=== PATIENT | male | born 1985 | race Caucasian/White ===

== ENCOUNTER 2020-04-12 15:01 | Inpatient (IN) ==
[2020-04-12] MEDS ORDERED: SODIUM CHLORIDE 0.9% 1000ML 2,000 ML IV SCH (15:30)
--- NOTE | 2020-04-12 15:49 | XRay Report ---
XR chest 1V portable HISTORY: 34 years-old Male seizure acute seizure like activity COMPARISON: None TECHNIQUE: Portable AP view of the chest FINDINGS: Cardiomediastinal and hilar silhouettes are within normal limits. No pneumothorax, pleural effusion, airspace consolidation or overt pulmonary edema. Bones of the chest appear grossly intact. IMPRESSION: No acute process. ACT 112: Negative or not required by law. The above report was generated using voice recognition software. It may contain grammatical, syntax o r spelling errors. Electronically signed by: Jorje Aguero M.D. 04/12/2020 3:47 PM
[2020-04-12 15:58] LABS: Basophils # (auto) 0.08 K/uL (0-0.2); Basophils % (auto) 1.1 %; Eosinophils # (auto) 0.01 K/uL (0-0.5); Eosinophils % (auto) 0.1 %; Hematocrit (blood only) 41.4 % (42-52); Hemoglobin 13.8 g/dL (14.0-18.0); Immature Granulocytes # (auto) 0.02 K/uL (0.00-0.02); Immature Granulocytes % (auto) 0.3 %; Lymphocytes # (auto) 0.59 K/uL (1.2-3.4); Lymphocytes % (auto) 8.3 %; Mean Corpuscular Hemoglobin 32.8 pg (25-34); Mean Corpuscular Hgb Conc 33.3 g/dL (32-36); Mean Corpuscular Volume 98.3 fL (80-100); Mean Platelet Volume 10.9 fL (7.4-10.4); Monocytes # (auto) 1.02 K/uL (0.11-0.59); Monocytes % (auto) 14.4 %; Neutrophils # (auto) 5.38 K/uL (1.4-6.5); Neutrophils % (auto) 75.8 %; Platelet Count 124 K/uL (130-400); RDW Coefficient of Variation 13.3 % (11.5-14.5); RDW Standard Deviation 47.8 fL (36.4-46.3); Red Blood Count 4.21 M/uL (4.7-6.1)
--- NOTE | 2020-04-12 16:14 | CT Scan Report ---
CT SCAN OF THE BRAIN WITHOUT IV CONTRAST CLINICAL HISTORY: Seizure. COMPARISON STUDY: No priors. TECHNIQUE: Unenhanced axial CT scan of the brain is performed from the vertex to the skull base. A d ose lowering technique was utilized adhering to the principles of ALARA. CT DOSE: 537.48 mGy.cm FINDINGS: Brain parenchyma: Mild involutional change is advanced for age. Changes in the anterior frontal white matter are likely related to a remote insult. There is no hemorrhage, mass effect, or evidence of ac [place] territorial ischemia by CT criteria. Brizuela-white matter differentiation is preserved. No extra-axi al fluid collection is seen. Ventricles, sulci, cisterns: Normal in configuration. Intracranial vasculature: The visualized intracranial vasculature at the skull base is normal in appe arance. Calvarium: Unremarkable. Sinuses and mastoids: The visualized paranasal sinuses are clear. The mastoid air cells are well pneu matized. Orbits: The bony orbits are grossly intact. IMPRESSION: 1. There is no hemorrhage, mass effect, or evidence of acute territorial ischemia by CT criteria. 2. Mild involutional change is advanced for age. ACT 112: Negative or not required by law. Electronically signed by: Nolan Tejeda M.D. 04/12/2020 4:12 PM
[2020-04-12 16:19] LABS: Alanine Aminotransferase 106 U/L (12-78); Albumin Level 4.6 gm/dl (3.4-5.0); Aspartate Aminotransferase 184 U/L (15-37); BUN Creatinine Ratio 3.7 (10-20); Blood Urea Nitrogen 4 mg/dl (7-18); Calcium 10.4 mg/dl (8.5-10.1); Carbon Dioxide 16 mmol/L (21-32); Chloride 99 mmol/L (98-107); Creatinine Clr Calc Pharmacy 96.8 ml/min; Est GFR (African American) 117.6; Est GFR (Non-African American) 101.4; Glucose 87 mg/dl (70-99); Magnesium 1.6 mg/dl (1.8-2.4); Potassium 3.8 mmol/L (3.5-5.1); Sodium 135 mmol/L (136-145)
[2020-04-12 16:22] LABS: Albumin Globulin Ratio 1.2 (0.9-2); Alkaline Phosphatase 74 U/L (45-117); Bilirubin,Total 1.4 mg/dl (0.2-1); Globulin 3.9 gm/dl (2.5-4.0); Total Protein 8.5 gm/dl (6.4-8.2)
[2020-04-12 16:48] LABS: Troponin I < 0.015 ng/ml (0-0.045)
[2020-04-12] MEDS ORDERED: THIAMINE HCL 100 MG in SYRINGE 9 ML IV STA (16:49)
[2020-04-12] MEDS ORDERED: LORazepam 2 MG/4 ML VIAL IV STA (16:49)
[2020-04-12] MEDS ORDERED: FOLIC ACID 1 MG in SYRINGE 9.8 ML IV STA (16:49)
--- NOTE | 2020-04-12 16:49 | Emergency Department Note ---
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 He sat down and then he woke up. Per report from EMS the gentleman that were working with him saw him shaking and having a seizure. EMS was called and he was brought in. He was slightly confused when he woke back up. Patient has no other complaints at this time. He denies any headache, change in vision, chest pain shortness of breath nausea vomiting or diarrhea. He notes this is never happened before. ROS: See above HPI for pertinent positives & negatives. A total of 10 systems reviewed and were otherwise negative. PAST MEDICAL HISTORY:None PAST SURGICAL HISTORY:None FAMILY HISTORY:See Below SOCIAL HISTORY:admits to alcohol abuse HOME MEDICATIONS:See Below ALLERGIES:See Below VITALS:See Below PHYSICAL EXAMINATION: GENERAL: Sitting up in bed, alert, disheveled, shaking in the upper extremities EYE EXAM: normal conjunctiva. PERRL and EOM's intact. OROPHARYNX: no exudate, no erythema, lips, buccal mucosa, and tongue normal and mucous membranes are moist NECK: supple, no nuchal rigidity, no adenopathy, non-tender LUNGS: Clear to auscultation. Normal chest wall mechanics HEART: Tachycardic S1 normal and S2 normal ABDOMEN: abdomen soft, non-tender, normo-active bowel sounds, no masses, no rebound or guarding. BACK: Back is symmetrical on inspection and there is no deformity, no midline tenderness, no CVA tenderness. SKIN: no rashes and no bruising UPPER EXTREMITIES: upper extremities are grossly normal. LOWER EXTREMITIES: No pitting edema. NEURO EXAM: Normal sensorium, cranial nerves II-XII intact, normal speech, no weakness of arms, no weakness of legs. No drift. Finger to nose intact. Gross sensation intact. Tremors in a upper extremities MEDICAL DECISION MAKING: Patient is a 34-year-old male who presents the ER for possible seizure. IV was established blood work was obtained. Patient was persistently tachycardic in the 140s to 150s. Labs showed no significant leukocytosis or anemia. BMP with a CO2 of 16 initially had a gap of 20. Creatinine was normal. Magnesium was low at 1.6. T bili was slightly up at 1.5. There is a transaminitis in the mid 100s. Troponin was negative. Glucose was low. I walked in and gave the gen [employer] sandwich and orange juice. After prolonged discussion he admits that he is an alcoholic and has been drinking constantly for the past 2 years. He drinks about 10-12 beers a day. He has been drinking less recently. After discussion with the she notes that this has happened once before in the past. She notes that he has significantly cut down on his drinking recently. UA was negative. Tox was negative. After prolonged discussion with the patient who wanted to leave and the at bedside he was eventually agreeable to staying. Patient was given IV thiamine, folic acid, 2 L of fluids, multivitamin and Ativan. Heart rate had trended down. CT head was negative. Chest x-ray was unremarkable. EKG shows sinus tachycardia. Patient was discussed with hospitalist for admission. Triage Nursing notes reviewed. Prior medical records reviewed Vital Signs: reviewed and remarkable for hypertensive and tachycardic Differential diagnosis: Differential diagnosis includes etiologies such as infection, hypoglycemia, electrolyte abnormalities, cardiac sources, intracerebral event, trauma, toxicologic, neurologic, as well as others were entertained. ER treatment provided: See below Diagnostics interpreted by me: ECG: Sinus tachycardia rate of 125 Normal axis No PVCs Normal QTC Cardiac Monitoring: An order was placed for continuous cardiac monitoring. The monitor shows a rate of 128 with sinus rhythm. Laboratory studies: As stated above and show below. Imaging studies: CT head shows no acute pathology Consultation(s): Discussed with [facility] hospitalist ED COURSE: Procedures: none Critical Care: None Past Med/Surg History Social History Feels Safe at Home: Yes Smoking Status: Never smoker Allergies Allergies Allergy/AdvReac Type Severity Reaction Status Date / Time No Known Allergies Allergy Verified 04/12/20 16:47 Home Meds Home Medications Medication Instructions Recorded Confirmed No Known Home Medications 04/12/20 04/12/20 Results & Data (ED) Vital Signs Vital Signs - 24 hr 04/12/20 15:23 04/12/20 15:29 Temperature 37.1 C Temperature Source Oral Pulse Rate 137 H Respiratory Rate 18 Respiratory Effort / Characteristics Non-Labored Spontaneous Respiratory Depth Normal Respiratory Pattern Regular Blood Pressure 149/97 H Blood Pressure Mean 114 Pulse Oximetry 97 97 Oxygen Delivery Method Room Air Room Air Sepsis Recent Fever Within 48 Hours No Sepsis New/Unexplained Change in Mental Status No Sepsis Action Taken by Nursing No Action Required Laboratory Data Result diagrams: 04/12/20 15:45 04/12/20 16:36 Lab Results 04/12/20 04/12/20 04/12/20 Range/Units 15:45 15:45 16:24 WBC 7.10 (4.8-10.8) K/uL RBC 4.21 L (4.7-6.1) M/uL Hgb 13.8 L (14.0-18.0) g/dL Hct 41.4 L (42-52) % MCV 98.3 (80-100) fL MCH 32.8 (25-34) pg MCHC 33.3 (32-36) g/dL RDW Std Deviation 47.8 H (36.4-46.3) fL RDW Coeff of Joan 13.3 (11.5-14.5) % Plt Count 124 L (130-400) K/uL MPV 10.9 H (7.4-10.4) fL Immature Gran % (Auto) 0.3 % Neut % (Auto) 75.8 % Lymph % (Auto) 8.3 % Ida % (Auto) 14.4 % Eos % (Auto) 0.1 % Baso % (Auto) 1.1 % Immature Gran # (Auto) 0.02 (0.00-0.02) K/uL Neut # (Auto) 5.38 (1.4-6.5) K/uL Lymph # (Auto) 0.59 L (1.2-3.4) K/uL Ida # (Auto) 1.02 H (0.11-0.59) K/uL Eos # (Auto) 0.01 (0-0.5) K/uL Baso # (Auto) 0.08 (0-0.2) K/uL VBG pH (7.36-7.41) VBG pCO2 (38-50) mmHg VBG pO2 mmHg VBG HCO3 mmol/L VBG O2 Saturation % VBG Base Excess mEq/L Barometric Pressure mm/Hg Sodium 135 L (136-145) mmol/L Potassium 3.8 (3.5-5.1) mmol/L Chloride 99 (98-107) mmol/L Carbon Dioxide 16 L (21-32) mmol/L Anion Gap 20.0 H (3-11) BUN 4 L (7-18) mg/dl Creatinine 0.97 (0.6-1.4) mg/dl Est Cr Clr Drug Dosing 96.8 ml/min Est GFR ( Amer) 117.6 Est GFR (Non-Af Amer) 101.4 BUN/Creatinine Ratio 3.7 L (10-20) Glucose 87 (70-99) mg/dl POC Glucose (70-99) mg/dl Calcium 10.4 H (8.5-10.1) mg/dl Phosphorus (2.5-4.9) mg/dl Magnesium 1.6 L (1.8-2.4) mg/dl Total Bilirubin 1.4 H (0.2-1) mg/dl AST 184 H (15-37) U/L ALT 106 H (12-78) U/L Alkaline Phosphatase 74 (45-117) U/L Troponin I < 0.015 (0-0.045) ng/ml Total Protein 8.5 H (6.4-8.2) gm/dl Albumin 4.6 (3.4-5.0) gm/dl Globulin 3.9 (2.5-4.0) gm/dl Albumin/Globulin Ratio 1.2 (0.9-2) Urine Color Urine Appearance (Clear) Urine pH (4.5-7.5) Ur Specific [place] (1.000-1.030) Urine Protein (Negative) Urine Glucose (UA) (Negative) Urine Ketones (Negative) Urine Blood (Negative) Urine Nitrite (Negative) Urine Bilirubin (Negative) Urine Urobilinogen (Negative) Ur Leukocyte Esterase (Negative) Urine WBC (Auto) (0-5) /hpf Urine RBC (Auto) (0-4) /hpf U Hyaline Cast (Auto) (0-5) /lpf U Epithel Cells (Auto) (0-5) /lpf Urine Bacteria (Auto) (Negative) Urine Opiates Screen Neg (Neg) Ur Methadone, Qual Neg (Neg) Urine Barbiturates Neg (Neg) Ur Phencyclidine (PCP) Neg (Neg) U Amphetamin/Meth Scrn Neg (Neg) MDMA (Ecstasy) Screen Neg (Neg) U Benzodiazepines Scrn Neg (Neg) Ur Cocaine Metabolite Neg (Neg) U Marijuana (THC) Screen Neg (Neg) 04/12/20 04/12/20 04/12/20 Range/Units 16:24 16:36 16:36 WBC (4.8-10.8) K/uL RBC (4.7-6.1) M/uL Hgb (14.0-18.0) g/dL Hct (42-52) % MCV (80-100) fL MCH (25-34) pg MCHC (32-36) g/dL RDW Std Deviation (36.4-46.3) fL RDW Coeff of Joan (11.5-14.5) % Plt Count (130-400) K/uL MPV (7.4-10.4) fL Immature Gran % (Auto) % Neut % (Auto) % Lymph % (Auto) % Ida % (Auto) % Eos % (Auto) % Baso % (Auto) % Immature Gran # (Auto) (0.00-0.02) K/uL Neut # (Auto) (1.4-6.5) K/uL Lymph # (Auto) (1.2-3.4) K/uL Ida # (Auto) (0.11-0.59) K/uL Eos # (Auto) (0-0.5) K/uL Baso # (Auto) (0-0.2) K/uL VBG pH 7.38 (7.36-7.41) VBG pCO2 35 L (38-50) mmHg VBG pO2 52 mmHg VBG HCO3 20 mmol/L VBG O2 Saturation < 60.0 % VBG Base Excess -4.3 mEq/L Barometric Pressure 738.9 mm/Hg Sodium 137 (136-145) mmol/L Potassium 3.5 (3.5-5.1) mmol/L Chloride 103 (98-107) mmol/L Carbon Dioxide 19 L (21-32) mmol/L Anion Gap 16.0 H (3-11) BUN 3 L (7-18) mg/dl Creatinine 0.78 (0.6-1.4) mg/dl Est Cr Clr Drug Dosing 120.4 ml/min Est GFR ( Amer) 136.5 Est GFR (Non-Af Amer) 117.8 BUN/Creatinine Ratio 3.4 L (10-20) Glucose 59 L (70-99) mg/dl POC Glucose (70-99) mg/dl Calcium 9.5 (8.5-10.1) mg/dl Phosphorus (2.5-4.9) mg/dl Magnesium (1.8-2.4) mg/dl Total Bilirubin 1.5 H (0.2-1) mg/dl AST 176 H (15-37) U/L ALT 104 H (12-78) U/L Alkaline Phosphatase 72 (45-117) U/L Troponin I (0-0.045) ng/ml Total Protein 7.8 (6.4-8.2) gm/dl Albumin 4.5 (3.4-5.0) gm/dl Globulin 3.3 (2.5-4.0) gm/dl Albumin/Globulin Ratio 1.4 (0.9-2) Urine Color Yellow Urine Appearance Clear (Clear) Urine pH 5.0 (4.5-7.5) Ur Specific [place] 1.014 (1.000-1.030) Urine Protein 2+ H (Negative) Urine Glucose (UA) Negative (Negative) Urine Ketones 1+ H (Negative) Urine Blood 2+ H (Negative) Urine Nitrite Negative (Negative) Urine Bilirubin Negative (Negative) Urine Urobilinogen Negative (Negative) Ur Leukocyte Esterase Negative (Negative) Urine WBC (Auto) 1-5 (0-5) /hpf Urine RBC (Auto) 0-4 (0-4) /hpf U Hyaline Cast (Auto) 5-10 H (0-5) /lpf U Epithel Cells (Auto) 5-10 H (0-5) /lpf Urine Bacteria (Auto) Negative (Negative) Urine Opiates Screen (Neg) Ur Methadone, Qual (Neg) Urine Barbiturates (Neg) Ur Phencyclidine (PCP) (Neg) U Amphetamin/Meth Scrn (Neg) MDMA (Ecstasy) Screen (Neg) U Benzodiazepines Scrn (Neg) Ur Cocaine Metabolite (Neg) U Marijuana (THC) Screen (Neg) 04/12/20 04/12/20 Range/Units 16:36 17:22 WBC (4.8-10.8) K/uL RBC (4.7-6.1) M/uL Hgb (14.0-18.0) g/dL Hct (42-52) % MCV (80-100) fL MCH (25-34) pg MCHC (32-36) g/dL RDW Std Deviation (36.4-46.3) fL RDW Coeff of Joan (11.5-14.5) % Plt Count (130-400) K/uL MPV (7.4-10.4) fL Immature Gran % (Auto) % Neut % (Auto) % Lymph % (Auto) % Ida % (Auto) % Eos % (Auto) % Baso % (Auto) % Immature Gran # (Auto) (0.00-0.02) K/uL Neut # (Auto) (1.4-6.5) K/uL Lymph # (Auto) (1.2-3.4) K/uL Ida # (Auto) (0.11-0.59) K/uL Eos # (Auto) (0-0.5) K/uL Baso # (Auto) (0-0.2) K/uL VBG pH (7.36-7.41) VBG pCO2 (38-50) mmHg VBG pO2 mmHg VBG HCO3 mmol/L VBG O2 Saturation % VBG Base Excess mEq/L Barometric Pressure mm/Hg Sodium (136-145) mmol/L Potassium (3.5-5.1) mmol/L Chloride (98-107) mmol/L Carbon Dioxide (21-32) mmol/L Anion Gap (3-11) BUN (7-18) mg/dl Creatinine (0.6-1.4) mg/dl Est Cr Clr Drug Dosing ml/min Est GFR ( Amer) Est GFR (Non-Af Amer) BUN/Creatinine Ratio (10-20) Glucose (70-99) mg/dl POC Glucose 66 L* (70-99) mg/dl Calcium (8.5-10.1) mg/dl Phosphorus 2.4 L (2.5-4.9) mg/dl Magnesium (1.8-2.4) mg/dl Total Bilirubin (0.2-1) mg/dl AST (15-37) U/L ALT (12-78) U/L Alkaline Phosphatase (45-117) U/L Troponin I (0-0.045) ng/ml Total Protein (6.4-8.2) gm/dl Albumin (3.4-5.0) gm/dl Globulin (2.5-4.0) gm/dl Albumin/Globulin Ratio (0.9-2) Urine Color Urine Appearance (Clear) Urine pH (4.5-7.5) Ur Specific [place] (1.000-1.030) Urine Protein (Negative) Urine Glucose (UA) (Negative) Urine Ketones (Negative) Urine Blood (Negative) Urine Nitrite (Negative) Urine Bilirubin (Negative) Urine Urobilinogen (Negative) Ur Leukocyte Esterase (Negative) Urine WBC (Auto) (0-5) /hpf Urine RBC (Auto) (0-4) /hpf U Hyaline Cast (Auto) (0-5) /lpf U Epithel Cells (Auto) (0-5) /lpf Urine Bacteria (Auto) (Negative) Urine Opiates Screen (Neg) Ur Methadone, Qual (Neg) Urine Barbiturates (Neg) Ur Phencyclidine (PCP) (Neg) U Amphetamin/Meth Scrn (Neg) MDMA (Ecstasy) Screen (Neg) U Benzodiazepines Scrn (Neg) Ur Cocaine Metabolite (Neg) U Marijuana (THC) Screen (Neg) Administered Medications Discontinued Medications Sodium Chloride (Nss 1000ml) 2,000 mls @ 999 mls/hr IV .Q2H1M DEON Stop: 04/12/20 17:30 Last Admin: 04/12/20 16:08 Dose: 999 mls/hr Documented by: [id number] Discharge Plan Visit Data Chief Complaint: Seizure ED Provider: Ayo Kruger Discharge Problem: Alcohol withdrawal, Seizure, Tachycardia, Transaminitis, Hypoglycemia Forms Stand Alone Forms: [facility] [place] Prescriptions Prescriptions: No Action No Known Home Medications RF: 0 Discharge Problem: Alcohol withdrawal Qualifiers: Complication of substance-induced condition: with unspecified complication Qualified Code(s): F10.239 - Alcohol dependence with withdrawal, unspecified
[2020-04-12 16:57] LABS: Base Excess VBG -4.3 mEq/L; HCO3 VBG 20 mmol/L; PCO2 VBG 35 mmHg (38-50); PO2 VBG 52 mmHg; pH VBG 7.38 (7.36-7.41)
[2020-04-12] MEDS ORDERED: MULTIVITAMIN TAB PO SCH (17:00)
[2020-04-12 17:01] LABS: Oxygen Saturation VBG < 60.0 %
[2020-04-12 17:08] LABS: Appearance Urine Clear (Clear); Bacteria Urine Automated Negative (Negative); Bilirubin Urine Negative (Negative); Blood Urine 2+ (Negative); Color Urine Yellow; Glucose Urine UA Negative (Negative); Ketones Urine 1+ (Negative); Leukocyte Esterase Urine Negative (Negative); Nitrite Urine Negative (Negative); Protein Urine 2+ (Negative); RBC Urine Automated 0-4 /hpf (0-4); Specific Gravity Urine 1.014 (1.000-1.030); Urobilinogen Urine Negative (Negative)
[2020-04-12 17:11] LABS: Albumin Level 4.5 gm/dl (3.4-5.0); BUN Creatinine Ratio 3.4 (10-20); Calcium 9.5 mg/dl (8.5-10.1); Creatinine Clr Calc Pharmacy 120.4 ml/min; Est GFR (African American) 136.5; Est GFR (Non-African American) 117.8; Potassium 3.5 mmol/L (3.5-5.1)
[2020-04-12 17:14] LABS: Albumin Globulin Ratio 1.4 (0.9-2); Bilirubin,Total 1.5 mg/dl (0.2-1); Globulin 3.3 gm/dl (2.5-4.0); Total Protein 7.8 gm/dl (6.4-8.2)
[2020-04-12 17:27] LABS: Amphetamines+Metham, Urine Neg (Neg); Barbiturates, Urine Neg (Neg); Benzodiazepine, Urine Neg (Neg); Cocaine, Urine Neg (Neg); MDMA (Ecstacy), Urine Neg (Neg); Methadone, Urine Neg (Neg); Opiate, Urine Neg (Neg); Phencyclidine, Urine Neg (Neg)
[2020-04-12] MEDS ORDERED: LORazepam 1.5 MG/3 ML VIAL IV STA (17:54)
--- NOTE | 2020-04-12 18:00 | Communication Note ---
Date of Service: April 12, 2020 History and physical exam performed by me. History significant for 35-year-old man with history of alcohol abuse, alcohol withdrawal seizure 2 years ago who presented following a seizure episode at work. Patient reported some dizziness just prior to seizures. Could not provide any more history regarding seizures due to loss of consciousness. Last drink was yesterday at 7pm. Drinks 6-8 beers per day. Currently reports some anxiety. Denied any hallucinations (visual, tactile, auditory) Physical exam General: No acute distress, mild tremors of outstretched arms Eyes: PERRL, conjunctivae normal, not pale, anicteric sclerae, EOM intact bilaterally ENMT: External ear and nose normal, oropharynx normal Neck: Normal visual inspection Respiratory: Normal respiratory effort, no respiratory distress, lungs clear to auscultation, no crackles and no wheezes Cardiovascular: Tachycardic. Pulse is regular. S1-2, no pedal edema Gastrointestinal (Abdomen): Abdomen is not distended, soft, non-tender to palpation, no guarding, no palpable hepatosplenomegaly, normal bowel sounds Musculoskeletal: No cyanosis or clubbing, all extremities motor strength 5/5, no pedal edema Neurologic: Alert and oriented x 3, No focal weakness, sensation grossly intact Psychiatric: Euthymic effect Labs significant for platelet count of 124, bicarb of 16, anion gap of 20, magnesium of 1.6, total bilirubin of 1.4, AST of 184, ALT of 106 CT head did not show any acute abnormalities -Seizures, likely alcohol withdrawal -Alcohol abuse -High anion gap Metabolic acidosis -Tr IV ativan CIWA protocol with ativan and gabapentin Discussed alcohol rehab with patient. He is interested in rehab. Get dietary services manager consult IV thiamine stat and continue po daily Folic acid Continue IVF Get alcohol level, lactate Replete electrolyte Monitor LFTs Other plans as detailed in Johanna Cope PA-C's note
--- NOTE | 2020-04-12 18:08 | History & Physical Report ---
Date of Service April 12, 2020 Assessment & Plan (1) Seizure: (2) Alcohol withdrawal: Pt is 34 y/o M with PMH ETOH abuse, seizure in 2018 presented to ER with C/O seizure. 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 Co-workers were able to make sure pt did not fall and lower him to the ground. Pt does not remember incident. It is reported pt was post-ictal after event. Upon ER arrival pt is awake, alert, shaky and anxious. Pt reports drinks 8-12 beers daily. Last drink 7pm on 04/11/2020 Reported h/o seizure in 2018 that pt reports was ETOH withdrawal seizure. Probable alcohol withdrawal seizure vs seizure other etiology In ER pt afebrile, P: 137, R: 18, BP: 149/97, 97% on RA. No leukocytosis, CO2: 19, A, gluc: 59, magnesium: 1.6, phosphorus: 2.4, T Bili: 1.5, AST: 176, ALT: 104, Alk Phos: 72. Urine tox screen negative -In ER given Ativan 2mg IV, Thiamine 100mg IV, Folic acid 1mg IV, multivitamin. Pt given orange juice, peanut butter crackers and sandwich -ETOH level and lactic acid level pending -PCU admit -Seizure precautions -Alcohol withdrawal protocol with IV Ativan, Gabapentin -IVF -Replace electrolytes as below -Folic acid, thiamine and multivitamin daily -EEG -Neurology consult CBC, CMP, magnesium and phosphorus labs in am (3) Alcohol abuse: -ETOH cessation recommended -ETOH withdrawal treatment as above -Pt voices interest in alcohol rehab (4) Hypomagnesemia: Magnesium: 1.6 -Replace and monitor (5) Hypophosphatemia: Phosphorus: 2.4 -Replace and monitor (6) Transaminitis: T Bili: 1.5, AST: 176, ALT: 104, Alk Phos: 72 -Monitor LFTs DVT Prophylaxis -SCDs Full Code Pt previously followed with Dr Kaur, however has not seen 10/2018 Pt was seen and care coordinated with Dr Wu. See addendum History of Present Illness Chief Complaint: Seizure like activity Primary Care Provider: NO PCP Pt is 34 y/o M with PMH ETOH abuse, seizure in 2018 presented to ER with C/O seizure. 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 Co-workers were able to make sure pt did not fall and lower him to the ground. Pt does not remember incident. It is reported pt was post-ictal after event. Upon ER arrival pt is awake, alert, shaky and anxious. Pt reports drinks 8-12 beers daily. Last drink 7pm last night. Reports h/o seizure in 2018 that pt reports was ETOH withdrawal seizure. He denies any recurrent seizure like activity until today. Denies fever/chills, diaphoresis, N/V/D/C, DOTY, dizziness, syncope, vision changes, neck pain, CP, SOB, orthopnea, palpitations, cough, sore throat, choking, otalgia, rhinorrhea, abdominal pain, paresthesias, weakness, extremity weakness, extremity edema, rashes, hallucinations, urinary symptoms. Denies recreational drug use. Allergies Allergy/AdvReac Type Severity Reaction Status Date / Time No Known Allergies Allergy Verified 04/12/20 16:47 Home Medications Home Medications Medication Instructions Recorded Confirmed Type No Known Home Medications 04/12/20 04/12/20 History Past Med/Surg History Medical History Alcohol abuse Surgical History (Updated 04/12/20 @ 18:06 by Johanna Cope PA-C) No significant past surgical history Family History (Updated 04/12/20 @ 18:06 by Johanna Cope PA-C) Grandfather (Paternal) Coronary heart disease Stroke Social History (Updated 04/12/20 @ 18:06 by Johanna Cope PA-C) Feels Safe at Home: Yes Smoking Status: Never smoker Tobacco Type: smokeless tobacco ; Do You Dip or Chew Tobacco: Yes ; Hx Alcohol Use: Yes (8-12 beers daily) Hx Substance Use: No Review of Systems Review of Systems: All systems reviewed & are unremarkable except as noted in HPI & below Physical Exam Physical Exam: General: +anxious appearing, +shaky, WDWN Head: normocephalic, atraumatic Eyes: PERRL, EOM's intact, conjunctiva non-injected, anicteric ENT: normal inspection external ears, nose, mucous membranes moist Neck: supple, trachea midline Lungs: clear, no respiratory distress, no wheezing/rhonchi/rales CV: RRR, no murmur, no pretibial edema Abd: normal BS, soft, non-tender Ext: no cyanosis, no calf tenderness Neuro: Alert, oriented to person, place, month and year, +shaking, no other focal deficits noted, normal affect Skin: warm, dry Results & Data Results & Data ([facility]) Vital Signs (Past 12 Hours) Vital Signs Temp Pulse Pulse Resp BP BP Pulse Ox 04/12/20 17:00 133 H 24 152/115 H 97 04/12/20 15:29 97 04/12/20 15:23 37.1 C 137 H 18 149/97 H 97 Laboratory Results Short CBC 04/12/20 Range/Units 15:45 WBC 7.10 (4.8-10.8) K/uL Hgb 13.8 L (14.0-18.0) g/dL Hct 41.4 L (42-52) % Plt Count 124 L (130-400) K/uL BMP 04/12/20 04/12/20 15:45 16:36 Sodium 135 L 137 Potassium 3.8 3.5 Chloride 99 103 Carbon Dioxide 16 L 19 L BUN 4 L 3 L Creatinine 0.97 0.78 Glucose 87 59 L Calcium 10.4 H 9.5 Cardiac Enzymes 04/12/20 Range/Units 15:45 Troponin I < 0.015 (0-0.045) ng/ml Liver Function 04/12/20 04/12/20 Range/Units 15:45 16:36 Total Bilirubin 1.4 H 1.5 H (0.2-1) mg/dl AST 184 H 176 H (15-37) U/L ALT 106 H 104 H (12-78) U/L Alkaline Phosphatase 74 72 (45-117) U/L Albumin 4.6 4.5 (3.4-5.0) gm/dl Urine 04/12/20 Range/Units 16:24 Urine Color Yellow Urine Appearance Clear (Clear) Urine pH 5.0 (4.5-7.5) Ur Specific [place] 1.014 (1.000-1.030) Urine Protein 2+ H (Negative) Urine Glucose (UA) Negative (Negative) Diagnostic Findings CT HEAD: IMPRESSION: 1. There is no hemorrhage, mass effect, or evidence of acute territorial ischemia by CT criteria. 2. Mild involutional change is advanced for age. CXR: IMPRESSION: No acute process. ECG Rhythm: sinus tachycardia Code Status & VTE Plan VTE Prophylaxis Plan VTE Prophylaxis will be ordered: Yes Supervising Physician Co-Signing Physician Notes History and physical exam performed by me. History significant for 35-year-old man with history of alcohol abuse, alcohol withdrawal seizure 2 years ago who presented following a seizure episode at work. Patient reported some dizziness just prior to seizures. Could not provide any more history regarding seizures due to loss of consciousness. Last drink was yesterday at 7pm. Drinks 6-8 beers per day. Currently reports some anxiety. Denied any hallucinations (visual, tactile, auditory) Physical exam General: No acute distress, mild tremors of outstretched arms Eyes: PERRL, conjunctivae normal, not pale, anicteric sclerae, EOM intact bilaterally ENMT: External ear and nose normal, oropharynx normal Neck: Normal visual inspection Respiratory: Normal respiratory effort, no respiratory distress, lungs clear to auscultation, no crackles and no wheezes Cardiovascular: Tachycardic. Pulse is regular. S1-2, no pedal edema Gastrointestinal (Abdomen): Abdomen is not distended, soft, non-tender to palpation, no guarding, no palpable hepatosplenomegaly, normal bowel sounds Musculoskeletal: No cyanosis or clubbing, all extremities motor strength 5/5, no pedal edema Neurologic: Alert and oriented x 3, No focal weakness, sensation grossly intact Psychiatric: Euthymic effect Labs significant for platelet count of 124, bicarb of 16, anion gap of 20, magnesium of 1.6, total bilirubin of 1.4, AST of 184, ALT of 106 CT head did not show any acute abnormalities -Seizures, likely alcohol withdrawal -Alcohol abuse -High anion gap Metabolic acidosis -Elevated liver enzymes IV ativan CIWA protocol with ativan and gabapentin Discussed alcohol rehab with patient. He is interested in rehab. Get Case manage r consult IV thiamine stat and continue po daily Folic acid Continue IVF Get alcohol level, lactate Replete electrolyte Monitor LFTs Other plans as detailed in Johanna Cope PA-C's note (1) Alcohol withdrawal Complication of substance-induced condition: with unspecified complication Qualified Code(s): F10.239 - Alcohol dependence with withdrawal, unspecified
[2020-04-12] MEDS ORDERED: ONDANSETRON INJ 2 MG/ML 2 ML VIAL IV PRN (19:27)
[2020-04-12] MEDS ORDERED: GABAPENTIN 1200MG ALCOHOL WITHDRAWAL LOAD PO STA (19:27)
[2020-04-12] MEDS ORDERED: ACETAMINOPHEN 325 MG TAB PO PRN (19:27)
[2020-04-12] MEDS ORDERED: POTASSIUM PHOS 3 MMOL/1 ML INFUSION IV STA (19:27)
[2020-04-12] MEDS ORDERED: LORazepam 2 MG/4 ML VIAL IV PRN (19:27)
[2020-04-12] MEDS ORDERED: ATIVAN IV ALCOHOL WITHDRAWL IV PRN (19:27)
[2020-04-12] MEDS ORDERED: GABAPENTIN 600 MG TAB PO SCH (20:00)
[2020-04-12] MEDS ORDERED: POTASSIUM PHOSPHATE 15 MMOL in SODIUM CHLORIDE 0.9% 250 ML IV ONE (20:00)
[2020-04-12] MEDS: MAGNESIUM SULFATE / D5W 1 GM/100 ML BAG IV SCH ×2 (20:40→22:08)
[2020-04-12] MEDS: SODIUM CHLORIDE 0.9% 1000ML 1,000 ML IV SCH (20:40)
[2020-04-12] MEDS: LORazepam 1 MG/2 ML VIAL IV PRN (20:40)
[2020-04-13] MEDS: SODIUM CHLORIDE 0.9% 1000ML 1,000 ML IV SCH ×3 (04:30→21:26)
[2020-04-13] MEDS: GABAPENTIN 600 MG TAB PO SCH ×2 (06:34→11:11)
[2020-04-13 06:58] LABS: Hematocrit (blood only) 37.6 % (42-52); Hemoglobin 12.5 g/dL (14.0-18.0); Mean Corpuscular Hemoglobin 32.6 pg (25-34); Mean Corpuscular Hgb Conc 33.2 g/dL (32-36); Mean Corpuscular Volume 97.9 fL (80-100); Mean Platelet Volume 10.7 fL (7.4-10.4); Platelet Count 115 K/uL (130-400); RDW Coefficient of Variation 13.5 % (11.5-14.5); RDW Standard Deviation 48.4 fL (36.4-46.3); Red Blood Count 3.84 M/uL (4.7-6.1); White Blood Count 4.78 K/uL (4.8-10.8)
[2020-04-13 07:07] LABS: Alanine Aminotransferase 81 U/L (12-78); Albumin Level 3.7 gm/dl (3.4-5.0); Aspartate Aminotransferase 117 U/L (15-37); BUN Creatinine Ratio 6.5 (10-20); Blood Urea Nitrogen 4 mg/dl (7-18); Calcium 8.9 mg/dl (8.5-10.1); Carbon Dioxide 22 mmol/L (21-32); Chloride 107 mmol/L (98-107); Creatinine Clr Calc Pharmacy 159.2 ml/min; Est GFR (African American) > 150.0; Est GFR (Non-African American) 132.1; Glucose 71 mg/dl (70-99); Magnesium 2.2 mg/dl (1.8-2.4); Potassium 3.9 mmol/L (3.5-5.1); Sodium 139 mmol/L (136-145)
[2020-04-13 07:11] LABS: Albumin Globulin Ratio 1.1 (0.9-2); Alkaline Phosphatase 58 U/L (45-117); Bilirubin,Total 1.6 mg/dl (0.2-1); Globulin 3.5 gm/dl (2.5-4.0); Phosphorus 3.2 mg/dl (2.5-4.9); Total Protein 7.2 gm/dl (6.4-8.2)
[2020-04-13] MEDS: MULTIVITAMIN TAB PO SCH (07:57)
[2020-04-13] MEDS: THIAMINE HCL 100 MG TAB PO SCH (07:57)
[2020-04-13] MEDS: FOLIC ACID 1 MG TAB PO SCH (07:57)
[2020-04-13] MEDS ORDERED: LORazepam 0.5 MG/1 ML VIAL IV PRN (08:10)
[2020-04-13] MEDS ORDERED: chlordiazePOXIDE ALCOHOL WITHDRAWL 50MG PO STA (11:47)
--- NOTE | 2020-04-13 11:50 | Hospitalist Progress Note ---
Date of Service April 13, 2020 Assessment & Plan (1) Seizure: (2) Alcohol withdrawal: Seizure episode, possible alcohol withdrawal related versus underlying primary seizure disorder Per admitting service notes Pt is 34 y/o M with PMH ETOH abuse, seizure in 2018 presented to ER with C/O seizure. 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 Co-workers were able to make sure pt did not fall and lower him to the ground. Pt does not remember incident. It is reported pt was post-ictal after event. Upon ER arrival pt is awake, alert, shaky and anxious. Pt reports drinks 8-12 beers daily. Last drink 7pm on 04/11/2020 Reported h/o seizure in 2018 that pt reports was ETOH withdrawal seizure. CT head: No acute process Change gabapentin to Librium protocol Continue alcohol withdrawal protocol IV NSS Seizure precautions EEG pending Neurologist consulted (3) Alcohol abuse: Patient reiterates interest in joining alcohol rehab program Case management over (4) Hypomagnesemia: -Replace and monitor (5) Hypophosphatemia: -Replace and monitor (6) Transaminitis: T Bili: 1.5, AST: 176, ALT: 104, Alk Phos: 72 -Likely secondary to alcoholism -Monitor LFTs DVT Prophylaxis -SCDs Full Code Pt previously followed with Dr Kaur, however has not seen 10/2018 Plan of care discussed in detail and at length with patient Offered to call his family for update, patient declined at this time Questions were answered He is understanding, stable, comfortable with the plan of care Admission and Anticipated Discharge Date Admission Date: April 12, 2020 Subjective Follow-up for seizure, possible alcohol withdrawal related No acute issues overnight as per RN Seen resting in bed, comfortable, not in distress Oriented 3, pleasant, cooperative States he feels a little bit more anxious, shaky this morning Denies confusion, hallucinations No headache, dizziness, chest pain, shortness of breath, abdominal pain No other symptoms Denies depression Review of Systems Review of Systems: All systems reviewed & are unremarkable except as noted in HPI & below Physical Exam Physical Exam: General- oriented x 3, not in distress, speaks in sentences with no effort or accessory muscle use Head- atraumatic Eyes- PERRL, EOMI, anicteric ENT- oropharynx clear Neck- supple, no JVD, no adenopathy, no thyromegaly; carotids +2/2, no bruits appreciated Lungs- clear to auscultation bilaterally, no rales/wheezes Heart- normal rate, regular rhythm; no murmur, no gallop, no rub appreciated Abdomen- normal bowel sounds, nondistended, soft, nontender, no masses or hepatosplenomegaly Extremities- no pretibial edema, no calf tenderness; peripheral pulses intact Positive mild hand tremors Neuro- alert, oriented x 3; CN 2-12 grossly intact; motor 5/5 bilaterally;sensation 100% on all extremities; no other gross focal neurologic deficits Skin- warm & dry Results & Data Results & Data ([facility]) Vital Signs (Past 12 Hours) Vital Signs Temp Pulse Pulse Resp BP Pulse Ox 04/13/20 11:22 36.9 C 99 H 18 137/81 99 04/13/20 10:35 99 H 04/13/20 08:01 37 C 115 H 19 138/87 97 04/13/20 03:49 36.6 C 99 H 17 125/83 97 04/12/20 23:52 36.8 C 113 H 17 124/76 97 Laboratory Results Laboratory Results - last 24 hr 04/12/20 04/12/20 04/12/20 15:45 15:45 16:24 WBC 7.10 RBC 4.21 L Hgb 13.8 L Hct 41.4 L MCV 98.3 MCH 32.8 MCHC 33.3 RDW Std Deviation 47.8 H RDW Coeff of Joan 13.3 Plt Count 124 L MPV 10.9 H Immature Gran % (Auto) 0.3 Neut % (Auto) 75.8 Lymph % (Auto) 8.3 [place] % (Auto) 14.4 Eos % (Auto) 0.1 Baso % (Auto) 1.1 Immature Gran # (Auto) 0.02 Neut # (Auto) 5.38 Lymph # (Auto) 0.59 L [place] # (Auto) 1.02 H Eos # (Auto) 0.01 Baso # (Auto) 0.08 VBG pH VBG pCO2 VBG pO2 VBG HCO3 VBG O2 Saturation VBG Base Excess Barometric Pressure Sodium 135 L Potassium 3.8 Chloride 99 Carbon Dioxide 16 L Anion Gap 20.0 H BUN 4 L Creatinine 0.97 Est Cr Clr Drug Dosing 96.8 Est GFR ( Amer) 117.6 Est GFR (Non-Af Amer) 101.4 BUN/Creatinine Ratio 3.7 L Glucose 87 POC Glucose Lactate Calcium 10.4 H Phosphorus Magnesium 1.6 L Total Bilirubin 1.4 H AST 184 H ALT 106 H Alkaline Phosphatase 74 Troponin I < 0.015 Total Protein 8.5 H Albumin 4.6 Globulin 3.9 Albumin/Globulin Ratio 1.2 Folate Urine Color Urine Appearance Urine pH Ur Specific [place] Urine Protein Urine Glucose (UA) Urine Ketones Urine Blood Urine Nitrite Urine Bilirubin Urine Urobilinogen Ur Leukocyte Esterase Urine WBC (Auto) Urine RBC (Auto) U Hyaline Cast (Auto) U Epithel Cells (Auto) Urine Bacteria (Auto) Urine Opiates Screen Neg Ur Methadone, Qual Neg Urine Barbiturates Neg Ur Phencyclidine (PCP) Neg U Amphetamin/Meth Scrn Neg MDMA (Ecstasy) Screen Neg U Benzodiazepines Scrn Neg Ur Cocaine Metabolite Neg U Marijuana (THC) Screen Neg Ethyl Alcohol mg/dL 04/12/20 04/12/20 04/12/20 16:24 16:36 16:36 WBC RBC Hgb Hct MCV MCH MCHC RDW Std Deviation RDW Coeff of Joan Plt Count MPV Immature Gran % (Auto) Neut % (Auto) Lymph % (Auto) [place] % (Auto) Eos % (Auto) Baso % (Auto) Immature Gran # (Auto) Neut # (Auto) Lymph # (Auto) [place] # (Auto) Eos # (Auto) Baso # (Auto) VBG pH 7.38 VBG pCO2 35 L VBG pO2 52 VBG HCO3 20 VBG O2 Saturation < 60.0 VBG Base Excess -4.3 Barometric Pressure 738.9 Sodium 137 Potassium 3.5 Chloride 103 Carbon Dioxide 19 L Anion Gap 16.0 H BUN 3 L Creatinine 0.78 Est Cr Clr Drug Dosing 120.4 Est GFR ( Amer) 136.5 Est GFR (Non-Af Amer) 117.8 BUN/Creatinine Ratio 3.4 L Glucose 59 L POC Glucose Lactate Calcium 9.5 Phosphorus Magnesium Total Bilirubin 1.5 H AST 176 H ALT 104 H Alkaline Phosphatase 72 Troponin I Total Protein 7.8 Albumin 4.5 Globulin 3.3 Albumin/Globulin Ratio 1.4 Folate Urine Color Yellow Urine Appearance Clear Urine pH 5.0 Ur Specific [place] 1.014 Urine Protein 2+ H Urine Glucose (UA) Negative Urine Ketones 1+ H Urine Blood 2+ H Urine Nitrite Negative Urine Bilirubin Negative Urine Urobilinogen Negative Ur Leukocyte Esterase Negative Urine WBC (Auto) 1-5 Urine RBC (Auto) 0-4 U Hyaline Cast (Auto) 5-10 H U Epithel Cells (Auto) 5-10 H Urine Bacteria (Auto) Negative Urine Opiates Screen Ur Methadone, Qual Urine Barbiturates Ur Phencyclidine (PCP) U Amphetamin/Meth Scrn MDMA (Ecstasy) Screen U Benzodiazepines Scrn Ur Cocaine Metabolite U Marijuana (THC) Screen Ethyl Alcohol mg/dL 04/12/20 04/12/20 04/12/20 16:36 17:22 17:54 WBC RBC Hgb Hct MCV MCH MCHC RDW Std Deviation RDW Coeff of Joan Plt Count MPV Immature Gran % (Auto) Neut % (Auto) Lymph % (Auto) [place] % (Auto) Eos % (Auto) Baso % (Auto) Immature Gran # (Auto) Neut # (Auto) Lymph # (Auto) [place] # (Auto) Eos # (Auto) Baso # (Auto) VBG pH VBG pCO2 VBG pO2 VBG HCO3 VBG O2 Saturation VBG Base Excess Barometric Pressure Sodium Potassium Chloride Carbon Dioxide Anion Gap BUN Creatinine Est Cr Clr Drug Dosing Est GFR ( Amer) Est GFR (Non-Af Amer) BUN/Creatinine Ratio Glucose POC Glucose 66 L* Lactate 1.4 Calcium Phosphorus 2.4 L Magnesium Total Bilirubin AST ALT Alkaline Phosphatase Troponin I Total Protein Albumin Globulin Albumin/Globulin Ratio Folate Urine Color Urine Appearance Urine pH Ur Specific [place] Urine Protein Urine Glucose (UA) Urine Ketones Urine Blood Urine Nitrite Urine Bilirubin Urine Urobilinogen Ur Leukocyte Esterase Urine WBC (Auto) Urine RBC (Auto) U Hyaline Cast (Auto) U Epithel Cells (Auto) Urine Bacteria (Auto) Urine Opiates Screen Ur Methadone, Qual Urine Barbiturates Ur Phencyclidine (PCP) U Amphetamin/Meth Scrn MDMA (Ecstasy) Screen U Benzodiazepines Scrn Ur Cocaine Metabolite U Marijuana (THC) Screen Ethyl Alcohol mg/dL 04/12/20 04/12/20 04/13/20 17:54 18:57 06:27 WBC 4.78 L RBC 3.84 L Hgb 12.5 L Hct 37.6 L MCV 97.9 MCH 32.6 MCHC 33.2 RDW Std Deviation 48.4 H RDW Coeff of Joan 13.5 Plt Count 115 L MPV 10.7 H Immature Gran % (Auto) Neut % (Auto) Lymph % (Auto) [place] % (Auto) Eos % (Auto) Baso % (Auto) Immature Gran # (Auto) Neut # (Auto) Lymph # (Auto) [place] # (Auto) Eos # (Auto) Baso # (Auto) VBG pH VBG pCO2 VBG pO2 VBG HCO3 VBG O2 Saturation VBG Base Excess Barometric Pressure Sodium Potassium Chloride Carbon Dioxide Anion Gap BUN Creatinine Est Cr Clr Drug Dosing Est GFR ( Amer) Est GFR (Non-Af Amer) BUN/Creatinine Ratio Glucose POC Glucose 115 H Lactate Calcium Phosphorus Magnesium Total Bilirubin AST ALT Alkaline Phosphatase Troponin I Total Protein Albumin Globulin Albumin/Globulin Ratio Folate Urine Color Urine Appearance Urine pH Ur Specific [place] Urine Protein Urine Glucose (UA) Urine Ketones Urine Blood Urine Nitrite Urine Bilirubin Urine Urobilinogen Ur Leukocyte Esterase Urine WBC (Auto) Urine RBC (Auto) U Hyaline Cast (Auto) U Epithel Cells (Auto) Urine Bacteria (Auto) Urine Opiates Screen Ur Methadone, Qual Urine Barbiturates Ur Phencyclidine (PCP) U Amphetamin/Meth Scrn MDMA (Ecstasy) Screen U Benzodiazepines Scrn Ur Cocaine Metabolite U Marijuana (THC) Screen Ethyl Alcohol mg/dL < 3.0 04/13/20 04/13/20 06:27 12:04 WBC RBC Hgb Hct MCV MCH MCHC RDW Std Deviation RDW Coeff of Joan Plt Count MPV Immature Gran % (Auto) Neut % (Auto) Lymph % (Auto) [place] % (Auto) Eos % (Auto) Baso % (Auto) Immature Gran # (Auto) Neut # (Auto) Lymph # (Auto) [place] # (Auto) Eos # (Auto) Baso # (Auto) VBG pH VBG pCO2 VBG pO2 VBG HCO3 VBG O2 Saturation VBG Base Excess Barometric Pressure Sodium 139 Potassium 3.9 Chloride 107 Carbon Dioxide 22 Anion Gap 10.0 BUN 4 L Creatinine 0.59 L Est Cr Clr Drug Dosing 159.2 Est GFR ( Amer) > 150.0 Est GFR (Non-Af Amer) 132.1 BUN/Creatinine Ratio 6.5 L Glucose 71 POC Glucose Lactate Calcium 8.9 Phosphorus 3.2 Magnesium 2.2 Total Bilirubin 1.6 H AST 117 H ALT 81 H Alkaline Phosphatase 58 Troponin I Total Protein 7.2 Albumin 3.7 Globulin 3.5 Albumin/Globulin Ratio 1.1 Folate > 24.00 Urine Color Urine Appearance Urine pH Ur Specific [place] Urine Protein Urine Glucose (UA) Urine Ketones Urine Blood Urine Nitrite Urine Bilirubin Urine Urobilinogen Ur Leukocyte Esterase Urine WBC (Auto) Urine RBC (Auto) U Hyaline Cast (Auto) U Epithel Cells (Auto) Urine Bacteria (Auto) Urine Opiates Screen Ur Methadone, Qual Urine Barbiturates Ur Phencyclidine (PCP) U Amphetamin/Meth Scrn MDMA (Ecstasy) Screen U Benzodiazepines Scrn Ur Cocaine Metabolite U Marijuana (THC) Screen Ethyl Alcohol mg/dL (1) Alcohol withdrawal Complication of substance-induced condition: with unspecified complication Qualified Code(s): F10.239 - Alcohol dependence with withdrawal, unspecified
[2020-04-13] MEDS: chlordiazePOXIDE HCl 25 MG CAP PO SCH ×2 (12:11→17:07)
[2020-04-13] MEDS: LORazepam 1 MG/2 ML VIAL IV PRN ×2 (12:22→15:27)
--- NOTE | 2020-04-13 15:18 | Electrocardiogram Report ---
Test Reason : Blood Pressure : / mmHG Vent. Rate : 125 BPM Atrial Rate : 125 BPM P-R Int : 142 ms QRS Dur : 082 ms QT Int : 316 ms P-R-T Axes : 054 045 035 degrees QTc Int : 456 ms Sinus tachycardia Possible Left atrial enlargement Borderline ECG No previous ECGs available Confirmed by Frank Rodriguez ([id number]) on 04/13/2020 3:17:52 PM Referred By: Confirmed By:Gino Rodriguez
[2020-04-13 16:13] LABS: Albumin Level 3.9 gm/dl (3.4-5.0); Bilirubin Direct 0.4 mg/dl (0-0.2); Bilirubin,Total 1.3 mg/dl (0.2-1); Total Protein 7.4 gm/dl (6.4-8.2)
--- NOTE | 2020-04-13 16:24 | Electroencephalogram ---
EEG Procedure Note Date of Service April 13, 2020 Start / End Times Start Time: 0600 End Time: 0620 Referring Physician Belgica Trammell MD History Single witnessed seizure with prior ethanol withdrawal seizure approximately a year ago occurring in setting of only brief abstinence from alcohol question underlying potentially epileptogenic EEG activity Home Medication List Home Medications Medication Instructions Recorded Confirmed Type No Known Home Medications 04/12/20 04/12/20 History Inpatient Medication List Chlordiazepoxide HCl (Librium) 50 mg PO Q6H DEON; Taper Stop: 04/16/20 11:59 Last Admin: 04/13/20 12:11 Dose: 50 mg Documented by: [id number] Folic Acid (Folvite) 1 mg PO QA DEON Stop: 05/13/20 08:59 Last Admin: 04/13/20 07:57 Dose: 1 mg Documented by: [id number] Lorazepam (Ativan) 1 mg in 2 mls @ 2 mls/min IV UD PRN; Protocol PRN Reason: EtOH Withdrawl AWSS Score 6,7 Stop: 05/12/20 19:26 Last Admin: 04/13/20 15:27 Dose: 2 mls/min Documented by: [id number] Admin: 04/13/20 12:22 Dose: 2 mls/min Documented by: [id number] Admin: 04/12/20 20:40 Dose: 2 mls/min Documented by: [id number] Lorazepam (Ativan) 0.5 mg in 1 mls @ 1 mls/min IV Q4H PRN PRN Reason: Anxiety Stop: 05/13/20 08:09 Last Admin: 04/13/20 11:35 Dose: 1 mls/min Documented by: [id number] Sodium Chloride (Nss 1000ml) 1,000 mls @ 125 mls/hr IV .Q8H DEON Stop: 05/13/20 15:29 Last Admin: 04/13/20 15:28 Dose: 125 mls/hr Documented by: [id number] Multivitamins (Multivitamin Tab) [facility] [place]: 05/13/20 08:59 Last Admin: 04/13/20 07:57 Dose: 1 tab Documented by: [id number] Thiamine HCl (Vitamin B-1) 100 mg PO QAM [facility] Stop: 05/13/20 08:59 Last Admin: 04/13/20 07:57 Dose: 100 mg Documented by: [id number] Discontinued Medications Gabapentin (Neurontin) 1,200 mg PO TODAY@2000 DEON Stop: 04/12/20 20:01 Last Admin: 04/12/20 20:41 Dose: 1,200 mg Documented by: [id number] Gabapentin (Neurontin) 600 mg PO Q6H DEON Stop: 04/13/20 12:01 Last Admin: 04/13/20 11:11 Dose: 600 mg Documented by: [id number] Admin: 04/13/20 06:34 Dose: 600 mg Documented by: [id number] Sodium Chloride (Nss 1000ml) 2,000 mls @ 999 mls/hr IV .Q2H1M DEON Stop: 04/12/20 17:30 Last Infusion: 04/12/20 18:31 Dose: 0 mls/hr Documented by: [id number] Admin: 04/12/20 16:08 Dose: 999 mls/hr Documented by: [id number] Thiamine HCl 100 mg/ Syringe 10 mls @ 2 mls/min IV NOW STA Stop: 04/12/20 16:53 Last Admin: 04/12/20 18:04 Dose: 2 mls/min Documented by: [id number] Folic Acid 1 mg/ Syringe 10 mls @ 5 mls/min IV NOW STA Stop: 04/12/20 16:50 Last Admin: 04/12/20 18:03 Dose: 5 mls/min Documented by: [id number] Lorazepam (Ativan) 1.5 mg in 3 mls @ 3 mls/min IV NOW STA Stop: 04/12/20 17:55 Last Admin: 04/12/20 18:59 Dose: Not Given Documented by: [id number] Magnesium Sulfate/Dextrose (Magnesium Sulfate / D5w) 1 gm in 100 mls @ 50 mls/hr IV Q2H DEON Stop: 04/12/20 23:44 Last Infusion: 04/13/20 00:08 Dose: 0 mls/hr Documented by: [id number] Admin: 04/12/20 22:08 Dose: 50 mls/hr Documented by: [id number] Infusion: 04/12/20 22:08 Dose: 50 mls/hr Documented by: [id number] Admin: 04/12/20 20:40 Dose: 50 mls/hr Documented by: [id number] Sodium Chloride (Nss 1000ml) 1,000 mls @ 125 mls/hr IV .Q8H DEON Stop: 04/13/20 11:26 Last Infusion: 04/13/20 12:24 Dose: 0 mls/hr Documented by: [id number] Admin: 04/13/20 04:30 Dose: 125 mls/hr Documented by: [id number] Infusion: 04/13/20 04:30 Dose: 125 mls/hr Documented by: [id number] Admin: 04/12/20 20:40 Dose: 125 mls/hr Documented by: [id number] Potassium Phosphate 15 mmol/ (Sodium Chloride) 255 mls @ 88 mls/hr IV ONE ONE Stop: 04/12/20 22:53 Last Infusion: 04/12/20 23:13 Dose: 0 mls/hr Documented by: [id number] Admin: 04/12/20 20:40 Dose: 88 mls/hr Documented by: [id number] Multivitamins (Multivitamin Tab) 1 tab PO QAM DEON Stop: 05/12/20 16:59 Last Admin: 04/12/20 18:03 Dose: 1 tab Documented by: [id number] Description This is a 21 electrode EEG with a single channel dedicated to limited EKG. The electrodes were placed in accordance with the International 10-20 system. This EEG was done as a bedside recording is of excellent technical quality with fewer no muscle movement artifacts. Video analysis of patient movement behavior was obtained and revealed no abnormal activity. Photic stimulation was performed. Please during wakefulness there is evidence for normal-appearing background rhythm in the alpha range of up to 10 Hz and maximum frequency and 30 V microvolts a maximum amplitude. This is maximum posterior head regions and bilaterally symmetrical. Polymorphic mid frequency theta activity is seen symmetrically over the central regions and beta activity seen bifrontally At no time is or evidence for potentially epileptogenic discharges Photic stimulation provokes a modest driving response without a photo myogenic a photoparoxysmal component Interpretation This is a normal EEG during wakefulness without evidence for focal or generalized encephalopathy and without evidence for potentially epileptogenic activity Clinical Correlation This EEG reveals no evidence for potentially epileptogenic activity but.does not exclude the diagnosis of a seizure disorder Ruddy Bethea MD
--- NOTE | 2020-04-13 16:33 | Communication Note ---
Date of Service: April 13, 2020 I have interviewed briefly examined this young man reviewed his history, reviewed the laboratory studies and imaging studies that have been done and agree that the diagnosis is probably that of an alcohol-related seizure although not clearly a typical withdrawal seizure although he did manifest symptoms of alcohol withdrawal tremulousness that has responded now to the DT protocol He had a similar seizure about a year ago clearly in the setting of alcohol withdrawal of about 48 hours and was not treated Current event was witnessed occurred on a roof and fortunately did not result in any harm as individuals with him were able to prevent him from falling He admits that he had somewhat less beer than he generally drank (8 cans versus a maximum of 15) and is possible that this represented a significant withdrawal He had mild hypomagnesemia and hypophosphatemia no other laboratory abnormalities EEG is absolutely normal but does not of course exclude an underlying seizure disorder CT scan shows some advanced involutional changes that was done without contrast On exam he is still a little tremulous alert oriented has no focal neurologic d eficits including a lack of cranial nerve deficits normal strength sensation etc. and professes a desire to try to cut down his ethanol consumption I remain very reluctant to treat this man with anticonvulsants as I consider this an alcohol-related seizure possibly due to relative reduction in his chronic daily level of alcohol consumption or to toxic effects of alcohol itself is either will be sufficient to produce a single seizure I would suggest that if he is going to be held overnight I suspect he will that we do an MRI scan just to be certain as we can that there is no underlying significant structural disorder that could produce seizures unrelated to alcohol and certainly if after discharge he has more events in the setting of sustained abstinence from alcohol and he will need a work-up for a primary seizure disorder and will likely need an ambulatory EEG etc. I have taken liberty of ordering the MRI scan and if he is in the hospital again tomorrow I will drop by his room for now think he probably could be discharged if he is gone without seizures and the MRI remains unremarkable and can be seen by neurology on an as-needed basis Ruddy Bethea MD
[2020-04-13] MEDS: LORazepam 3 MG/6 ML VIAL IV PRN ×2 (17:22→17:42)
[2020-04-13] MEDS ORDERED: GLUCAGON FOR INJ 1 MG VIAL SQ PRN (18:24)
[2020-04-13] MEDS ORDERED: DEXTROSE 50% 50 ML SYRINGE IV PRN (18:24)
[2020-04-13] MEDS ORDERED: GLUCOSE 10 TABS/TUBE PO PRN (18:24)
[2020-04-13] MEDS ORDERED: GLUCOSE 40% GEL 15 GM TUBE PO PRN (18:24)
[2020-04-13] MEDS ORDERED: CARBOHYDRATES FOR HYPOGLYCEMIA PO PRN (18:24)
[2020-04-13] MEDS ORDERED: STAT IV Infusion **Titration per Protocol STA ×2 (18:25→19:37)
[2020-04-13] MEDS ORDERED: LORazepam 5 MG/10 ML VIAL IV STA (18:48)
--- NOTE | 2020-04-13 18:55 | Critical Care Consultation ---
Date of Consultation April 13, 2020 Assessment & Plan (1) DTs (delirium tremens): EKG 616 12/17/2019: Sinus tachycardia, normal axis, no ST-T wave changes appreciated. Chest x-ray 04/12/2020:Portable film, good inspiratory effort, bilateral costophrenic and cardiophrenic angles are clean. No clear infiltrate appreciated. --Metabolic encephalopathy Likely secondary to DTs UDS was negative on 04/12/2020, alcohol level less than 3 Patient usually drinks 20 cans of beer on a daily basis. Last drink was greater than 48 hours ago Patient had one episode of seizure as well at work. On the floor patient was on alcohol withdrawal protocol but he was getting more restless and agitated We will start the patient on Precedex drip. Keep the patient RASS -1. If there is any compromise of maintaining upper airway will intubate the patient start the patient on IV midazolam drip. --Seizure CT head negative Neurology on board Currently thinking that this is most likely from alcohol withdrawal. They do recommend an MRI of the brain. I will order it once the patient is more stable. Patient has similar episode in the past couple of years ago. He has not been on any antiseizure medications Magnesium greater than 2. Replace electrolytes as needed. --Transaminitis Likely secondary to history of alcohol abuse AST, ALT trending down T bili 1.6 with direct bili 0.4, there is a component of indirect bili as well Monitor --Thrombocytopenia Likely secondary to the toxicity of alcohol Monitor --Prophylaxis DVT: IPC's, patient is thrombocytopenic would avoid chemical prophylaxis I have personally spent 63 minutes of critical care time in the direct management of this patient. This is a life/limb threatening event. This includes time spent evaluating patient, direct bedside care, chart review, placing orders, interpretation of diagnostic studies, discussion with consultants, patient, and family members, as well as other required patient management activities. This time is exclusive of all separately billable procedures, and teaching time and separate from and in addition to any other critical care service time. Please note the above document was generated using voice recognition software. It may contain grammatical, syntax or spelling errors. (2) Seizure: History of Present Illness Attending Physician: Harvinder Bhat MD History of Present Illness 34-year-old male with past medical history of alcohol abuse was admitted to the hospital because of one episode of seizure which occurred while he was working with generalized shaking. He had some postictal status after the event. Patient usually drinks 15 to 20 cans of beer on a daily basis. He has started to cut down since last 2 days to significantly lower level than he is usually. ICU evaluation was called as he was still very tremulous and getting more delirious tachycardic and hypertensive even while getting chlordiazepoxide and Ativan. At the time of examination patient was restless. He was awake alert oriented to only self. He did not know where he was. His blood pressure was 155/105 with heart rate of 115 saturating 98% on room air. He was continuously trying to get of the bed. Patient denies any visual hallucinations. No tactile hallucinations. He denies any auditory hallucinations. Patient had gotten 3 mg of Ativan 10 minutes before I saw the patient. 5 mg of Ativan stat was ordered and to be repeated again in 5 minutes if the patient is not calm. Patient is confused and not a good historian. History was obtained from previ ous notes and ER documentation. Allergies Allergy/AdvReac Type Severity Reaction Status Date / Time No Known Allergies Allergy Verified 04/12/20 16:47 Home Medications Home Medications Medication Instructions Recorded Confirmed Type No Known Home Medications 04/12/20 04/12/20 History Patient History Medical History Alcohol abuse Surgical History (Updated 04/12/20 @ 18:06 by Johanna Cope PA-C) No significant past surgical history Family History (Updated 04/12/20 @ 18:06 by Johanna Cope PA-C) Grandfather (Paternal) Coronary heart disease Stroke Social History (Updated 04/12/20 @ 18:06 by Johanna Cope PA-C) Preferred Language: Belgian Communication Ability: Effective Resident Care Associate Required: No Beliefs That Will Affect Care: None Current Living Situation: Spouse Other Information That Helps Us Care for You: No Feels Safe at Home: Yes Safety Concerns: Feels Safe At This Time Smoking Status: Never smoker Tobacco Type: smokeless tobacco ; Do You Dip or Chew Tobacco: Yes ; Tobacco Cessation Education Requested by Patient: Yes Hx Alcohol Use: Yes Alcohol type: beer Hx Substance Use: No Review of Systems Review of Systems: Unobtainable due to cognitive status Physical Exam Physical Exam: Constitutional: Restless HEENT: EOMI, PERRLA Respiratory system: Good air entry bilaterally, no wheeze, no rhonchi, no crackles CVS: S1-S2 positive, no murmurs or gallops, tachycardia Abdomen: Soft, nontender, nondistended, positive bowel sounds x4 Extremities: +2 pulses bilaterally radialis/ dorsalis pedis, no cyanosis, no edema Neuro: Awake and oriented to self Psych: Restless G/U: No Hubbard Skin: no rashes, warm and dry Lymphatic: no cervical or axillary lymphadenopathy Results & Data Results & Data ([facility]) Vital Signs (Past 12 Hours) Vital Signs Temp Pulse Pulse Resp BP Pulse Ox 04/13/20 15:59 93 H 04/13/20 15:40 36.9 C 87 20 136/91 98 04/13/20 11:22 36.9 C 99 H 18 137/81 99 04/13/20 10:35 99 H 04/13/20 08:01 37 C 115 H 19 138/87 97 04/13/20 06:27 04/13/20 06:27 Coding Level of Care Code Critical Care 1st 30-74 mins Diagnoses DTs (delirium tremens) F10.231 Seizure R56.9 Time Spent (min) 63
[2020-04-13] MEDS: DEXMEDETOMIDINE HCL 200 MCG in SODIUM CHLORIDE 0.9% 48 ML IV SCH ×2 (19:00→21:27)
[2020-04-13] MEDS: NICOTINE 21 MG/24 HR TDSY TD SCH (19:02)
[2020-04-13] MEDS ORDERED: MIDAZOLAM HCL 5 MG/ML 1 ML VIAL ONE (19:19)
[2020-04-13] MEDS ORDERED: ETOMIDATE 2 MG/ML 20 ML VIAL IV ONE (19:20)
[2020-04-13] MEDS ORDERED: ROCURONIUM BROMIDE 10 MG/ML 5 ML VIAL IV ONE (19:20)
[2020-04-13] MEDS ORDERED: LIDOCAINE 2% 20 MG/ML 5 ML SYR IV ONE (19:21)
[2020-04-13] MEDS ORDERED: PROPOFOL IV EMULSION 10 MG/ML 100 ML VIAL IV ONE (19:23)
--- NOTE | 2020-04-13 19:50 | Procedure Note ---
Procedure Note Date of Service April 13, 2020 INTUBATION PROCEDURE NOTE: Attending: Dr Hadley Corado MD Patient was evaluated and plan to intubate was made for metabolic encephalopathy/DTs. Sedative agent used: Etomidate 20 mg, lidocaine 100 mg Paralysis agent used: Rocuronium 40 mg Emergent consent was implied given patients rapidly declining clinical status and need for airway protection. The patient was prepared in the appropriate fashion. The patient was easily pre-oxygenated by using gup-yxyxo-upix ventilation. With help of glide scope grade 1 vocal cords were visualized and 7.5 Tajik ETT was introduced on first attempt to 23 cm at the lip. The stylette was removed and balloon was inflated with 10mL of air. Appropriate Colorimetric change was appreciated for at least 10 breaths. Bilateral chest rise and breath sounds were appreciated without air sounds in the epigastrium. Patient tolerated the procedure well and there were no immediate complications. Chest Xray to follow for confirming placement. Coding CPT Codes Resuscitation - Resuscitation: 41268 Endotracheal Intubation, emergency ([id number]) [facility] Procedure Codes (Charges) Resuscitation Resuscitation: 48056 Endotracheal Intubation, emergency
--- NOTE | 2020-04-13 19:58 | XRay Report ---
XR chest 1V portable HISTORY: 34 years-old Male intubation acute respiratory failure COMPARISON: Chest radiograph 04/12/2020 TECHNIQUE: Portable AP view of the chest FINDINGS: Cardiac mediastinal and hilar silhouettes are within normal limits. Endotracheal tube overlies the mi dline, 2.1 cm superior to the ruby. No pneumothorax, pleural effusion, airspace consolidation or ov ert pulmonary edema. Bones of the chest appear grossly intact. Mild convex right curvature of the mid to lower thoracic spine. IMPRESSION: 1. Endotracheal tube terminates 2.1 cm superior to the ruby. 2. The lungs appear clear. ACT 112: Negative or not required by law. The above report was generated using voice recognition software. It may contain grammatical, syntax o r spelling errors. Electronically signed by: Jorje Aguero M.D. 04/13/2020 7:57 PM
[2020-04-13] MEDS: MIDAZOLAM HCL 125 MG/250 ML BAG IV SCH (20:00)
[2020-04-13 20:15] LABS: iSTAT Allen Test Pass; iSTAT Arterial Blood Gas HCO3 27 meg/L (19-24); iSTAT Arterial Blood Gas pCO2 39 mmHg (35-46); iSTAT Arterial Blood Gas pH 7.44 (7.35-7.45); iSTAT Arterial Blood Gas pO2 > 420 mmHg (80-95); iSTAT Carbon Dioxide 28 mmol/L (24-31); iSTAT FiO2 100 %; iSTAT Site R Radial
[2020-04-13 20:37] LABS: BUN Creatinine Ratio 4.9 (10-20); Blood Urea Nitrogen 3 mg/dl (7-18); Calcium 9.1 mg/dl (8.5-10.1); Carbon Dioxide 24 mmol/L (21-32); Chloride 104 mmol/L (98-107); Creatinine Clr Calc Pharmacy 159.2 ml/min; Est GFR (African American) > 150.0; Est GFR (Non-African American) 132.1; Glucose 98 mg/dl (70-99); Magnesium 1.7 mg/dl (1.8-2.4); Phosphorus 2.6 mg/dl (2.5-4.9); Sodium 139 mmol/L (136-145)
[2020-04-13 21:24] LABS: Potassium 3.2 mmol/L (3.5-5.1)
[2020-04-13] MEDS: MAGNESIUM SULFATE / D5W 1 GM/100 ML BAG IV SCH ×2 (21:26→22:45)
[2020-04-13] MEDS: POTASSIUM CHLORIDE / WTR 10 MEQ/100 ML PLCT IV SCH ×3 (21:49→23:46)
[2020-04-13] MEDS ORDERED: GABAPENTIN 600 MG TAB PO SCH (22:00)
[2020-04-14] MEDS: DEXMEDETOMIDINE HCL 200 MCG in SODIUM CHLORIDE 0.9% 48 ML IV SCH ×4 (00:21→07:57)
[2020-04-14] MEDS: chlordiazePOXIDE HCl 25 MG CAP PO SCH ×2 (00:22→05:38)
[2020-04-14] MEDS ORDERED: ICU ELECTROLYTE REPLACEMENT PROTOCOL PRN (00:26)
[2020-04-14] MEDS: MAGNESIUM SULFATE / D5W 1 GM/100 ML BAG IV SCH (01:11)
[2020-04-14] MEDS: POTASSIUM CHLORIDE / WTR 10 MEQ/100 ML PLCT IV SCH ×5 (01:17→10:10)
[2020-04-14 04:47] LABS: Hematocrit (blood only) 38.9 % (42-52); Hemoglobin 12.7 g/dL (14.0-18.0); Mean Corpuscular Hemoglobin 32.2 pg (25-34); Mean Corpuscular Hgb Conc 32.6 g/dL (32-36); Mean Corpuscular Volume 98.5 fL (80-100); RDW Coefficient of Variation 13.3 % (11.5-14.5); RDW Standard Deviation 48.1 fL (36.4-46.3); Red Blood Count 3.95 M/uL (4.7-6.1); White Blood Count 4.84 K/uL (4.8-10.8)
[2020-04-14 04:59] LABS: INR 1.3 (0.9-1.1); Partial Thromboplastin Ratio 0.9; Prothrombin Time 13.3 Seconds (9.0-12.0)
[2020-04-14 05:08] LABS: Alanine Aminotransferase 70 U/L (12-78); Albumin Level 3.5 gm/dl (3.4-5.0); Aspartate Aminotransferase 84 U/L (15-37); BUN Creatinine Ratio 5.2 (10-20); Blood Urea Nitrogen 3 mg/dl (7-18); Calcium 8.9 mg/dl (8.5-10.1); Carbon Dioxide 25 mmol/L (21-32); Chloride 110 mmol/L (98-107); Creatinine Clr Calc Pharmacy 180.6 ml/min; Est GFR (African American) > 150.0; Est GFR (Non-African American) 139.1; Glucose 112 mg/dl (70-99); Magnesium 2.2 mg/dl (1.8-2.4); Potassium 3.6 mmol/L (3.5-5.1); Sodium 142 mmol/L (136-145)
[2020-04-14 05:10] LABS: Alkaline Phosphatase 53 U/L (45-117); Bilirubin,Total 1.2 mg/dl (0.2-1); Globulin 3.5 gm/dl (2.5-4.0)
[2020-04-14] MEDS ORDERED: POTASSIUM CHLORIDE / WTR 10 MEQ/100 ML PLCT IV SCH (05:24)
[2020-04-14 05:25] LABS: Mean Platelet Volume 10.5 fL (7.4-10.4); Platelet Count 99 K/uL (130-400)
[2020-04-14 05:26] LABS: Basophils # (auto) 0.05 K/uL (0-0.2); Eosinophils % (auto) 8.3 %; Giant Platelets 1+; Immature Granulocytes # (auto) 0.01 K/uL (0.00-0.02); Immature Granulocytes % (auto) 0.2 %; Lymphocytes # (auto) 1.27 K/uL (1.2-3.4); Lymphocytes % (auto) 26.2 %; Monocytes # (auto) 0.62 K/uL (0.11-0.59); Monocytes % (auto) 12.8 %; Neutrophils # (auto) 2.49 K/uL (1.4-6.5); Neutrophils % (auto) 51.5 %; Platelet Estimate Decreased (Normal)
[2020-04-14] MEDS: SODIUM CHLORIDE 0.9% 1000ML 1,000 ML IV SCH (05:37)
[2020-04-14 05:50] LABS: iSTAT Allen Test Pass; iSTAT Arterial Blood Gas HCO3 25 meg/L (19-24); iSTAT Arterial Blood Gas pCO2 44 mmHg (35-46); iSTAT Arterial Blood Gas pH 7.37 (7.35-7.45); iSTAT Arterial Blood Gas pO2 156 mmHg (80-95); iSTAT Carbon Dioxide 27 mmol/L (24-31); iSTAT FiO2 40 %; iSTAT Site R Radial
[2020-04-14] MEDS ORDERED: LIDOCAINE 2% 20 MG/ML 5 ML SYR IV STA (07:24)
[2020-04-14] MEDS ORDERED: ROCURONIUM BROMIDE 10 MG/ML 5 ML VIAL IV STA (07:26)
[2020-04-14] MEDS ORDERED: MIDAZOLAM HCL 5 MG/ML VIAL IV STA (07:29)
[2020-04-14] MEDS ORDERED: ETOMIDATE 2 MG/ML 20 ML VIAL IV ONE (07:30)
[2020-04-14] MEDS: MIDAZOLAM BOLUS FROM BAG IV PRN ×3 (07:58→19:10)
[2020-04-14] MEDS ORDERED: MIDAZOLAM BOLUS FROM BAG IV ONE (08:09)
--- NOTE | 2020-04-14 09:01 | Critical Care Progress Note ---
Date of Service April 14, 2020 Assessment & Plan (1) DTs (delirium tremens): EKG 04/12/2020: Sinus tachycardia, normal axis, no ST-T wave changes appreciated. -- VDRF secondary to metabolic encephalopathy Secondary to DTs Continue with ventilatory support Keep RASS -1: -2 Chlorhexidine mouthwash UDS was negative on 04/12/2020, alcohol level less than 3 Patient had one episode of seizure as well at work. --Seizure CT head negative Neurology on board Currently thinking that this is most likely from alcohol withdrawal. They do recommend an MRI of the brain. Patient has similar episode in the past couple of years ago. He has not been on any antiseizure medications Magnesium greater than 2. Replace electrolytes as needed. 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 Monitor --Prophylaxis VTE: IPC's, patient is thrombocytopenic would avoid chemical prophylaxis GI: Protonix Diet: N.p.o. Plan: In/out: +1348, Urine output 3151 Change p.o. multivitamins to IV banana bag. We will not like to put an OGT as the plan is to extubate him tomorrow preferably. Keep the patient RASS -1. Patient is very restless whenever he is moved even on high dose of Precedex and midazolam. Will defer MRI to later when the patient is more calm or preferably extubated. I have personally spent 36 minutes of critical care time in the direct management of this patient. This is a life/limb threatening event. This includes time spent evaluating patient, direct bedside care, chart review, placing orders, interpretation of diagnostic studies, discussion with consultants, patient, and family members, as well as other required patient management activities. This time is exclusive of all separately billable procedures, and teaching time and separate from and in addition to any other critical care service time. Please note the above document was generated using voice recognition software. It may contain grammatical, syntax or spelling errors. (2) Seizure: Admission and Anticipated Discharge Date Admission Date: April 12, 2020 Subjective Patient seen and examined at bedside. No acute distress. Later last evening patient was agitated even after getting 18 mg of lorazepam and being on Precedex 1.0. Plan to intubate the patient was made for the safety of the patient as well as the medical staff taking care of him. At the time of examination patient was on 1.3 of Precedex and 9 of midazolam On awakening patient follows simple commands. He does get restless on it when he wakes up. Afebrile. No seizure-like activity. Review of Systems Review of Systems: Unobtainable due to endotracheal tube Physical Exam Physical Exam: Constitutional: Intubated HEENT: PERRLA Respiratory system: Good air entry bilaterally, no wheeze, no rhonchi, no crackles CVS: S1-S2 positive, no murmurs or gallops Abdomen: Soft, nontender, nondistended, positive bowel sounds x4 Extremities: +2 pulses bilaterally radialis/ dorsalis pedis, no cyanosis, no edema Neuro: RASS -1, positive pupil, positive gag, positive corneal, moving all extremities on waking up Psych: Unable to assess G/U: No Hubbard Skin: no rashes, warm and dry Lymphatic: no cervical or axillary lymphadenopathy Results & Data Results & Data ([facility]) Vital Signs (Past 12 Hours) Vital Signs Temp Pulse Pulse Resp BP BP Pulse Ox 04/14/20 07:25 62 12 99 04/14/20 06:00 70 12 137/103 H 98 04/14/20 05:50 60 12 99 04/14/20 04:13 62 138/103 H 99 04/14/20 04:00 36.2 C L 60 138/103 H 99 04/14/20 03:13 64 131/104 H 99 04/14/20 02:05 70 12 98 04/14/20 02:00 69 124/97 98 04/14/20 01:13 69 129/101 H 96 04/14/20 01:00 71 129/101 H 94 04/14/20 00:00 73 120/81 99 04/13/20 23:28 74 12 100 04/13/20 23:13 75 125/84 100 04/13/20 23:00 75 100 04/13/20 22:40 36.7 C 75 12 124/82 100 04/13/20 22:00 79 100 04/13/20 21:43 81 118/81 100 04/13/20 21:30 83 100 04/13/20 21:13 85 115/82 100 04/14/20 04:26 04/14/20 04:26 Coding Level of Care Code Critical Care 1st 30-74 mins Diagnoses DTs (delirium tremens) F10.231 Seizure R56.9 Time Spent (min) 36
--- NOTE | 2020-04-14 09:58 | Hospitalist Progress Note ---
Date of Service April 14, 2020 Assessment & Plan (1) DTs (delirium tremens): (2) Seizure: (3) Alcohol withdrawal: Seizure episode, delirium tremens Per admitting service notes Pt is 34 y/o M with PMH ETOH abuse, seizure in 2018 presented to ER with C/O seizure. 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 Co-workers were able to make sure pt did not fall and lower him to the ground. Pt does not remember incident. It is reported pt was post-ictal after event. Upon ER arrival pt is awake, alert, shaky and anxious. Pt reports drinks 8-12 beers daily. Last drink 7pm on 04/11/2020 Reported h/o seizure in 2018 that pt reports was ETOH withdrawal seizure. CT head: No acute process Transferred to ICU, presently intubated, on Precedex and Versed drip Comfortable, no recurrence of seizures Plan to continue mechanical ventilation today, continue Precedex and Versed drip Monitor electrolytes EEG: No evidence for focal or generalized encephalopathy and without evidence for potentially epileptogenic activity Neurologist consulted-appreciate the recommendations Brain MRI pending (4) Alcohol abuse: Patient reiterates interest in joining alcohol rehab program Case management consulted (5) Hypomagnesemia: -Replace and monitor (6) Hypophosphatemia: -Replace and monitor (7) Transaminitis: T Bili: 1.5, AST: 176, ALT: 104, Alk Phos: 72 -Likely secondary to alcoholism -LFTs improving DVT Prophylaxis -SCDs Full Code Pt previously followed with Dr Kaur, however has not seen 10/2018 Plan of care discussed in detail and at length with patient's yesterday All questions were answered she is understanding, stable, comfortable with the plan of care Tried to call patient's again today for update, no answer, voicemail message left to request callback Admission and Anticipated Discharge Date Admission Date: April 12, 2020 Subjective Follow-up for delirium tremens, seizure episode Transferred to ICU for escalating alcohol withdrawal symptoms, mentally intubated, placed on Precedex drips and Versed No acute events overnight, no recurrence of seizures Discussed with RN, no acute issues noted so far Seen and examined at the bedside Patient is intubated, sedated Not in distress, comfortable, breathing with no accessory muscle use or effort No bleeding noted No other symptoms Review of Systems Review of Systems: All systems reviewed & are unremarkable except as noted in HPI & below Physical Exam 2 Physical Exam: General-sedated, intubated, not in distress, accessory muscle use, no effort with breathing Eyes- anicteric Neck- no JVD Lungs- clear breath sounds anteriorly bilaterally Heart- normal rate, regular rhythm; no murmurs Abdomen- normal bowel sounds, nondistended, soft, nontender Extremities- no pretibial edema, no calf tenderness Neuro- sedated Skin- warm & dry Results & Data Results & Data ([facility]) Vital Signs (Past 12 Hours) Vital Signs Temp Pulse Pulse Resp BP BP Pulse Ox 04/14/20 08:55 52 L 145/102 H 99 04/14/20 07:43 62 125/107 H 99 04/14/20 07:25 62 12 99 04/14/20 07:13 62 126/105 H 99 04/14/20 06:00 70 12 137/103 H 98 04/14/20 05:50 60 12 99 04/14/20 04:13 62 138/103 H 99 04/14/20 04:00 36.2 C L 60 138/103 H 99 04/14/20 03:13 64 131/104 H 99 04/14/20 02:05 70 12 98 04/14/20 02:00 69 124/97 98 04/14/20 01:13 69 129/101 H 96 04/14/20 01:00 71 129/101 H 94 04/14/20 00:00 73 120/81 99 04/13/20 23:28 74 12 100 04/13/20 23:13 75 125/84 100 04/13/20 23:00 75 100 04/13/20 22:40 36.7 C 75 12 124/82 100 04/13/20 22:00 79 100 Laboratory Results Laboratory Results - last 24 hr 04/13/20 04/13/20 04/13/20 19:49 19:53 20:01 WBC RBC Hgb Hct MCV MCH MCHC RDW Std Deviation RDW Coeff of Joan Plt Count MPV Immature Gran % (Auto) Neut % (Auto) Lymph % (Auto) [place] % (Auto) Eos % (Auto) Baso % (Auto) Immature Gran # (Auto) Neut # (Auto) Lymph # (Auto) [place] # (Auto) Eos # (Auto) Baso # (Auto) Platelet Estimate Giant Platelets PT INR APTT PTT Ratio Sample Site R Radial POC pH 7.44 POC pCO2 39 POC pO2 > 420 H POC HCO3 27 H POC Total CO2 28 POC Base Excess 2.0 H POC ABG O2 Sat 100.0 H Aj Test Pass O2 Delivery Device Ventilator POC O2 Rate 16 Minute Ventilation 9.1 POC FiO2 100 Tidal Volume 450 PEEP 5 Sodium 139 Potassium 3.2 L D Chloride 104 Carbon Dioxide 24 Anion Gap 11.0 BUN 3 L Creatinine 0.59 L Est Cr Clr Drug Dosing 159.2 Est GFR ( Amer) > 150.0 Est GFR (Non-Af Amer) 132.1 BUN/Creatinine Ratio 4.9 L Glucose 98 POC Glucose Calcium 9.1 Phosphorus 2.6 Magnesium 1.7 L Total Bilirubin AST ALT Alkaline Phosphatase Total Protein Albumin Globulin Albumin/Globulin Ratio Nasal Screen MRSA (PCR) Negative 04/14/20 04/14/20 04/14/20 04:26 04:26 04:26 WBC 4.84 RBC 3.95 L Hgb 12.7 L Hct 38.9 L MCV 98.5 MCH 32.2 MCHC 32.6 RDW Std Deviation 48.1 H RDW Coeff of Joan 13.3 Plt Count 99 L MPV 10.5 H Immature Gran % (Auto) 0.2 Neut % (Auto) 51.5 Lymph % (Auto) 26.2 [place] % (Auto) 12.8 Eos % (Auto) 8.3 Baso % (Auto) 1.0 Immature Gran # (Auto) 0.01 Neut # (Auto) 2.49 Lymph # (Auto) 1.27 [place] # (Auto) 0.62 H Eos # (Auto) 0.40 Baso # (Auto) 0.05 Platelet Estimate Decreased L Giant Platelets 1+ PT 13.3 H INR 1.3 H APTT 26.0 PTT Ratio 0.9 Sample Site POC pH POC pCO2 POC pO2 POC HCO3 POC Total CO2 POC Base Excess POC ABG O2 Sat Aj Test O2 Delivery Device POC O2 Rate Minute Ventilation POC FiO2 Tidal Volume PEEP Sodium 142 Potassium 3.6 Chloride 110 H Carbon Dioxide 25 Anion Gap 7.0 BUN 3 L Creatinine 0.52 L Est Cr Clr Drug Dosing 180.6 Est GFR ( Amer) > 150.0 Est GFR (Non-Af Amer) 139.1 BUN/Creatinine Ratio 5.2 L Glucose 112 H POC Glucose Calcium 8.9 Phosphorus 3.0 Magnesium 2.2 Total Bilirubin 1.2 H AST 84 H ALT 70 Alkaline Phosphatase 53 Total Protein 7.0 Albumin 3.5 Globulin 3.5 Albumin/Globulin Ratio 1.0 Nasal Screen MRSA (PCR) 04/14/20 04/14/20 05:36 12:05 WBC RBC Hgb Hct MCV MCH MCHC RDW Std Deviation RDW Coeff of Joan Plt Count MPV Immature Gran % (Auto) Neut % (Auto) Lymph % (Auto) [place] % (Auto) Eos % (Auto) Baso % (Auto) Immature Gran # (Auto) Neut # (Auto) Lymph # (Auto) [place] # (Auto) Eos # (Auto) Baso # (Auto) Platelet Estimate Giant Platelets PT INR APTT PTT Ratio Sample Site R Radial POC pH 7.37 POC pCO2 44 POC pO2 156 H POC HCO3 25 H POC Total CO2 27 POC Base Excess 0.0 POC ABG O2 Sat 99.0 H Aj Test Pass O2 Delivery Device Ventilator POC O2 Rate 12 Minute Ventilation 5.4 POC FiO2 40 Tidal Volume 450 PEEP 5 Sodium Potassium Chloride Carbon Dioxide Anion Gap BUN Creatinine Est Cr Clr Drug Dosing Est GFR ( Amer) Est GFR (Non-Af Amer) BUN/Creatinine Ratio Glucose POC Glucose 96 Calcium Phosphorus Magnesium Total Bilirubin AST ALT Alkaline Phosphatase Total Protein Albumin Globulin Albumin/Globulin Ratio Nasal Screen MRSA (PCR) (1) Alcohol withdrawal Complication of substance-induced condition: with unspecified complication Qualified Code(s): F10.239 - Alcohol dependence with withdrawal, unspecified
[2020-04-14] MEDS: PANTOprazole 40 MG in SYRINGE 0 ML IV SCH (10:08)
[2020-04-14] MEDS: NICOTINE 21 MG/24 HR TDSY TD SCH (10:11)
[2020-04-14] MEDS: D5W AND 1/2NSS 1,000 ML IV SCH ×2 (10:11→21:06)
[2020-04-14] MEDS ORDERED: GLYCOPYRROLATE 0.2 MG/ML VIAL IV PRN (10:12)
[2020-04-14] MEDS ORDERED: MULTI-VITAMIN INFUSION 10 ML, THIAMINE HCL 100 MG, FOLIC ACID 1 MG in SODIUM CHLORIDE 0... IV SCH (10:30)
[2020-04-14] MEDS: FOLIC ACID 1 MG TAB PO SCH (10:44)
[2020-04-14] MEDS: THIAMINE HCL 100 MG TAB PO SCH (10:45)
[2020-04-14] MEDS: MULTIVITAMIN TAB PO SCH (10:45)
[2020-04-14] MEDS: DEXMEDETOMIDINE HCL 400 MCG in 0.9 % SODIUM CHLORIDE 96 ML IV SCH ×3 (10:52→21:04)
[2020-04-14] MEDS: MIDAZOLAM HCL 125 MG/250 ML BAG IV SCH ×2 (11:01→23:36)
--- NOTE | 2020-04-14 16:17 | Communication Note ---
Date of Service: April 14, 2020 Shortly after I saw Grover last night he developed acute agitation and went into full-blown alcohol withdrawal behavior required high doses of IV Ativan and finally intubation and is now in the unit with expectations that he will soon be extubated and then hopefully awaken to a more normal oriented state. He is interested in alcohol rehab or professed to be before this all went down and hopefully he will maintain this attitude tomorrow if he awakens and gets back to baseline. The MRI has not been done but certainly is not urgent in the setting and no seizure activity has been witnessed so at this point I would simply maintain his current management. Dr. Mena is on our service for the next week. I will make him aware of the case but at this time unless there is a breakthrough seizure or something unexpected on MRI I do not think neurology needs to get involved as this is now becoming clearly a state of alcohol withdrawal and seizures are often a one-time event and do not require ongoing antiepileptic therapy unless they recur and so far with a normal EEG and no recurrence and no think we need to be concerned Obviously if he has more seizure activity then Dr. Mena will need to get involved and he will probably start him on some Shara Bethea MD
[2020-04-14] MEDS: MIDAZOLAM HCL 1 MG/ML 2ML VIAL IV PRN ×5 (19:36→22:47)
[2020-04-14] MEDS ORDERED: MIDAZOLAM HCL 5 MG/ML 1 ML VIAL IV STA (22:38)
[2020-04-15] MEDS ORDERED: GABAPENTIN 600 MG TAB PO SCH
[2020-04-15] MEDS: MIDAZOLAM HCL 1 MG/ML 2ML VIAL IV PRN ×9 (00:34→18:23)
[2020-04-15] MEDS: DEXMEDETOMIDINE HCL 400 MCG in 0.9 % SODIUM CHLORIDE 96 ML IV SCH ×7 (01:41→23:08)
[2020-04-15 04:43] LABS: Basophils # (auto) 0.04 K/uL (0-0.2); Basophils % (auto) 0.7 %; Eosinophils # (auto) 0.58 K/uL (0-0.5); Eosinophils % (auto) 10.6 %; Hematocrit (blood only) 40.9 % (42-52); Hemoglobin 13.4 g/dL (14.0-18.0); Immature Granulocytes # (auto) 0.01 K/uL (0.00-0.02); Immature Granulocytes % (auto) 0.2 %; Lymphocytes # (auto) 0.95 K/uL (1.2-3.4); Lymphocytes % (auto) 17.3 %; Mean Corpuscular Hemoglobin 32.1 pg (25-34); Mean Corpuscular Hgb Conc 32.8 g/dL (32-36); Mean Corpuscular Volume 98.1 fL (80-100); Mean Platelet Volume 11.4 fL (7.4-10.4); Monocytes # (auto) 0.84 K/uL (0.11-0.59); Monocytes % (auto) 15.3 %; Neutrophils # (auto) 3.06 K/uL (1.4-6.5); Neutrophils % (auto) 55.9 %; Platelet Count 115 K/uL (130-400); RDW Standard Deviation 46.4 fL (36.4-46.3); Red Blood Count 4.17 M/uL (4.7-6.1); White Blood Count 5.48 K/uL (4.8-10.8)
[2020-04-15 05:02] LABS: Alanine Aminotransferase 73 U/L (12-78); Albumin Level 3.5 gm/dl (3.4-5.0); Aspartate Aminotransferase 98 U/L (15-37); BUN Creatinine Ratio 4.5 (10-20); Blood Urea Nitrogen 2 mg/dl (7-18); Calcium 9.1 mg/dl (8.5-10.1); Carbon Dioxide 27 mmol/L (21-32); Chloride 110 mmol/L (98-107); Creatinine Clr Calc Pharmacy 177.2 ml/min; Est GFR (African American) > 150.0; Glucose 100 mg/dl (70-99); Magnesium 1.7 mg/dl (1.8-2.4); Potassium 3.4 mmol/L (3.5-5.1); Sodium 143 mmol/L (136-145)
[2020-04-15 05:04] LABS: Alkaline Phosphatase 56 U/L (45-117); Bilirubin,Total 1.1 mg/dl (0.2-1); Globulin 3.5 gm/dl (2.5-4.0); Phosphorus 3.3 mg/dl (2.5-4.9)
[2020-04-15] MEDS ORDERED: MIDAZOLAM HCL 5 MG/ML 1 ML VIAL IV STA ×2 (05:16→05:30)
[2020-04-15] MEDS ORDERED: MIDAZOLAM HCL 5 MG/ML 1 ML VIAL ONE (05:17)
[2020-04-15] MEDS ORDERED: MIDAZOLAM HCL 5 MG/ML VIAL IV STA (05:46)
[2020-04-15] MEDS: MAGNESIUM SULFATE / D5W 1 GM/100 ML BAG IV SCH ×2 (06:30→07:52)
[2020-04-15] MEDS: POTASSIUM CHLORIDE / WTR 10 MEQ/100 ML PLCT IV SCH ×8 (06:30→18:11)
[2020-04-15] MEDS: NICOTINE 21 MG/24 HR TDSY TD SCH (07:48)
--- NOTE | 2020-04-15 08:51 | Critical Care Progress Note ---
Date of Service April 15, 2020 Assessment & Plan (1) DTs (delirium tremens): EKG 04/12/2020: Sinus tachycardia, normal axis, no ST-T wave changes appreciated. --Delirium tremens Status post VDRF secondary to metabolic encephalopathy Self extubated 04/14/2020 Continue with Precedex and benzodiazepine pushes to keep RASS -1 UDS was negative on 04/12/2020, alcohol level less than 3 Patient had one episode of seizure as well at work. --Seizure CT head negative Neurology on board Currently thinking that this is most likely from alcohol withdrawal. They do recommend an MRI of the brain. Patient has similar episode in the past couple of years ago. He has not been on any antiseizure medications Magnesium greater than 2. Replace electrolytes as needed. 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 Monitor --Prophylaxis VTE: IPC's, patient is thrombocytopenic would avoid chemical prophylaxis GI: Protonix Diet: N.p.o. Plan: In/out: -2181, Urine output 5825 Continue with Precedex to keep RASS -1: -2, will give lorazepam [id number] and titrated down gradually as the patient is less delirious. Continue with 1 is to 1 precautions and restraints for the time being. DC banana bag and give patient p.o. medications. I have personally spent 35 minutes of critical care time in the direct m anagement of this patient. This is a life/limb threatening event. This includes time spent evaluating patient, direct bedside care, chart review, placing orders, interpretation of diagnostic studies, discussion with consultants, patient, and family members, as well as other required patient management activities. This time is exclusive of all separately billable procedures, and teaching time and separate from and in addition to any other critical care service time. Please note the above document was generated using voice recognition software. It may contain grammatical, syntax or spelling errors. (2) Seizure: Admission and Anticipated Discharge Date Admission Date: April 12, 2020 Subjective Patient seen and examined at bedside. No acute distress, no adverse events overnight. Later last evening patient self extubated while being on Precedex 1.2 and midazolam 9.5. Patient was saturating well and following commands at that time. I continue with Precedex with midazolam to be given to keep him RASS -1 Patient is answering simple questions. Review of Systems Review of Systems: All systems reviewed & are unremarkable except as noted in HPI & below and Unobtainable due to cognitive status Physical Exam Physical Exam: Constitutional: No acute distress HEENT: PERRLA, EOMI Respiratory system: Good air entry bilaterally, no wheeze, no rhonchi, no crackles CVS: S1-S2 positive, no murmurs or gallops Abdomen: Soft, nontender, nondistended, positive bowel sounds x4 Extremities: +2 pulses bilaterally radialis/ dorsalis pedis, no cyanosis, no edema Neuro: RASS -1, following simple commands on awakening Psych: Sedated G/U: No Hubbard Skin: no rashes, warm and dry Lymphatic: no cervical or axillary lymphadenopathy Results & Data Results & Data ([facility]) Vital Signs (Past 12 Hours) Vital Signs Temp Pulse Resp BP Pulse Ox 04/15/20 08:31 36.4 C L 04/15/20 07:56 80 19 135/95 97 04/15/20 06:56 75 22 140/102 H 98 04/15/20 06:00 72 13 97 04/15/20 05:55 74 18 136/82 97 04/15/20 05:06 79 18 96 04/15/20 04:56 78 14 115/86 98 04/15/20 04:44 78 16 121/80 97 04/15/20 04:00 76 15 97 04/15/20 03:56 36.8 C 76 15 128/90 97 04/15/20 03:00 74 17 96 04/15/20 02:56 73 17 125/88 96 04/15/20 02:45 87 24 120/83 96 04/15/20 02:00 80 18 96 04/15/20 01:55 79 18 120/83 97 04/15/20 01:00 80 16 97 04/15/20 00:56 80 17 111/86 97 04/15/20 00:00 78 16 97 04/14/20 23:56 81 18 119/79 96 04/14/20 23:00 36.7 C 84 23 96 04/14/20 21:56 80 23 132/76 98 04/14/20 20:56 81 21 166/109 H 04/15/20 04:16 04/15/20 04:16 Coding Level of Care Code Critical Care 1st 30-74 mins Diagnoses DTs (delirium tremens) F10.231 Seizure R56.9 Time Spent (min) 35
[2020-04-15] MEDS: D5W AND 1/2NSS 1,000 ML IV SCH ×2 (10:04→20:13)
[2020-04-15 12:35] LABS: BUN Creatinine Ratio 2.3 (10-20); Blood Urea Nitrogen 1 mg/dl (7-18); Calcium 9.5 mg/dl (8.5-10.1); Carbon Dioxide 25 mmol/L (21-32); Chloride 109 mmol/L (98-107); Creatinine Clr Calc Pharmacy 166.9 ml/min; Est GFR (African American) > 150.0; Glucose 106 mg/dl (70-99); Magnesium 2.1 mg/dl (1.8-2.4); Potassium 3.6 mmol/L (3.5-5.1); Sodium 140 mmol/L (136-145)
[2020-04-15] MEDS: LORazepam 2 MG/4 ML VIAL IV SCH ×2 (13:07→16:29)
[2020-04-15] MEDS ORDERED: SODIUM CHLORIDE 0.9% IV STA (13:47)
[2020-04-15] MEDS ORDERED: POTASSIUM ACETATE IV STA (13:47)
[2020-04-15] MEDS: PANTOprazole 40 MG in SYRINGE 0 ML IV SCH (14:30)
[2020-04-15] MEDS ORDERED: RAPID SEQUENCE INDUCTION BAG ONE (18:33)
--- NOTE | 2020-04-15 18:58 | Hospitalist Progress Note ---
Date of Service April 15, 2020 Assessment & Plan (1) DTs (delirium tremens): (2) Seizure: (3) Alcohol withdrawal: Seizure episode, delirium tremens Per admitting service notes Pt is 34 y/o M with PMH ETOH abuse, seizure in 2018 presented to ER with C/O seizure. 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 Co-workers were able to make sure pt did not fall and lower him to the ground. Pt does not remember incident. It is reported pt was post-ictal after event. Upon ER arrival pt is awake, alert, shaky and anxious. Pt reports drinks 8-12 beers daily. Last drink 7pm on 04/11/2020 Reported h/o seizure in 2018 that pt reports was ETOH withdrawal seizure. CT head: No acute process Transferred to ICU, intubated, Self extubated 04/14/2020 Continue with Precedex drip, wean off accordingly No recurrence of seizures EEG: No evidence for focal or generalized encephalopathy and without evidence for potentially epileptogenic activity Neurologist consulted-appreciate the recommendations Brain MRI pending (4) Alcohol abuse: Patient reiterates interest in joining alcohol rehab program Case management consulted (5) Hypomagnesemia: -Replace and monitor (6) Hypophosphatemia: -Replace and monitor (7) Transaminitis: T Bili: 1.5, AST: 176, ALT: 104, Alk Phos: 72 -Likely secondary to alcoholism -LFTs improving DVT Prophylaxis -SCDs Full Code Pt previously followed with Dr Kaur, however has not seen 10/2018 Admission and Anticipated Discharge Date Admission Date: April 12, 2020 Subjective Follow-up for delirium tremens Patient self extubated last night Remains on Precedex drip Patient is awake, drowsy, oriented x2, answers most questions appropriately States he feels fine overall just tired Denies headache, dizziness, chest pain, shortness of breath, abdominal pain, nausea No other symptoms Review of Systems Review of Systems: All systems reviewed & are unremarkable except as noted in HPI & below Physical Exam Physical Exam: General- oriented x 1-2, not in distress, speaks in sentences with no effort or accessory muscle use Drowsy, weak Eyes- anicteric Neck- no JVD Lungs- clear breath sounds bilaterally No wheezing or crackles Heart- normal rate, regular rhythm; no murmurs Abdomen- normal bowel sounds, nondistended, soft, nontender Extremities- no pretibial edema, no calf tenderness Neuro-drowsy, oriented x 1-2, no gross focal neurologic deficits Skin- warm & dry Results & Data Results & Data ([facility]) Vital Signs (Past 12 Hours) Vital Signs Temp Pulse Resp BP Pulse Ox 04/15/20 17:56 80 21 125/89 99 04/15/20 16:56 83 18 128/90 99 04/15/20 15:56 73 18 123/97 04/15/20 14:56 82 18 114/82 98 04/15/20 13:56 71 17 136/98 98 04/15/20 12:56 81 16 130/91 98 04/15/20 11:56 73 20 123/95 99 04/15/20 10:56 71 15 118/94 99 04/15/20 09:56 73 16 118/95 98 04/15/20 08:56 71 15 116/89 97 04/15/20 08:31 36.4 C L 04/15/20 07:56 80 19 135/95 97 04/15/20 06:56 75 22 140/102 H 98 Laboratory Results Laboratory Results - last 24 hr 04/15/20 04/15/20 04/15/20 04:16 04:16 11:32 WBC 5.48 RBC 4.17 L Hgb 13.4 L Hct 40.9 L MCV 98.1 MCH 32.1 MCHC 32.8 RDW Std Deviation 46.4 H RDW Coeff of Joan 13.0 Plt Count 115 L MPV 11.4 H Immature Gran % (Auto) 0.2 Neut % (Auto) 55.9 Lymph % (Auto) 17.3 [place] % (Auto) 15.3 Eos % (Auto) 10.6 Baso % (Auto) 0.7 Immature Gran # (Auto) 0.01 Neut # (Auto) 3.06 Lymph # (Auto) 0.95 L [place] # (Auto) 0.84 H Eos # (Auto) 0.58 H Baso # (Auto) 0.04 Sodium 143 Potassium 3.4 L Chloride 110 H Carbon Dioxide 27 Anion Gap 6.0 BUN 2 L Creatinine 0.53 L Est Cr Clr Drug Dosing 177.2 Est GFR ( Amer) > 150.0 Est GFR (Non-Af Amer) 138.0 BUN/Creatinine Ratio 4.5 L Glucose 100 H POC Glucose 101 H Calcium 9.1 Phosphorus 3.3 Magnesium 1.7 L Total Bilirubin 1.1 H AST 98 H ALT 73 Alkaline Phosphatase 56 Total Protein 7.0 Albumin 3.5 Globulin 3.5 Albumin/Globulin Ratio 1.0 04/15/20 04/15/20 11:47 18:12 WBC RBC Hgb Hct MCV MCH MCHC RDW Std Deviation RDW Coeff of Joan Plt Count MPV Immature Gran % (Auto) Neut % (Auto) Lymph % (Auto) [place] % (Auto) Eos % (Auto) Baso % (Auto) Immature Gran # (Auto) Neut # (Auto) Lymph # (Auto) [place] # (Auto) Eos # (Auto) Baso # (Auto) Sodium 140 Potassium 3.6 Chloride 109 H Carbon Dioxide 25 Anion Gap 7.0 BUN 1 L Creatinine 0.56 L Est Cr Clr Drug Dosing 166.9 Est GFR ( Amer) > 150.0 Est GFR (Non-Af Amer) 135.0 BUN/Creatinine Ratio 2.3 L Glucose 106 H POC Glucose 107 H Calcium 9.5 Phosphorus Magnesium 2.1 Total Bilirubin AST ALT Alkaline Phosphatase Total Protein Albumin Globulin Albumin/Globulin Ratio (1) Alcohol withdrawal Complication of substance-induced condition: with unspecified complication Qualified Code(s): F10.239 - Alcohol dependence with withdrawal, unspecified
[2020-04-15] MEDS ORDERED: STAT IV Infusion **Titration per Protocol STA (19:04)
[2020-04-15] MEDS ORDERED: MIDAZOLAM BOLUS FROM BAG IV PRN (19:04)
[2020-04-15] MEDS ORDERED: PROPOFOL BOLUS FROM BAG IV PRN (19:04)
--- NOTE | 2020-04-15 19:08 | Procedure Note ---
Procedure Note Date of Service April 15, 2020 INTUBATION PROCEDURE NOTE: Attending: Dr Hadley Corado MD Patient was evaluated and plan to intubate was made for delirium and agitation. Sedative agent used: Etomidate 20 mg, lidocaine 100 mg Paralysis agent used: Rocuronium 40 mg Emergent consent was implied given patients rapidly declining clinical status and need for airway protection. The patient was prepared in the appropriate fashion. The patient was easily pre-oxygenated by using [id number] ventilation. With help of CMAC grade 1 vocal cords were visualized and 7.5 [place] ETT was introduced on first attempt to 24 cm at the lip. The stylette was removed and balloon was inflated with 10mL of air. Appropriate Colorimetric change was appreciated for at least 10 breaths. Bilateral chest rise and breath sounds were appreciated without air sounds in the epigastrium. Patient tolerated the procedure well and there were no immediate complications. Chest Xray to follow for confirming placement. Coding CPT Codes Resuscitation - Resuscitation: 80433 Endotracheal Intubation, emergency ([id number]) [facility] [place] Procedure Codes (Charges) Resuscitation Resuscitation: 45028 Endotracheal Intubation, emergency
--- NOTE | 2020-04-15 19:34 | XRay Report ---
SINGLE VIEW CHEST CLINICAL HISTORY: Respiratory failure. Intubation. FINDINGS: An AP, portable, supine chest radiograph is compared to study dated 04/13/2020. The examinat ion is degraded by portable technique and patient rotation. The tip of the endotracheal tube projects 4.5 cm above the ruby The cardiomediastinal silhouette is unremarkable. The lungs and pleural spac es are clear. No pneumothorax is seen. The bony thorax is grossly intact. IMPRESSION: 1. The tip of the endotracheal tube projects 4.5 cm above the ruby. 2. There is no airspace consolidation or pleural effusion. ACT 112: Negative or not required by law. Electronically signed by: Nolan Tejeda M.D. 04/15/2020 7:33 PM
[2020-04-15] MEDS ORDERED: ETOMIDATE 2 MG/ML 20 ML VIAL IV ONE (19:39)
[2020-04-15] MEDS ORDERED: ROCURONIUM BROMIDE 10 MG/ML 5 ML VIAL IV ONE (19:39)
[2020-04-15] MEDS ORDERED: LIDOCAINE 2% 20 MG/ML 5 ML SYR IV ONE (19:39)
[2020-04-15] MEDS: MIDAZOLAM HCL 125 MG/250 ML BAG IV SCH (19:41)
[2020-04-15] MEDS: propofoL 1,000 MG/100 ML VIAL IV SCH (19:42)
[2020-04-16] MEDS: DEXMEDETOMIDINE HCL 400 MCG in 0.9 % SODIUM CHLORIDE 96 ML IV SCH ×4 (03:14→21:09)
[2020-04-16 04:43] LABS: Basophils # (auto) 0.04 K/uL (0-0.2); Basophils % (auto) 0.8 %; Eosinophils # (auto) 0.45 K/uL (0-0.5); Hematocrit (blood only) 39.1 % (42-52); Hemoglobin 12.8 g/dL (14.0-18.0); Immature Granulocytes # (auto) 0.02 K/uL (0.00-0.02); Immature Granulocytes % (auto) 0.4 %; Lymphocytes # (auto) 1.43 K/uL (1.2-3.4); Lymphocytes % (auto) 28.5 %; Mean Corpuscular Hemoglobin 32.2 pg (25-34); Mean Corpuscular Hgb Conc 32.7 g/dL (32-36); Mean Corpuscular Volume 98.2 fL (80-100); Mean Platelet Volume 11.1 fL (7.4-10.4); Monocytes # (auto) 1.01 K/uL (0.11-0.59); Monocytes % (auto) 20.2 %; Neutrophils # (auto) 2.06 K/uL (1.4-6.5); Neutrophils % (auto) 41.1 %; Platelet Count 124 K/uL (130-400); RDW Coefficient of Variation 12.9 % (11.5-14.5); RDW Standard Deviation 46.4 fL (36.4-46.3); Red Blood Count 3.98 M/uL (4.7-6.1); White Blood Count 5.01 K/uL (4.8-10.8)
[2020-04-16 05:08] LABS: Albumin Level 3.3 gm/dl (3.4-5.0); BUN Creatinine Ratio 2.3 (10-20); Calcium 8.9 mg/dl (8.5-10.1); Creatinine Clr Calc Pharmacy 138.1 ml/min; Est GFR (African American) 144.4; Est GFR (Non-African American) 124.6; Magnesium 1.8 mg/dl (1.8-2.4); Potassium 3.1 mmol/L (3.5-5.1)
[2020-04-16] MEDS: propofoL 1,000 MG/100 ML VIAL IV SCH ×2 (05:11→23:00)
[2020-04-16 05:13] LABS: Bilirubin,Total 0.8 mg/dl (0.2-1); Globulin 3.3 gm/dl (2.5-4.0); Phosphorus 3.5 mg/dl (2.5-4.9); Total Protein 6.6 gm/dl (6.4-8.2)
[2020-04-16] MEDS: D5W AND 1/2NSS 1,000 ML IV SCH ×2 (05:13→14:28)
[2020-04-16 05:23] LABS: iSTAT Allen Test Pass; iSTAT Arterial Blood Gas HCO3 20 meg/L (19-24); iSTAT Arterial Blood Gas pCO2 27 mmHg (35-46); iSTAT Arterial Blood Gas pH 7.48 (7.35-7.45); iSTAT Arterial Blood Gas pO2 84 mmHg (80-95); iSTAT Carbon Dioxide 21 mmol/L (24-31); iSTAT FiO2 30 %; iSTAT Site R Radial
[2020-04-16] MEDS: POTASSIUM CHLORIDE / WTR 10 MEQ/100 ML PLCT IV SCH ×4 (05:47→08:57)
[2020-04-16] MEDS: MULTIVITAMIN TAB PO SCH (07:56)
[2020-04-16] MEDS: FOLIC ACID 1 MG TAB PO SCH (07:56)
[2020-04-16] MEDS: THIAMINE HCL 100 MG TAB PO SCH (07:56)
[2020-04-16] MEDS: NICOTINE 21 MG/24 HR TDSY TD SCH (07:56)
--- NOTE | 2020-04-16 09:07 | Critical Care Progress Note ---
Date of Service April 16, 2020 Assessment & Plan (1) DTs (delirium tremens): EKG 04/12/2020: Sinus tachycardia, normal axis, no ST-T wave changes appreciated. -- VDRF secondary to metabolic encephalopathy Secondary to DTs Self extubated 04/14/2020, reintubated 04/15/2020 Continue with propofol, Precedex and benzodiazepine pushes to keep RASS -1 Continue with ventilatory support Keep RASS -1 Chlorhexidine mouthwash UDS was negative on 04/12/2020, alcohol level less than 3 Patient had one episode of seizure as well at work. --Seizure CT head negative Neurology on board Currently thinking that this is most likely from alcohol withdrawal. They do recommend an MRI of the brain. Patient has similar episode in the past couple of years ago. He has not been on any antiseizure medications Magnesium greater than 2. Replace electrolytes as needed. 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 Improving, Monitor --Prophylaxis VTE: IPC's, patient is thrombocytopenic would avoid chemical prophylaxis GI: Protonix Diet: N.p.o. Lines: Peripheral, self extubated 04/14/2020, reintubated 04/15/2020 --Hypokalemia Being replaced Plan: In/out: +818, Urine output 3775 mL Continue with sedatives. Try to titrate down Precedex as much as possible any when turning off. Continue with propofol and midazolam. Continue keeping patient RASS -1: -2. Start NGT feedings. Replace potassium and magnesium. I have personally spent 36 minutes of critical care time in the direct management of this patient. This is a life/limb threatening event. This includes time spent evaluating patient, direct bedside care, chart review, placing orders, interpretation of diagnostic studies, discussion with consultants, patient, and family members, as well as other required patient management activities. This time is exclusive of all separately billable procedures, and teaching time and separate from and in addition to any other critical care service time. Please note the above document was generated using voice recognition software. It may contain grammatical, syntax or spelling errors. (2) Seizure: Admission and Anticipated Discharge Date Admission Date: April 12, 2020 Subjective Patient seen and examined at bedside. No acute distress. Later late last evening patient got really agitated and was at risk to harm himself as well as the caretakers around him. Patient was reintubated. Patient has been afebrile. On Precedex 1.5, propofol 20, midazolam 6 at the time of examination. Review of Systems Review of Systems: Unobtainable due to cognitive status and Unobtainable due to endotracheal tube Physical Exam Physical Exam: Constitutional: Intubated HEENT: PERRLA, EOMI Respiratory system: Good air entry bilaterally, no wheeze, no rhonchi, no crackles CVS: S1-S2 positive, no murmurs or gallops Abdomen: Soft, nontender, nondistended, positive bowel sounds x4 Extremities: +2 pulses bilaterally radialis/ dorsalis pedis, no cyanosis, no e radha Neuro: RASS -2, positive gag, positive pupillary, positive corneal Psych: Sedated G/U: + Hubbard (patient had Hubbard even on 04/15/2020, this is a correction from my note on 04/15/2020) Skin: no rashes, warm and dry Lymphatic: no cervical or axillary lymphadenopathy Results & Data Results & Data ([facility]) Vital Signs (Past 12 Hours) Vital Signs Temp Pulse Resp BP Pulse Ox 04/16/20 08:15 76 79/50 L 100 04/16/20 08:00 79 99 04/16/20 07:39 80 16 99 04/16/20 07:14 79 116/72 99 04/16/20 07:00 80 99 04/16/20 05:08 16 04/16/20 04:58 80 20 99 04/16/20 04:07 37.0 C 04/16/20 04:00 82 99 04/16/20 03:50 82 99 04/16/20 03:44 82 122/76 99 04/16/20 03:40 82 99 04/16/20 03:30 82 99 04/16/20 03:20 83 99 04/16/20 03:14 82 121/79 99 04/16/20 03:10 81 99 04/16/20 03:00 83 99 04/16/20 02:50 83 99 04/16/20 02:44 83 123/77 99 06/20/20 02:40 83 99 06/20/20 02:30 83 99 06/20/20 02:20 84 99 06/20/20 02:14 85 122/73 98 06/20/20 02:10 84 98 06/20/20 02:00 83 98 06/20/20 01:50 83 98 06/20/20 01:44 84 116/76 98 06/20/20 01:40 83 98 06/20/20 01:30 84 20 98 06/20/20 01:20 84 98 06/20/20 01:14 84 124/74 98 06/20/20 01:10 84 98 06/20/20 01:00 84 97 06/20/20 00:50 84 97 06/20/20 00:44 83 122/78 97 06/20/20 00:40 82 99 06/20/20 00:30 82 100 06/20/20 00:20 83 100 06/20/20 00:14 83 125/79 100 06/20/20 00:10 83 100 06/20/20 00:00 37.4 C 83 100 06/19/20 23:50 84 100 06/19/20 23:44 84 120/74 100 06/19/20 23:40 84 100 06/19/20 23:30 83 100 06/19/20 23:20 82 100 06/19/20 23:14 82 129/81 100 06/19/20 23:10 82 100 06/19/20 23:00 83 100 06/19/20 22:50 82 100 06/19/20 22:44 82 130/82 100 06/19/20 22:40 81 100 06/19/20 22:34 81 20 100 06/19/20 22:30 82 100 06/19/20 22:20 81 100 06/19/20 22:14 81 131/83 100 06/19/20 22:10 81 100 06/19/20 22:00 80 100 06/19/20 21:50 80 100 06/19/20 21:44 80 133/85 100 06/19/20 21:40 79 100 06/19/20 21:30 80 100 06/19/20 21:20 79 100 06/19/20 21:14 79 126/92 100 06/19/20 21:10 79 100 06/20/20 04:28 06/20/20 04:28 Coding Level of Care Code Critical Care 1st 30-74 mins Diagnoses DTs (delirium tremens) F10.231 Seizure R56.9 Time Spent (min) 36
[2020-04-16] MEDS ORDERED: Nursing to Pharmacy Communication STA (09:11)
[2020-04-16] MEDS: MAGNESIUM SULFATE / D5W 1 GM/100 ML BAG IV SCH ×2 (09:36→10:40)
--- NOTE | 2020-04-16 10:49 | Hospitalist Progress Note ---
Date of Service April 16, 2020 Assessment & Plan (1) DTs (delirium tremens): (2) Seizure: (3) Alcohol withdrawal: Seizure episode, delirium tremens Per admitting service notes Pt is 34 y/o M with PMH ETOH abuse, seizure in 2018 presented to ER with C/O seizure. 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 Co-workers were able to make sure pt did not fall and lower him to the ground. Pt does not remember incident. It is reported pt was post-ictal after event. Upon ER arrival pt is awake, alert, shaky and anxious. Pt reports drinks 8-12 beers daily. Last drink 7pm on 04/11/2020 Reported h/o seizure in 2018 that pt reports was ETOH withdrawal seizure. CT head: No acute process Transferred to ICU, intubated, Self extubated 04/14/2020 Reintubated 12/16/2019 Continue with Precedex drip,, Versed and propofol, wean off accordingly No recurrence of seizures EEG: No evidence for focal or generalized encephalopathy and without evidence for potentially epileptogenic activity Neurologist consulted-appreciate the recommendations Brain MRI pending (4) Alcohol abuse: Patient reiterates interest in joining alcohol rehab program Case management consulted (5) Hypomagnesemia: -Replace and monitor (6) Hypophosphatemia: -Replace and monitor (7) Transaminitis: T Bili: 1.5, AST: 176, ALT: 104, Alk Phos: 72 -Likely secondary to alcoholism -LFTs improving DVT Prophylaxis -SCDs Full Code Pt previously followed with Dr Kaur, however has not seen 10/2018 Admission and Anticipated Discharge Date Admission Date: April 12, 2020 Subjective Follow-up for delirium tremens Status post reintubation overnight Seen resting in bed, sedated with Precedex, Versed, propofol Comfortable, not in respiratory distress, no signs of pain No other issues noted Review of Systems Review of Systems: All systems reviewed & are unremarkable except as noted in HPI & below Physical Exam Physical Exam: General-sedated, breathing with no effort or accessory muscle use Intubated Eyes- anicteric Neck- no JVD Lungs- clear breath sounds, no rales or wheezing bilaterally Heart- normal rate, regular rhythm; no murmurs Abdomen- normal bowel sounds, nondistended, soft, nontender Extremities- no pretibial edema, no calf tenderness Neuro-sedated Skin- warm & dry Results & Data Results & Data ([facility]) Vital Signs (Past 12 Hours) Vital Signs Temp Pulse Resp BP Pulse Ox 04/16/20 08:15 76 79/50 L 100 20 08:00 79 99 20 07:39 80 16 99 2020 07:14 79 116/72 99 20 07:00 80 99 20 05:08 16 04/16/20 04:58 80 20 99 20 04:07 37.0 C 04/16/20 04:00 82 99 2020 03:50 82 99 20 03:44 82 122/76 99 20 03:40 82 99 20 03:30 82 99 20 03:20 83 99 20 03:14 82 121/79 99 20 03:10 81 99 20 03:00 83 99 20 02:50 83 99 2020 02:44 83 123/77 99 20/20 02:40 83 99 20/20 02:30 83 99 20/20 02:20 84 99 2020 02:14 85 122/73 98 20/20 02:10 84 98 20/20 02:00 83 98 2020 01:50 83 98 20/20 01:44 84 116/76 98 20/20 01:40 83 98 20/20 01:30 84 20 98 06/20/20 01:20 84 98 06/20/20 01:14 84 124/74 98 06/20/20 01:10 84 98 06/20/20 01:00 84 97 20/20 00:50 84 97 0620/20 00:44 83 122/78 97 20/20 00:40 82 99 0620/20 00:30 82 100 20/20 00:20 83 100 0620/20 00:14 83 125/79 100 0620/20 00:10 83 100 062020 00:00 37.4 C 83 100 20 23:50 84 100 06/20 23:44 84 120/74 100 04/15/20 23:40 84 100 04/15/20 23:30 83 100 04/15/20 23:20 82 100 04/15/20 23:14 82 129/81 100 04/15/20 23:10 82 100 04/15/20 23:00 83 100 04/15/20 22:50 82 100 Laboratory Results Laboratory Results - last 24 hr 04/16/20 04/16/20 04/16/20 00:19 04:28 04:28 WBC 5.01 RBC 3.98 L Hgb 12.8 L Hct 39.1 L MCV 98.2 MCH 32.2 MCHC 32.7 RDW Std Deviation 46.4 H RDW Coeff of Joan 12.9 Plt Count 124 L MPV 11.1 H Immature Gran % (Auto) 0.4 Neut % (Auto) 41.1 Lymph % (Auto) 28.5 [place] % (Auto) 20.2 Eos % (Auto) 9.0 Baso % (Auto) 0.8 Immature Gran # (Auto) 0.02 Neut # (Auto) 2.06 Lymph # (Auto) 1.43 Jack # (Auto) 1.01 H Eos # (Auto) 0.45 Baso # (Auto) 0.04 Sample Site POC pH POC pCO2 POC pO2 POC HCO3 POC Total CO2 POC Base Excess POC ABG O2 Sat Aj Test O2 Delivery Device POC O2 Rate Minute Ventilation POC FiO2 Tidal Volume PEEP Sodium 142 Potassium 3.1 L Chloride 111 H Carbon Dioxide 23 Anion Gap 8.0 BUN 2 L Creatinine 0.68 Est Cr Clr Drug Dosing 138.1 Est GFR ( Amer) 144.4 Est GFR (Non-Af Amer) 124.6 BUN/Creatinine Ratio 2.3 L Glucose 127 H POC Glucose 122 H Calcium 8.9 Phosphorus 3.5 Magnesium 1.8 Total Bilirubin 0.8 AST 101 H ALT 74 Alkaline Phosphatase 50 Total Protein 6.6 Albumin 3.3 L Globulin 3.3 Albumin/Globulin Ratio 1.0 04/16/20 04/16/20 04/16/20 05:08 06:03 11:34 WBC RBC Hgb Hct MCV MCH MCHC RDW Std Deviation RDW Coeff of Joan Plt Count MPV Immature Gran % (Auto) Neut % (Auto) Lymph % (Auto) [place] % (Auto) Eos % (Auto) Baso % (Auto) Immature Gran # (Auto) Neut # (Auto) Lymph # (Auto) [place] # (Auto) Eos # (Auto) Baso # (Auto) Sample Site R Radial POC pH 7.48 H POC pCO2 27 L POC pO2 84 POC HCO3 20 POC Total CO2 21 L POC Base Excess -3.0 POC ABG O2 Sat 97.0 H Aj Test Pass O2 Delivery Device Ventilator POC O2 Rate 20 Minute Ventilation 9.0 POC FiO2 30 Tidal Volume 450 PEEP 5 Sodium 139 Potassium 4.1 D Chloride 112 H Carbon Dioxide 21 Anion Gap 6.0 BUN 2 L Creatinine 0.96 Est Cr Clr Drug Dosing 97.8 Est GFR ( Amer) 119.0 Est GFR (Non-Af Amer) 102.7 BUN/Creatinine Ratio 2.4 L Glucose 114 H POC Glucose 119 H Calcium 9.1 Phosphorus Magnesium 2.6 H Total Bilirubin AST ALT Alkaline Phosphatase Total Protein Albumin Globulin Albumin/Globulin Ratio 04/16/20 18:21 WBC RBC Hgb Hct MCV MCH MCHC RDW Std Deviation RDW Coeff of Joan Plt Count MPV Immature Gran % (Auto) Neut % (Auto) Lymph % (Auto) [place] % (Auto) Eos % (Auto) Baso % (Auto) Immature Gran # (Auto) Neut # (Auto) Lymph # (Auto) Jack # (Auto) Eos # (Auto) Baso # (Auto) Sample Site POC pH POC pCO2 POC pO2 POC HCO3 POC Total CO2 POC Base Excess POC ABG O2 Sat Aj Test O2 Delivery Device POC O2 Rate Minute Ventilation POC FiO2 Tidal Volume PEEP Sodium Potassium Chloride Carbon Dioxide Anion Gap BUN Creatinine Est Cr Clr Drug Dosing Est GFR ( Amer) Est GFR (Non-Af Amer) BUN/Creatinine Ratio Glucose POC Glucose 101 H Calcium Phosphorus Magnesium Total Bilirubin AST ALT Alkaline Phosphatase Total Protein Albumin Globulin Albumin/Globulin Ratio (1) Alcohol withdrawal Complication of substance-induced condition: with unspecified complication Qualified Code(s): F10.239 - Alcohol dependence with withdrawal, unspecified
[2020-04-16] MEDS: PANTOprazole 40 MG in SYRINGE 0 ML IV SCH (10:55)
[2020-04-16] MEDS ORDERED: fentaNYL citrate 100 MCG/2 ML VIAL ONE (11:18)
[2020-04-16] MEDS ORDERED: Nursing to Pharmacy Communication SCH ×2 (11:30→17:45)
[2020-04-16] MEDS ORDERED: GABAPENTIN 600 MG TAB PO SCH (12:00)
[2020-04-16 12:07] LABS: BUN Creatinine Ratio 2.4 (10-20); Calcium 9.1 mg/dl (8.5-10.1); Creatinine Clr Calc Pharmacy 97.8 ml/min; Est GFR (Non-African American) 102.7; Magnesium 2.6 mg/dl (1.8-2.4); Potassium 4.1 mmol/L (3.5-5.1)
[2020-04-16] MEDS: MIDAZOLAM HCL 125 MG/250 ML BAG IV SCH (12:50)
[2020-04-17] MEDS: D5W AND 1/2NSS 1,000 ML IV SCH ×3 (00:48→20:32)
[2020-04-17] MEDS: MIDAZOLAM HCL 125 MG/250 ML BAG IV SCH ×3 (03:33→23:40)
[2020-04-17] MEDS: propofoL 1,000 MG/100 ML VIAL IV SCH ×5 (04:51→23:40)
[2020-04-17 04:58] LABS: Basophils # (auto) 0.05 K/uL (0-0.2); Basophils % (auto) 0.6 %; Eosinophils # (auto) 0.31 K/uL (0-0.5); Eosinophils % (auto) 3.6 %; Hematocrit (blood only) 40.5 % (42-52); Hemoglobin 13.2 g/dL (14.0-18.0); Immature Granulocytes # (auto) 0.02 K/uL (0.00-0.02); Immature Granulocytes % (auto) 0.2 %; Lymphocytes # (auto) 0.72 K/uL (1.2-3.4); Lymphocytes % (auto) 8.4 %; Mean Corpuscular Hemoglobin 32.3 pg (25-34); Mean Corpuscular Hgb Conc 32.6 g/dL (32-36); Mean Platelet Volume 10.9 fL (7.4-10.4); Monocytes # (auto) 1.93 K/uL (0.11-0.59); Monocytes % (auto) 22.6 %; Neutrophils % (auto) 64.6 %; Platelet Count 139 K/uL (130-400); RDW Coefficient of Variation 13.1 % (11.5-14.5); RDW Standard Deviation 47.2 fL (36.4-46.3); Red Blood Count 4.09 M/uL (4.7-6.1); White Blood Count 8.53 K/uL (4.8-10.8)
[2020-04-17] MEDS: fentaNYL citrate 100 MCG/2 ML VIAL IV PRN (05:11)
[2020-04-17 05:21] LABS: Alanine Aminotransferase 68 U/L (12-78); Albumin Globulin Ratio 0.9 (0.9-2); Albumin Level 3.3 gm/dl (3.4-5.0); Alkaline Phosphatase 54 U/L (45-117); Aspartate Aminotransferase 69 U/L (15-37); BUN Creatinine Ratio 3.8 (10-20); Bilirubin,Total 0.8 mg/dl (0.2-1); Blood Urea Nitrogen 2 mg/dl (7-18); Carbon Dioxide 22 mmol/L (21-32); Chloride 114 mmol/L (98-107); Creatinine Clr Calc Pharmacy 163.8 ml/min; Est GFR (African American) > 150.0; Globulin 3.6 gm/dl (2.5-4.0); Glucose 110 mg/dl (70-99); Phosphorus 4.2 mg/dl (2.5-4.9); Potassium 3.6 mmol/L (3.5-5.1); Sodium 144 mmol/L (136-145); Total Protein 6.9 gm/dl (6.4-8.2)
[2020-04-17 05:51] LABS: iSTAT Arterial Blood Gas HCO3 20 meg/L (19-24); iSTAT Arterial Blood Gas pCO2 34 mmHg (35-46); iSTAT Arterial Blood Gas pH 7.37 (7.35-7.45); iSTAT Arterial Blood Gas pO2 54 mmHg (80-95); iSTAT Carbon Dioxide 21 mmol/L (24-31); iSTAT FiO2 30 %; iSTAT Site R Brachial
[2020-04-17] MEDS: POTASSIUM CHLORIDE / WTR 10 MEQ/100 ML PLCT IV SCH ×3 (08:09→10:09)
[2020-04-17] MEDS: NICOTINE 21 MG/24 HR TDSY TD SCH (08:10)
[2020-04-17] MEDS: THIAMINE HCL 100 MG TAB PO SCH (08:10)
[2020-04-17] MEDS: MULTIVITAMIN TAB PO SCH (08:10)
[2020-04-17] MEDS: FOLIC ACID 1 MG TAB PO SCH (08:10)
[2020-04-17] MEDS ORDERED: Nursing to Pharmacy Communication SCH (09:30)
[2020-04-17] MEDS ORDERED: ACETAMINOPHEN SOLN 650 MG/20.3 ML UDC ONE (09:50)
[2020-04-17] MEDS ORDERED: MAGNESIUM SULFATE / D5W 1 GM/100 ML BAG IV ONE (09:58)
--- NOTE | 2020-04-17 10:21 | Critical Care Progress Note ---
Date of Service April 17, 2020 Assessment & Plan (1) DTs (delirium tremens): 34-year-old male with past medical history of alcohol abuse were admitted because of alcohol withdrawal, patient went into DTs and was upgraded to the ICU. -- VDRF secondary to metabolic encephalopathy Secondary to DTs Self extubated 04/14/2020, reintubated 04/15/2020 Continue with propofol, Precedex and benzodiazepine pushes to keep RASS -1 Continue with ventilatory support Keep RASS -1 Chlorhexidine mouthwash UDS was negative on 04/12/2020, alcohol level less than 3 Patient had one episode of seizure as well at work. -- New onset fever Septic work-up ordered We will give a dose of antibiotic and follow-up septic work-up Chest x-ray does not show any infiltrate as of 04/17/2020 ESR: 8, CRP 1.67, procalcitonin 0.12, UA is negative for bacteria and nitrates. --Seizure CT head negative Neurology on board Currently thinking that this is most likely from alcohol withdrawal. They do recommend an MRI of the brain. Patient has similar episode in the past couple of years ago. He has not been on any antiseizure medications Magnesium greater than 2. Replace electrolytes as needed. --Transaminitis Likely secondary to history of alcohol abuse AST, ALT trending down T bili 1.2, there is a component of indirect bili as well Monitor --Status post thrombocytopenia Likely secondary to Bone marrow toxicity of alcohol Monitor for any signs of bleeding. Improving, Monitor --Prophylaxis VTE: Heparin given the patient is no more thrombocytopenic GI: Protonix Diet: We will start the patient on tube feeds Lines: Peripheral, right arm picc, self extubated 04/14/2020, reintubated 04/15/2020 Plan: In/out: -539 urine output 3600 mL Patient is spiking fever. ESR, CRP, procalcitonin not elevated. Chest x-ray looks clean. Will give antibiotics for the time until we have more septic work- up back. Patient had poor peripheral access right arm PICC line has been placed. Patient still needs a lot of sedation. We will continue with midazolam and propofol to keep RASS -1: -2 I have personally spent 35 minutes of critical care time in the direct management of this patient. This is a life/limb threatening event. This includes time spent evaluating patient, direct bedside care, chart review, placing orders, interpretation of diagnostic studies, discussion with consultants, patient, and family members, as well as other required patient management activities. This time is exclusive of all separately billable procedures, and teaching time and separate from and in addition to any other critical care service time. Please note the above document was generated using voice recognition software. It may contain grammatical, syntax or spelling errors. (2) Seizure: Admission and Anticipated Discharge Date Admission Date: April 12, 2020 Subjective Patient seen and examined at bedside. No acute distress, no adverse events overnight. Patient was on Precedex 0.3, propofol 50, midazolam 12 at the time of examination. There has been issues with his IV access. Plan is to get ultrasound-guided line placed. Patient spiked a fever of 39.4. Physical Exam Physical Exam: Constitutional: Intubated HEENT: PERRLA, EOMI Respiratory system: Good air entry bilaterally, no wheeze, no rhonchi, no crackles CVS: S1-S2 positive, no murmurs or gallops Abdomen: Soft, nontender, nondistended, positive bowel sounds x4 Extremities: +2 pulses bilaterally radialis/ dorsalis pedis, no cyanosis, no edema Neuro: RASS -2, positive gag, positive pupillary, positive corneal Psych: Sedated G/U: + Hubbard (patient had Hubbard even on 04/15/2020, this is a correction from my note on 04/15/2020) Skin: no rashes, warm and dry Lymphatic: no cervical or axillary lymphadenopathy Results & Data Results & Data ([facility]) Vital Signs (Past 12 Hours) Vital Signs Temp Pulse Resp BP Pulse Ox 04/17/20 07:30 100 H 23 99 04/17/20 05:37 85 18 99 04/17/20 05:10 37.9 C H 103 H 92 04/17/20 05:00 105 H 91 04/17/20 04:50 106 H 91 04/17/20 04:45 106 H 114/79 93 04/17/20 04:40 107 H 90 04/17/20 04:30 108 H 91 04/17/20 04:29 108 H 115/72 87 L 04/17/20 04:20 118 H 92 04/17/20 04:15 104 H 151/79 H 99 06/21/20 04:10 94 H 99 0620 04:00 92 H 99 0620 03:50 91 H 99 0620 03:45 90 129/81 99 0620 03:40 88 99 0620 03:30 88 98 0620 03:20 86 99 0620 03:15 86 128/88 98 0620 03:10 86 99 06 03:00 85 98 04/17/20 02:50 87 98 0620 02:45 85 102/61 99 20 02:40 85 99 20 02:30 86 98 04/17/20 02:20 85 98 04/17/20 02:15 85 108/71 99 04/17/20 02:10 86 99 04/17/20 02:01 86 98 04/17/20 02:00 85 128/85 99 04/17/20 01:41 95 H 18 99 04/17/20 01:30 89 98 04/17/20 01:20 82 97 0620 01:15 87 124/86 97 20 01:10 83 96 20 01:00 83 100 20 00:50 88 100 20 00:45 93 H 130/93 98 20 00:40 85 100 0620 00:30 81 100 0620 00:20 80 100 0620 00:15 82 122/88 100 20 00:10 86 99 20 00:00 36.6 C 80 100 062020 23:50 84 34 H 100 0620/20 23:45 87 115/86 98 0620/20 23:40 92 H 99 0620/20 23:30 84 99 0620/20 23:20 80 99 0620/20 23:15 80 123/95 99 0620/20 23:10 80 99 0620/20 23:00 81 98 062020 22:50 82 100 0620/20 22:45 84 117/93 100 062020 22:40 78 100 062020 22:30 73 100 06/21/20 04:36 06/20 04:36 Coding Level of Care Code Critical Care 1st 30-74 mins Diagnoses DTs (delirium tremens) F10.231 Seizure R56.9 Time Spent (min) 35
[2020-04-17 10:32] LABS: Appearance Urine Cloudy (Clear); Bacteria Urine Automated Negative (Negative); Blood Urine 3+ (Negative); Color Urine Dark Yellow; Glucose Urine UA Negative (Negative); Ketones Urine Negative (Negative); Leukocyte Esterase Urine 2+ (Negative); Nitrite Urine Negative (Negative); Protein Urine Trace (Negative); RBC Urine Automated >30 /hpf (0-4); Urobilinogen Urine Negative (Negative)
[2020-04-17 10:42] LABS: Bilirubin Urine 1+ (Negative)
[2020-04-17 10:44] LABS: Ictotest Urine Positive (Negative)
--- NOTE | 2020-04-17 11:42 | XRay Report ---
SINGLE VIEW CHEST CLINICAL HISTORY: Respiratory failure. FINDINGS: An AP, portable, supine chest radiograph is compared to study dated 04/15/2020. The examinat ion is degraded by portable technique and patient rotation. An endotracheal tube is unchanged in posi tion. An enteric tube has been placed. This projects below the diaphragm. A right PICC line has been placed. The tip projects over the cavoatrial junction. The cardiomediastinal silhouette is unremarkab le. The lungs and pleural spaces are clear. No pneumothorax is seen. The bony thorax is grossly intac t. IMPRESSION: 1. Lines and tubes as above. 2. There is no airspace consolidation or pleural effusion. ACT 112: Negative or not required by law. Electronically signed by: Nolan Tejeda M.D. 04/17/2020 11:41 AM
[2020-04-17] MEDS: PANTOprazole 40 MG in SYRINGE 0 ML IV SCH (12:25)
--- NOTE | 2020-04-17 13:51 | Hospitalist Progress Note ---
Date of Service April 17, 2020 Assessment & Plan (1) DTs (delirium tremens): (2) Seizure: (3) Alcohol withdrawal: Seizure episode, delirium tremens Per admitting service notes Pt is 34 y/o M with PMH ETOH abuse, seizure in 2018 presented to ER with C/O seizure. 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 Co-workers were able to make sure pt did not fall and lower him to the ground. Pt does not remember incident. It is reported pt was post-ictal after event. Upon ER arrival pt is awake, alert, shaky and anxious. Pt reports drinks 8-12 beers daily. Last drink 7pm on 04/11/2020 Reported h/o seizure in 2018 that pt reports was ETOH withdrawal seizure. CT head: No acute process Transferred to ICU, intubated Self extubated 04/14/2020 Reintubated 12/16/2019 off Precedex drip, continued on Versed and Propofol, wean off accordingly No recurrence of seizures EEG: No evidence for focal or generalized encephalopathy and without evidence for potentially epileptogenic activity Neurologist consulted-appreciate the recommendations Brain MRI pending (4) Fever: tmax 39.4 greenish secretions per ET CXR no infiltrates, effusion urine culture pending sputum culture pending blood cultures pending possible HCAP? UTI? -- will need empiric IV antibiotics, will discuss with Dr. Corado (5) Alcohol abuse: Patient reiterates interest in joining alcohol rehab program Case management consulted (6) Hypomagnesemia: -Replace and monitor (7) Hypophosphatemia: -Replace and monitor (8) Transaminitis: T Bili: 1.5, AST: 176, ALT: 104, Alk Phos: 72 -Likely secondary to alcoholism -LFTs improving DVT Prophylaxis -SCDs Full Code Pt previously followed with Dr Kaur, however has not seen 10/2018 tried to call Patient's [employer]rel[employer] for update twice yesterday- no answer will try again today Admission and Anticipated Discharge Date Admission Date: April 12, 2020 Subjective ff up for delirium tremens remains intubated, remains on precedex and versed (+) fever - tmax 39.4 (+) green mucus per ET not in distress, sedated no other acute issues discussed with MORELIA Miramontes Review of Systems Review of Systems: All systems reviewed & are unremarkable except as noted in HPI & below Physical Exam Physical Exam: General-sedated, breathing with no effort or accessory muscle use Eyes- anicteric Neck- no JVD ET tube in place with green mucus Lungs- clear BS BL no rales/wheezing Heart- normal rate, regular rhythm; no murmurs Abdomen- normal bowel sounds, nondistended, soft, nontender Extremities- no pretibial edema, no calf tenderness (+) abrasions on BL knees, present on admission, minimal redness/erythema on the left knee, inferior aspect but no edema Neuro- sedated Skin- warm & dry Results & Data Results & Data ([facility]) Vital Signs (Past 12 Hours) Vital Signs Temp Pulse Resp BP Pulse Ox 04/17/20 11:18 102 H 98 04/17/20 11:00 112 H 98 04/17/20 10:30 109 H 98 04/17/20 10:15 93 H 115/70 98 04/17/20 10:00 39.4 C H 114 H 99 04/17/20 09:45 116 H 115/74 99 04/17/20 09:30 114 H 97 04/17/20 09:15 115 H 136/86 97 04/17/20 09:00 115 H 96 04/17/20 08:45 109 H 134/87 97 04/17/20 08:30 106 H 98 04/17/20 08:15 105 H 135/82 97 04/17/20 08:00 39.4 C H 105 H 99 04/17/20 07:45 103 H 127/80 98 04/17/20 07:30 100 H 23 99 04/17/20 07:15 105 H 129/81 99 04/17/20 07:00 98 H 99 04/17/20 05:37 85 18 99 04/17/20 05:10 37.9 C H 103 H 92 04/17/20 05:00 105 H 91 04/17/20 04:50 106 H 91 04/17/20 04:45 106 H 114/79 93 04/17/20 04:40 107 H 90 04/17/20 04:30 108 H 91 04/17/20 04:29 108 H 115/72 87 L 04/17/20 04:20 118 H 92 04/17/20 04:15 104 H 151/79 H 99 04/17/20 04:10 94 H 99 04/17/20 04:00 92 H 99 04/17/20 03:50 91 H 99 04/17/20 03:45 90 129/81 99 04/17/20 03:40 88 99 04/17/20 03:30 88 98 04/17/20 03:20 86 99 04/17/20 03:15 86 128/88 98 04/17/20 03:10 86 99 04/17/20 03:00 85 98 04/17/20 02:50 87 98 04/17/20 02:45 85 102/61 99 04/17/20 02:40 85 99 04/17/20 02:30 86 98 04/17/20 02:20 85 98 04/17/20 02:15 85 108/71 99 04/17/20 02:10 86 99 04/17/20 02:01 86 98 04/17/20 02:00 85 128/85 99 Laboratory Results Laboratory Results - last 24 hr 04/16/20 04/17/20 04/17/20 18:21 04:36 04:36 WBC 8.53 RBC 4.09 L Hgb 13.2 L Hct 40.5 L MCV 99.0 MCH 32.3 MCHC 32.6 RDW Std Deviation 47.2 H RDW Coeff of Joan 13.1 Plt Count 139 MPV 10.9 H Immature Gran % (Auto) 0.2 Neut % (Auto) 64.6 Lymph % (Auto) 8.4 [place] % (Auto) 22.6 Eos % (Auto) 3.6 Baso % (Auto) 0.6 Immature Gran # (Auto) 0.02 Neut # (Auto) 5.50 Lymph # (Auto) 0.72 L [place] # (Auto) 1.93 H Eos # (Auto) 0.31 Baso # (Auto) 0.05 ESR Sample Site POC pH POC pCO2 POC pO2 POC HCO3 POC Total CO2 POC Base Excess POC ABG O2 Sat Aj Test O2 Delivery Device POC O2 Rate Minute Ventilation POC FiO2 Tidal Volume PEEP Sodium 144 Potassium 3.6 Chloride 114 H Carbon Dioxide 22 Anion Gap 8.0 BUN 2 L Creatinine 0.57 L D Est Cr Clr Drug Dosing 163.8 Est GFR ( Amer) > 150.0 Est GFR (Non-Af Amer) 134.0 BUN/Creatinine Ratio 3.8 L Glucose 110 H POC Glucose 101 H Calcium 9.0 Phosphorus 4.2 Magnesium 2.0 Total Bilirubin 0.8 AST 69 H ALT 68 Alkaline Phosphatase 54 C-Reactive Protein Total Protein 6.9 Albumin 3.3 L Globulin 3.6 Albumin/Globulin Ratio 0.9 Procalcitonin Urine Color Urine Appearance Urine pH Ur Specific [place] Urine Protein Urine Glucose (UA) Urine Ketones Urine Blood Urine Nitrite Urine Bilirubin Urine Urobilinogen Ur Leukocyte Esterase Urine WBC (Auto) Urine RBC (Auto) U Hyaline Cast (Auto) U Epithel Cells (Auto) Urine Bacteria (Auto) 04/17/20 04/17/20 04/17/20 05:38 05:59 09:40 WBC RBC Hgb Hct MCV MCH MCHC RDW Std Deviation RDW Coeff of Joan Plt Count MPV Immature Gran % (Auto) Neut % (Auto) Lymph % (Auto) [place] % (Auto) Eos % (Auto) Baso % (Auto) Immature Gran # (Auto) Neut # (Auto) Lymph # (Auto) [place] # (Auto) Eos # (Auto) Baso # (Auto) ESR Sample Site R Brachial POC pH 7.37 POC pCO2 34 L POC pO2 54 L POC HCO3 20 POC Total CO2 21 L POC Base Excess -6.0 POC ABG O2 Sat 87.0 L Aj Test NA O2 Delivery Device Ventilator POC O2 Rate 16 Minute Ventilation 7.7 POC FiO2 30 Tidal Volume 450 PEEP 5 Sodium Potassium Chloride Carbon Dioxide Anion Gap BUN Creatinine Est Cr Clr Drug Dosing Est GFR ( Amer) Est GFR (Non-Af Amer) BUN/Creatinine Ratio Glucose POC Glucose 106 H Calcium Phosphorus Magnesium Total Bilirubin AST ALT Alkaline Phosphatase C-Reactive Protein Total Protein Albumin Globulin Albumin/Globulin Ratio Procalcitonin Urine Color Dark Yellow Urine Appearance Cloudy A Urine pH 5.0 Ur Specific [place] 1.020 Urine Protein Trace H Urine Glucose (UA) Negative Urine Ketones Negative Urine Blood 3+ H Urine Nitrite Negative Urine Bilirubin 1+ H Urine Urobilinogen Negative Ur Leukocyte Esterase 2+ H Urine WBC (Auto) 10-30 H Urine RBC (Auto) >30 H U Hyaline Cast (Auto) 5-10 H U Epithel Cells (Auto) 10-20 H Urine Bacteria (Auto) Negative 04/17/20 04/17/20 04/17/20 10:51 10:51 10:51 WBC RBC Hgb Hct MCV MCH MCHC RDW Std Deviation RDW Coeff of Joan Plt Count MPV Immature Gran % (Auto) Neut % (Auto) Lymph % (Auto) [place] % (Auto) Eos % (Auto) Baso % (Auto) Immature Gran # (Auto) Neut # (Auto) Lymph # (Auto) [place] # (Auto) Eos # (Auto) Baso # (Auto) ESR 8 Sample Site POC pH POC pCO2 POC pO2 POC HCO3 POC Total CO2 POC Base Excess POC ABG O2 Sat Aj Test O2 Delivery Device POC O2 Rate Minute Ventilation POC FiO2 Tidal Volume PEEP Sodium Potassium Chloride Carbon Dioxide Anion Gap BUN Creatinine Est Cr Clr Drug Dosing Est GFR ( Amer) Est GFR (Non-Af Amer) BUN/Creatinine Ratio Glucose POC Glucose Calcium Phosphorus Magnesium Total Bilirubin AST ALT Alkaline Phosphatase C-Reactive Protein 1.67 H Total Protein Albumin Globulin Albumin/Globulin Ratio Procalcitonin 0.12 Urine Color Urine Appearance Urine pH Ur Specific [place] Urine Protein Urine Glucose (UA) Urine Ketones Urine Blood Urine Nitrite Urine Bilirubin Urine Urobilinogen Ur Leukocyte Esterase Urine WBC (Auto) Urine RBC (Auto) U Hyaline Cast (Auto) U Epithel Cells (Auto) Urine Bacteria (Auto) 04/17/20 11:57 WBC RBC Hgb Hct MCV MCH MCHC RDW Std Deviation RDW Coeff of Joan Plt Count MPV Immature Gran % (Auto) Neut % (Auto) Lymph % (Auto) [place] % (Auto) Eos % (Auto) Baso % (Auto) Immature Gran # (Auto) Neut # (Auto) Lymph # (Auto) [place] # (Auto) Eos # (Auto) Baso # (Auto) ESR Sample Site POC pH POC pCO2 POC pO2 POC HCO3 POC Total CO2 POC Base Excess POC ABG O2 Sat Aj Test O2 Delivery Device POC O2 Rate Minute Ventilation POC FiO2 Tidal Volume PEEP Sodium Potassium Chloride Carbon Dioxide Anion Gap BUN Creatinine Est Cr Clr Drug Dosing Est GFR ( Amer) Est GFR (Non-Af Amer) BUN/Creatinine Ratio Glucose POC Glucose 107 H Calcium Phosphorus Magnesium Total Bilirubin AST ALT Alkaline Phosphatase C-Reactive Protein Total Protein Albumin Globulin Albumin/Globulin Ratio Procalcitonin Urine Color Urine Appearance Urine pH Ur Specific [place] Urine Protein Urine Glucose (UA) Urine Ketones Urine Blood Urine Nitrite Urine Bilirubin Urine Urobilinogen Ur Leukocyte Esterase Urine WBC (Auto) Urine RBC (Auto) U Hyaline Cast (Auto) U Epithel Cells (Auto) Urine Bacteria (Auto) (1) Alcohol withdrawal Complication of substance-induced condition: with unspecified complication Qualified Code(s): F10.239 - Alcohol dependence with withdrawal, unspecified
[2020-04-17] MEDS: DEXMEDETOMIDINE HCL 400 MCG in 0.9 % SODIUM CHLORIDE 96 ML IV SCH (15:09)
[2020-04-17] MEDS ORDERED: VANCOMYCIN CONSULT ACTIVE PRN (15:40)
[2020-04-17] MEDS ORDERED: PIPERACILL/TAZOBAC CONSULT ACTIVE PRN (15:41)
[2020-04-17] MEDS: ACETAMINOPHEN SOLN 650 MG/20.3 ML UDC OG PRN (16:13)
[2020-04-17] MEDS ORDERED: VANCOMYCIN HCL 1,500 MG in SODIUM CHLORIDE 0.9% 500 ML IV ONE (16:30)
[2020-04-17] MEDS ORDERED: PIPERACILLIN/TAZOBACTAM 4.5 GM in DEXTROSE 5% 100 ML IV ONE (16:30)
[2020-04-17] MEDS: FIBERSOURCE HN 1.2 CAL 1000 ML BAG NJ SCH (17:09)
--- NOTE | 2020-04-17 18:56 | Pharmacy Report ---
Pharmacy Abx Initial Consult - Date of Service April 17, 2020 - Pharmacy Dosing Scope Date of Consult: 04/17/20 Consultation requested by: Dr. Corado Pharmacy is consulted to initiate VANCOMYCIN/ZOSYN IV dosing therapy, order appropriate labs and adjust drug dose/frequency. - Subjective The patient is a 34 year old M admitted on 04/12/20 17:52. - Objective Height: 5 ft 6 in Weight: 63.4 kg Vital Signs (Past 12hrs): Vital Signs Temp Pulse Resp BP Pulse Ox 04/17/20 14:00 100 H 24 99 04/17/20 11:18 102 H 98 04/17/20 11:00 112 H 98 04/17/20 10:30 109 H 98 04/17/20 10:15 93 H 115/70 98 04/17/20 10:00 39.4 C H 114 H 99 04/17/20 09:45 116 H 115/74 99 04/17/20 09:30 114 H 97 04/17/20 09:15 115 H 136/86 97 04/17/20 09:00 115 H 96 04/17/20 08:45 109 H 134/87 97 04/17/20 08:30 106 H 98 04/17/20 08:15 105 H 135/82 97 04/17/20 08:00 39.4 C H 105 H 99 04/17/20 07:45 103 H 127/80 98 04/17/20 07:30 100 H 23 99 04/17/20 07:15 105 H 129/81 99 04/17/20 07:00 98 H 99 Lab Results (24hrs): Laboratory Tests (24 Hours) 04/17/20 04/17/20 04/17/20 10:51 10:51 10:51 WBC Neut # (Auto) ESR 8 Creatinine Est Cr Clr Drug Dosing C-Reactive Protein 1.67 H Procalcitonin 0.12 04/17/20 04/17/20 04:36 04:36 WBC 8.53 Neut # (Auto) 5.50 ESR Creatinine 0.57 L D Est Cr Clr Drug Dosing 163.8 C-Reactive Protein Procalcitonin Micro Results: 04/17/20 10:45 Aerobic Blood Culture - Pending Blood Anaerobic Blood Culture - Pending 04/17/20 10:51 Aerobic Blood Culture - Pending Blood Anaerobic Blood Culture - Pending 04/17/20 09:40 Urine Culture - Pending Urine,Straight Cath 04/17/20 09:40 Gram Stain - Pending Sputum,Vent Suction Sputum Culture - Pending - Assessment & Plan Assessment 34 year old M ordered VANCOMYCIN/ZOSYN for fever. Plan Vancomycin IV * Estimated PK Parameters: Vd 0.7 L/kg, Navneet 0.087 hr-1, t1/2 ~8 hr * Loading dose: 1500mg (~24 mg/kg) * Maintenance dose: 1000mg IV (~16mg/kg) every 8 hours * Goal trough level : 15 to 20 mcg/mL * Will check a trough level at [facility] if Vancomycin is continued past 48 hours. Piperacillin/tazobactam * 4.5g bolus administered over 30 minutes, then 3.375g IV extended infusion every 8 hours for CrCl greater than 20 mL/min. Pharmacy will continue to follow and will adjust dose/frequency as necessary. Thank you.
[2020-04-17] MEDS: PIPERACILLIN/TAZOBACTAM 3.375 GM in DEXTROSE 5% 100 ML IV SCH (20:31)
[2020-04-17] MEDS: HEPARIN SOD 5,000 UNIT/0.5 ML VIAL SQ SCH (20:32)
[2020-04-18] MEDS: VANCOMYCIN HCL 1,000 MG in SODIUM CHLORIDE 0.9% 250 ML IV SCH ×2 (02:44→09:09)
[2020-04-18 05:03] LABS: Basophils # (auto) 0.04 K/uL (0-0.2); Basophils % (auto) 0.5 %; Eosinophils # (auto) 0.37 K/uL (0-0.5); Eosinophils % (auto) 4.6 %; Hematocrit (blood only) 37.5 % (42-52); Hemoglobin 11.5 g/dL (14.0-18.0); Immature Granulocytes # (auto) 0.02 K/uL (0.00-0.02); Immature Granulocytes % (auto) 0.2 %; Lymphocytes # (auto) 1.16 K/uL (1.2-3.4); Lymphocytes % (auto) 14.5 %; Mean Corpuscular Hemoglobin 31.2 pg (25-34); Mean Corpuscular Hgb Conc 30.7 g/dL (32-36); Mean Corpuscular Volume 101.6 fL (80-100); Mean Platelet Volume 11.1 fL (7.4-10.4); Monocytes # (auto) 1.96 K/uL (0.11-0.59); Monocytes % (auto) 24.5 %; Neutrophils # (auto) 4.46 K/uL (1.4-6.5); Neutrophils % (auto) 55.7 %; Platelet Count 137 K/uL (130-400); RDW Coefficient of Variation 13.4 % (11.5-14.5); Red Blood Count 3.69 M/uL (4.7-6.1); White Blood Count 8.01 K/uL (4.8-10.8)
[2020-04-18] MEDS: D5W AND 1/2NSS 1,000 ML IV SCH ×2 (05:14→16:28)
[2020-04-18] MEDS: PIPERACILLIN/TAZOBACTAM 3.375 GM in DEXTROSE 5% 100 ML IV SCH ×2 (05:16→13:09)
[2020-04-18] MEDS: propofoL 1,000 MG/100 ML VIAL IV SCH (05:36)
[2020-04-18 06:04] LABS: Albumin Globulin Ratio 0.8 (0.9-2); Albumin Level 2.6 gm/dl (3.4-5.0); BUN Creatinine Ratio 5.8 (10-20); Calcium 8.1 mg/dl (8.5-10.1); Creatinine Clr Calc Pharmacy 132.5 ml/min; Est GFR (African American) 142.7; Est GFR (Non-African American) 123.1; Globulin 3.4 gm/dl (2.5-4.0); Magnesium 1.9 mg/dl (1.8-2.4)
[2020-04-18 06:05] LABS: Phosphorus 3.4 mg/dl (2.5-4.9)
[2020-04-18] MEDS ORDERED: POTASSIUM ACETATE 10 MEQ in 0.9 % SODIUM CHLORIDE 100 ML IV STA (06:08)
[2020-04-18] MEDS ORDERED: POTASSIUM CHLORIDE 20 MEQ/15 ML UDC PO STA (06:08)
[2020-04-18 06:29] LABS: iSTAT Arterial Blood Gas HCO3 21 meg/L (19-24); iSTAT Arterial Blood Gas pCO2 34 mmHg (35-46); iSTAT Arterial Blood Gas pH 7.39 (7.35-7.45); iSTAT Arterial Blood Gas pO2 73 mmHg (80-95); iSTAT Carbon Dioxide 22 mmol/L (24-31); iSTAT FiO2 40 %; iSTAT Site L Radial
[2020-04-18] MEDS: POTASSIUM CHLORIDE / WTR 10 MEQ/100 ML PLCT IV SCH ×2 (06:29→07:53)
[2020-04-18] MEDS: FIBERSOURCE HN 1.2 CAL 1000 ML BAG NJ SCH (07:52)
[2020-04-18] MEDS: THIAMINE HCL 100 MG TAB PO SCH (07:53)
[2020-04-18] MEDS: FOLIC ACID 1 MG TAB PO SCH (07:53)
[2020-04-18] MEDS: NICOTINE 21 MG/24 HR TDSY TD SCH (07:53)
[2020-04-18] MEDS: HEPARIN SOD 5,000 UNIT/0.5 ML VIAL SQ SCH ×2 (07:54→21:05)
[2020-04-18] MEDS: MULTIVITAMIN TAB PO SCH (07:54)
[2020-04-18] MEDS: fentaNYL citrate 100 MCG/2 ML VIAL IV PRN ×3 (10:14→10:48)
[2020-04-18] MEDS: PANTOprazole 40 MG in SYRINGE 0 ML IV SCH (11:06)
[2020-04-18] MEDS: ACETAMINOPHEN SOLN 650 MG/20.3 ML UDC OG PRN (12:19)
[2020-04-18] MEDS: DEXMEDETOMIDINE HCL 400 MCG in 0.9 % SODIUM CHLORIDE 96 ML IV SCH ×2 (14:44→21:04)
--- NOTE | 2020-04-18 18:25 | Critical Care Progress Note ---
Date of Service April 18, 2020 Assessment & Plan (1) DTs (delirium tremens): 34-year-old male with past medical history of alcohol abuse were admitted because of alcohol withdrawal, patient went into DTs and was upgraded to the ICU. Delirium tremens -Continue Precedex -Oral phenobarbital at this time for empiric treatment -- VDRF secondary to metabolic encephalopathy Secondary to DTs Self extubated 04/14/2020, reintubated 04/15/2020 Patient liberated from ventilator today Will require [place] driving restriction notification form completed -- New onset fever Septic work-up ordered We will give a dose of antibiotic and follow-up septic work-up Chest x-ray does not show any infiltrate as of 04/17/2020 ESR: 8, CRP 1.67, procalcitonin 0.12, UA is negative for bacteria and nitrates. --Seizure CT head negative Neurology on board Currently thinking that this is most likely from alcohol withdrawal. They do recommend an MRI of the brain. Patient has similar episode in the past couple of years ago. He has not been on any antiseizure medications Magnesium greater than 2. Replace electrolytes as needed. --Transaminitis Likely secondary to history of alcohol abuse AST, ALT trending down T bili 1.2, there is a component of indirect bili as well Monitor --Status post thrombocytopenia Likely secondary to Bone marrow toxicity of alcohol Monitor for any signs of bleeding. Improving, Monitor --Prophylaxis VTE: Heparin given the patient is no more thrombocytopenic GI: Protonix Diet: We will start the patient on tube feeds Lines: Peripheral, right arm picc, self extubated 04/14/2020, reintubated 04/15/2020 Patient pulled out his picc line, not requiring vasoactive medication requiring extended vascular access beyond IVs peripheral (2) Seizure: Admission and Anticipated Discharge Date Admission Date: April 12, 2020 Subjective No overnight events Review of Systems Review of Systems: Unobtainable due to endotracheal tube Physical Exam Physical Exam: General: Somnolent. nontoxic. Skin: Warm, dry, Head: Atraumatic Ears, nose, mouth and throat: Obscured by endotracheal tube Cardiovascular: Normal peripheral perfusion Respiratory: no respiratory distress Gastrointestinal: Non distended Musculoskeletal: No deformity Results & Data Results & Data ([facility]) Vital Signs (Past 12 Hours) Vital Signs Temp Pulse Pulse Resp BP BP Pulse Ox 04/18/20 17:55 37.6 C H 04/18/20 17:49 94 H 21 142/92 H 95 04/18/20 17:30 101 H 94 04/18/20 17:00 112 H 04/18/20 16:49 105 H 146/88 H 96 04/18/20 16:30 107 H 96 04/18/20 16:00 37.7 C H 97 H 100 04/18/20 15:49 100 H 134/97 97 04/18/20 15:29 37.7 C H 04/18/20 15:00 37.8 C H 108 H 98 04/18/20 14:48 113 H 150/95 H 98 04/18/20 14:16 38.0 C H 125 H 150/96 H 94 04/18/20 14:00 106 H 99 04/18/20 13:46 109 H 136/82 100 04/18/20 13:16 105 H 131/81 99 04/18/20 13:00 106 H 99 04/18/20 12:46 112 H 144/86 H 99 04/18/20 12:30 121 H 97 04/18/20 12:25 115 H 99 04/18/20 12:16 38.3 C H 110 H 138/95 100 04/18/20 12:00 128 H 23 99 04/18/20 11:46 115 H 143/89 H 100 04/18/20 11:30 109 H 99 04/18/20 11:16 116 H 134/82 100 04/18/20 11:00 37.6 C H 97 H 99 04/18/20 10:46 101 H 121/77 99 04/18/20 10:30 98 H 100 04/18/20 10:16 116 H 129/79 99 04/18/20 10:00 37.4 C 89 97 04/18/20 09:46 104 H 122/74 96 04/18/20 09:30 98 H 96 04/18/20 09:16 91 H 110/64 98 04/18/20 09:00 96 H 100 04/18/20 08:46 93 H 111/70 100 04/18/20 08:30 37.3 C 84 100 04/18/20 08:16 90 114/72 100 04/18/20 08:00 37.5 C 86 88 18 98/64 L 100 06/22/20 07:46 81 104/64 100 04/18/20 07:38 81 20 100 04/18/20 07:30 81 100 04/18/20 07:16 82 98/64 L 100 04/18/20 07:00 82 100 Coding Level of Care Code Critical Care 1st 30-74 mins Diagnoses DTs (delirium tremens) F10.231 Seizure R56.9 Time Spent (min) 50 Comment I have personally spent 50 minutes of critical care time in the direct management of this patient. This is a life/limb threatening event. This includes time spent evaluating patient, direct bedside care, chart review, placing orders, interpretation of diagnostic studies, discussion with consultants, patient, and/or family members regarding treatment decisions, as well as other required patient management activities. This time is exclusive of all separately billable procedures, and teaching time and separate from and in addition to any other critical care service time.
[2020-04-19] MEDS: DEXMEDETOMIDINE HCL 400 MCG in 0.9 % SODIUM CHLORIDE 96 ML IV SCH ×7 (01:25→16:12)
[2020-04-19] MEDS: D5W AND 1/2NSS 1,000 ML IV SCH (04:08)
[2020-04-19 05:16] LABS: Basophils # (auto) 0.06 K/uL (0-0.2); Basophils % (auto) 0.7 %; Eosinophils # (auto) 0.54 K/uL (0-0.5); Eosinophils % (auto) 6.7 %; Hematocrit (blood only) 38.9 % (42-52); Immature Granulocytes # (auto) 0.03 K/uL (0.00-0.02); Immature Granulocytes % (auto) 0.4 %; Lymphocytes # (auto) 0.95 K/uL (1.2-3.4); Lymphocytes % (auto) 11.9 %; Mean Corpuscular Hemoglobin 32.5 pg (25-34); Mean Corpuscular Hgb Conc 33.4 g/dL (32-36); Mean Corpuscular Volume 97.3 fL (80-100); Mean Platelet Volume 10.5 fL (7.4-10.4); Monocytes # (auto) 2.32 K/uL (0.11-0.59); Neutrophils # (auto) 4.11 K/uL (1.4-6.5); Neutrophils % (auto) 51.3 %; Platelet Count 174 K/uL (130-400); RDW Coefficient of Variation 12.7 % (11.5-14.5); RDW Standard Deviation 45.6 fL (36.4-46.3); White Blood Count 8.01 K/uL (4.8-10.8)
[2020-04-19 05:47] LABS: Alanine Aminotransferase 58 U/L (12-78); Aspartate Aminotransferase 82 U/L (15-37); Blood Urea Nitrogen 2 mg/dl (7-18); Calcium 9.2 mg/dl (8.5-10.1); Carbon Dioxide 23 mmol/L (21-32); Chloride 112 mmol/L (98-107); Creatinine Clr Calc Pharmacy 162.7 ml/min; Est GFR (African American) > 150.0; Glucose 97 mg/dl (70-99); Magnesium 1.8 mg/dl (1.8-2.4); Potassium 3.5 mmol/L (3.5-5.1); Sodium 142 mmol/L (136-145)
[2020-04-19 06:00] LABS: Albumin Globulin Ratio 0.8 (0.9-2); Alkaline Phosphatase 66 U/L (45-117); Bilirubin,Total 1.1 mg/dl (0.2-1); Phosphorus 3.6 mg/dl (2.5-4.9)
[2020-04-19] MEDS ORDERED: MAGNESIUM SULFATE / D5W 1 GM/100 ML BAG IV SCH (06:15)
[2020-04-19] MEDS: POTASSIUM CHLORIDE / WTR 10 MEQ/100 ML PLCT IV SCH ×3 (06:33→09:37)
--- NOTE | 2020-04-19 07:31 | Hospitalist Progress Note ---
Date of Service Delayed entry Date of service April 18, 2020 April 19, 2020 Assessment & Plan (1) DTs (delirium tremens): (2) Seizure: (3) Alcohol withdrawal: Seizure episode, delirium tremens Per admitting service notes Pt is 34 y/o M with PMH ETOH abuse, seizure in 2018 presented to ER with C/O seizure. 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 Co-workers were able to make sure pt did not fall and lower him to the ground. Pt does not remember incident. It is reported pt was post-ictal after event. Upon ER arrival pt is awake, alert, shaky and anxious. Pt reports drinks 8-12 beers daily. Last drink 7pm on 04/11/2020 Reported h/o seizure in 2018 that pt reports was ETOH withdrawal seizure. CT head: No acute process EEG: No evidence for focal or generalized encephalopathy and without evidence for potentially epileptogenic activity Patient's withdrawal symptoms escalated on hospital day #2, 04/13/2020 Transferred to ICU, subsequently intubated Placed on Precedex drip, Versed and propofol Self extubated 04/14/2020 Reintubated 04/15/2020 Extubated 04/18/2020 Still having some signs of anxiety and confusion Continued on Precedex drip, wean off accordingly No recurrence of seizures Neurologist consulted-appreciate the recommendations Brain MRI pending (4) Fever: tmax 39.4 greenish secretions per ET CXR no infiltrates, effusion urine culture pending sputum culture pending blood cultures pending possible HCAP? UTI? --Antibiotics started (5) Alcohol abuse: Patient reiterates interest in joining alcohol rehab program Case management consulted (6) Hypomagnesemia: -Replace and monitor (7) Hypophosphatemia: -Replace and monitor (8) Transaminitis: T Bili: 1.5, AST: 176, ALT: 104, Alk Phos: 72 -Likely secondary to alcoholism -LFTs improving DVT Prophylaxis -Plan subcutaneous every 12 Full Code Pt previously followed with Dr Kaur, however has not seen 10/2018 Admission and Anticipated Discharge Date Admission Date: April 12, 2020 Subjective Follow-up for delirium tremens Status post extubation remains on Precedex Seen awake, but confused, not in distress, calm, cooperative Denies shortness of breath, chest pain, palpitations, dizziness, abdominal pain, nausea or vomiting No other symptoms Review of Systems Review of Systems: All systems reviewed & are unremarkable except as noted in HPI & below Physical Exam Physical Exam: General- oriented x1, not in distress, speaks in sentences with no effort or accessory muscle use Eyes- anicteric Neck- no JVD Lungs- clear breath sounds bilaterally, no crackles, no wheezing Heart- normal rate, regular rhythm; no murmurs Abdomen- normal bowel sounds, nondistended, soft, nontender Extremities- no pretibial edema, no calf tenderness Abrasions on bilateral knees, no signs of infection Healing well Neuro- alert, oriented x 1; confused, otherwise no gross focal neurologic deficits Skin- warm & dry Results & Data Results & Data ([facility]) Vital Signs (Past 12 Hours) Vital Signs Temp Pulse Resp BP Pulse Ox 04/19/20 05:25 82 18 147/101 H 95 04/19/20 05:21 71 16 136/93 95 04/19/20 03:03 37.2 C 79 136/93 94 04/19/20 00:42 37.2 C 83 18 151/99 H 96 04/19/20 00:00 83 04/18/20 23:01 80 16 137/103 H 94 04/18/20 22:46 99 H 16 126/77 93 04/18/20 21:11 36.6 C 90 16 135/93 96 04/18/20 20:49 85 15 141/113 H 95 04/18/20 19:49 90 19 147/98 H 96 Laboratory Results All noted and reviewed (1) Alcohol withdrawal Complication of substance-induced condition: with unspecified complication Qualified Code(s): F10.239 - Alcohol dependence with withdrawal, unspecified
[2020-04-19] MEDS: MULTIVITAMIN TAB PO SCH (08:28)
[2020-04-19] MEDS: THIAMINE HCL 100 MG TAB PO SCH (08:28)
[2020-04-19] MEDS: FOLIC ACID 1 MG TAB PO SCH (08:28)
[2020-04-19] MEDS: NICOTINE 21 MG/24 HR TDSY TD SCH (08:30)
[2020-04-19] MEDS: HEPARIN SOD 5,000 UNIT/0.5 ML VIAL SQ SCH ×2 (08:32→20:44)
[2020-04-19] MEDS ORDERED: Nursing to Pharmacy Communication SCH (10:00)
--- NOTE | 2020-04-19 10:20 | Critical Care Progress Note ---
Date of Service April 19, 2020 Assessment & Plan (1) DTs (delirium tremens): 34-year-old male with past medical history of alcohol abuse were admitted because of alcohol withdrawal, patient went into DTs and was upgraded to the ICU. Delirium tremens -Continue Precedex -Decreasing requirements -Oral phenobarbital at this time for empiric treatment -Extended higher dose duration and given breakthrough dosing -- VDRF secondary to metabolic encephalopathy: Resolved --Bacterial tracheitis Levaquin for Haemophilus beta-lactamase positive from sputum specimen --Seizure: Improved CT head negative Neurology on board --Transaminitis: Improved --Status post thrombocytopenia Likely secondary to Bone marrow toxicity of alcohol Monitor for any signs of bleeding. Improving, Monitor --Prophylaxis VTE: Heparin given the patient is no more thrombocytopenic GI: Protonix Diet: Regular diet Lines: Peripheral, right arm picc discontinued 04/18/2020, self extubated 04/14/2020, reintubated 04/15/2020 -Peripheral IVs Disposition: ICU for intravenous medications. (2) Seizure: Admission and Anticipated Discharge Date Admission Date: April 12, 2020 Subjective Continued altered mental status Review of Systems Review of Systems: Unobtainable due to reduced consciousness Physical Exam Physical Exam: General: Alert. nontoxic. Skin: Warm, dry, Head: Atraumatic Ears, nose, mouth and throat: Airway patent Cardiovascular: Normal peripheral perfusion Respiratory: no respiratory distress Gastrointestinal: Non distended Musculoskeletal: No deformity Results & Data Results & Data ([facility]) Vital Signs (Past 12 Hours) Vital Signs Temp Pulse Resp BP Pulse Ox 04/19/20 08:00 80 04/19/20 05:25 82 18 147/101 H 95 04/19/20 05:21 71 16 136/93 95 04/19/20 03:03 37.2 C 79 136/93 94 04/19/20 00:42 37.2 C 83 18 151/99 H 96 04/19/20 00:00 83 04/18/20 23:01 80 16 137/103 H 94 04/18/20 22:46 99 H 16 126/77 93 Coding Level of Care Code Critical Care 1st 30-74 mins Diagnoses DTs (delirium tremens) F10.231 Seizure R56.9 Time Spent (min) 40 Comment I have personally spent 40 minutes of critical care time in the direct management of this patient. This is a life/limb threatening event. This includes time spent evaluating patient, direct bedside care, chart review, placing orders, interpretation of diagnostic studies, discussion with consultants, patient, and/or family members regarding treatment decisions, as well as other required patient management activities. This time is exclusive of all separately billable procedures, and teaching time and separate from and in addition to any other critical care service time.
[2020-04-19] MEDS ORDERED: PHENobarbital sodium 65 MG/ML VIAL IV STA (10:22)
[2020-04-19] MEDS ORDERED: ACETAMINOPHEN 325 MG TAB PO PRN ×2 (10:42→10:50)
[2020-04-19] MEDS: MIDAZOLAM HCL 125 MG/250 ML BAG IV SCH ×2 (11:14→11:15)
[2020-04-19] MEDS: propofoL 1,000 MG/100 ML VIAL IV SCH ×3 (11:14→11:16)
[2020-04-19] MEDS: ACETAMINOPHEN SUSP 325 MG/10.15 ML UDC PO PRN (11:53)
[2020-04-19] MEDS: LEVOFLOXACIN/D5W 750 MG/150 ML BAG IV SCH (12:51)
--- NOTE | 2020-04-19 17:04 | Ultrasound Report ---
US venous doppler UE LT CLINICAL HISTORY: arm swelling, r/o dvt COMPARISON STUDY: No previous studies for comparison. FINDINGS: There is nonocclusive thrombus within the left basilic vein within the distal aspect of the upper arm. There is occlusive thrombus within the left cephalic vein. No thrombus was visualized in the internal jugular, subclavian, axillary, brachial, radial, or ulnar veins. The left antecubital fo ssa area was not completely evaluated due to an IV site.. IMPRESSION: 1. No evidence of left upper extremity DVT 2. Superficial thrombus involving the left basilic and cephalic veins. ACT 112: Negative or not required by law. Electronically signed by: Ke Swain M.D. 04/19/2020 5:03 PM
--- NOTE | 2020-04-19 18:10 | Hospitalist Progress Note ---
Date of Service April 19, 2020 Assessment & Plan (1) DTs (delirium tremens): (2) Seizure: (3) Alcohol withdrawal: Seizure episode, delirium tremens Per admitting service notes Pt is 34 y/o M with PMH ETOH abuse, seizure in 2018 presented to ER with C/O seizure. 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 Co-workers were able to make sure pt did not fall and lower him to the ground. Pt does not remember incident. It is reported pt was post-ictal after event. Upon ER arrival pt is awake, alert, shaky and anxious. Pt reports drinks 8-12 beers daily. Last drink 7pm on 04/11/2020 Reported h/o seizure in 2018 that pt reports was ETOH withdrawal seizure. CT head: No acute process EEG: No evidence for focal or generalized encephalopathy and without evidence for potentially epileptogenic activity Neuro consulted, does not recommend starting any antiepileptics at this time, recommend brain MRI-pending However, patient's withdrawal symptoms escalated on hospital day #2, 04/13/2020 Transferred to ICU, subsequently intubated Placed on Precedex drip, Versed and propofol Self extubated 04/14/2020 Reintubated 04/15/2020 Extubated 04/18/2020 Continued on Precedex drip, being weaned off accordingly, given phenobarbital i ntermittently Mental status improving gradually No recurrence of seizures Advance diet accordingly Brain MRI recommended by neurology service, pending (4) Fever: Likely from bacterial tracheitis tmax 39.4 greenish secretions per ET CXR no infiltrates, effusion urine culture coag negative staph sputum culture positive Haemophilus influenza blood cultures negative so far --Continue Levaquin (5) Alcohol abuse: Patient expressed interest in joining alcohol rehab program during admission Case management consulted, plan to transition from hospital directly to alcohol rehab when medically stable (6) Superficial venous thrombosis of arm: Left arm superficial venous thrombosis Doppler ultrasound left upper arm: 1. No evidence of left upper extremity DVT 2. Superficial thrombus involving the left basilic and cephalic veins. --Continue heparin subcutaneous for DVT prophylaxis (7) Hypomagnesemia: -Replace and monitor (8) Hypophosphatemia: -Replace and monitor (9) Transaminitis: T Bili: 1.5, AST: 176, ALT: 104, Alk Phos: 72 -Likely secondary to alcoholism -LFTs improving DVT Prophylaxis -Heparin subcutaneous every 12 Full Code Pt previously followed with Dr Kaur, however has not seen 10/2018 Admission and Anticipated Discharge Date Admission Date: April 12, 2020 Subjective Follow-up for delirium tremens Remains on Precedex drip, being weaned off Seen resting in bed, alert, less confused Patient is more conversant, answers more questions appropriately Denies tremors or anxiety Has occasional cough with green sputum Denies shortness of breath, chest pain, palpitations, dizziness, nausea Tolerating diet well No other symptoms Review of Systems Review of Systems: All systems reviewed & are unremarkable except as noted in HPI & below Physical Exam Physical Exam: General- oriented x 2, not in distress, speaks in sentences with no effort or accessory muscle use Less confused Eyes- anicteric Neck- no JVD Lungs- clear breath sounds no crackles bilaterally wheezing Heart- normal rate, regular rhythm; no murmurs Abdomen- normal bowel sounds, nondistended, soft, nontender Extremities- no pretibial edema, no calf tenderness Positive moderate edema left upper extremity, no warmth or tenderness Neuro- alert, oriented x 2; no gross focal neurologic deficits Skin- warm & dry Results & Data Results & Data ([facility]) Vital Signs (Past 12 Hours) Vital Signs Temp Pulse Resp BP Pulse Ox 04/19/20 16:13 37.3 C 78 18 101/58 L 92 04/19/20 15:28 81 04/19/20 14:52 36.9 C 80 20 107/62 96 04/19/20 13:00 37.0 C 79 20 118/81 96 04/19/20 11:04 37.0 C 76 134/93 97 04/19/20 09:02 37.0 C 76 18 139/102 H 96 04/19/20 08:00 80 04/19/20 07:01 37.1 C 80 18 139/101 H 97 Laboratory Results Laboratory Results - last 24 hr 04/19/20 04/19/20 05:07 05:07 WBC 8.01 RBC 4.00 L Hgb 13.0 L Hct 38.9 L MCV 97.3 MCH 32.5 MCHC 33.4 RDW Std Deviation 45.6 RDW Coeff of Joan 12.7 Plt Count 174 MPV 10.5 H Immature Gran % (Auto) 0.4 Neut % (Auto) 51.3 Lymph % (Auto) 11.9 [place] % (Auto) 29.0 Eos % (Auto) 6.7 Baso % (Auto) 0.7 Neut # (Auto) 4.11 Lymph # (Auto) 0.95 L [place] # (Auto) 2.32 H Eos # (Auto) 0.54 H Baso # (Auto) 0.06 Immature Gran # (Auto) 0.03 H Sodium 142 Potassium 3.5 D Chloride 112 H Carbon Dioxide 23 Anion Gap 7.0 BUN 2 L Creatinine 0.57 L Est Cr Clr Drug Dosing 162.7 Est GFR ( Amer) > 150.0 Est GFR (Non-Af Amer) 134.0 BUN/Creatinine Ratio 4.0 L Glucose 97 Calcium 9.2 Phosphorus 3.6 Magnesium 1.8 Total Bilirubin 1.1 H AST 82 H ALT 58 Alkaline Phosphatase 66 Total Protein 7.0 Albumin 3.0 L Globulin 4.0 Albumin/Globulin Ratio 0.8 L (1) Alcohol withdrawal Complication of substance-induced condition: with unspecified complication Qualified Code(s): F10.239 - Alcohol dependence with withdrawal, unspecified
[2020-04-20 04:37] LABS: Basophils % (auto) 1.2 %; Eosinophils # (auto) 0.44 K/uL (0-0.5); Eosinophils % (auto) 5.2 %; Hematocrit (blood only) 38.2 % (42-52); Hemoglobin 12.5 g/dL (14.0-18.0); Immature Granulocytes # (auto) 0.07 K/uL (0.00-0.02); Immature Granulocytes % (auto) 0.8 %; Lymphocytes # (auto) 1.77 K/uL (1.2-3.4); Lymphocytes % (auto) 20.9 %; Mean Corpuscular Hemoglobin 32.4 pg (25-34); Mean Corpuscular Hgb Conc 32.7 g/dL (32-36); Mean Platelet Volume 10.1 fL (7.4-10.4); Monocytes # (auto) 2.16 K/uL (0.11-0.59); Monocytes % (auto) 25.6 %; Neutrophils # (auto) 3.91 K/uL (1.4-6.5); Neutrophils % (auto) 46.3 %; Platelet Count 236 K/uL (130-400); RDW Coefficient of Variation 12.9 % (11.5-14.5); RDW Standard Deviation 46.6 fL (36.4-46.3); Red Blood Count 3.86 M/uL (4.7-6.1); White Blood Count 8.45 K/uL (4.8-10.8)
[2020-04-20 05:27] LABS: Albumin Globulin Ratio 0.8 (0.9-2); Albumin Level 2.9 gm/dl (3.4-5.0); BUN Creatinine Ratio 7.9 (10-20); Bilirubin,Total 0.8 mg/dl (0.2-1); Creatinine Clr Calc Pharmacy 135.3 ml/min; Est GFR (African American) 144.4; Est GFR (Non-African American) 124.6; Globulin 3.8 gm/dl (2.5-4.0); Magnesium 1.9 mg/dl (1.8-2.4); Potassium 3.5 mmol/L (3.5-5.1); Total Protein 6.7 gm/dl (6.4-8.2)
[2020-04-20 05:29] LABS: Phosphorus 3.9 mg/dl (2.5-4.9)
[2020-04-20] MEDS ORDERED: ICU ELECTROLYTE REPLACEMENT PROTOCOL PRN (05:51)
--- NOTE | 2020-04-20 07:57 | Hospitalist Progress Note ---
Date of Service April 20, 2020 Assessment & Plan (1) DTs (delirium tremens): (2) Seizure: (3) Alcohol withdrawal: Seizure episode, delirium tremens Per admitting service notes Pt is 34 y/o M with PMH ETOH abuse, seizure in 2018 presented to ER with C/O seizure. 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 Co-workers were able to make sure pt did not fall and lower him to the ground. Pt does not remember incident. It is reported pt was post-ictal after event. Upon ER arrival pt is awake, alert, shaky and anxious. Pt reports drinks 8-12 beers daily. Last drink 7pm on 04/11/2020 Reported h/o seizure in 2018 that pt reports was ETOH withdrawal seizure. CT head: No acute process EEG: No evidence for focal or generalized encephalopathy and without evidence for potentially epileptogenic activity Neuro consulted, does not recommend starting any antiepileptics at this time, recommend brain MRI-pending However, patient's withdrawal symptoms escalated on hospital day #2, 04/13/2020 Transferred to ICU, subsequently intubated Was on Precedex drip, Versed and propofol Self extubated 04/14/2020 Reintubated 04/15/2020 Extubated 04/18/2020 Off Precedex drip, Versed, and Propofol, given phenobarbital Mental status improving gradually No recurrence of seizures Advance diet accordingly Brain MRI not needed unless he has more seizures (4) Fever: Likely from bacterial tracheitis tmax 39.4, still febrile last night greenish secretions per ET CXR no infiltrates, effusion urine culture coag negative staph sputum culture positive Haemophilus influenza blood cultures negative so far --Continue Levaquin (5) Alcohol abuse: Patient expressed interest in joining alcohol rehab program during admission Case management consulted, plan to transition from hospital directly to alcohol rehab when medically stable (6) Superficial venous thrombosis of arm: Left arm superficial venous thrombosis Doppler ultrasound left upper arm: 1. No evidence of left upper extremity DVT 2. Superficial thrombus involving the left basilic and cephalic veins. --Continue heparin subcutaneous for DVT prophylaxis (7) Hypomagnesemia: Monitor (8) Hypophosphatemia: Monitor (9) Transaminitis: -Secondary to alcoholism -LFTs improving DVT Prophylaxis -Heparin subcutaneous every 12 Full Code Pt previously followed with Dr Kaur, however has not seen 10/2018 Inpatient Alcohol Rehab on DC Likely 1-3 days if Afebrile ROS-No Headache, No Visual Changes, No Nausea, No Vomiting, No Fever, No Chills, No Neck Pain or Stiffness, No Chest Pain, No Palpitations, No SOB, No RAND, No Cough, No Sputum, No Wheezing, No Abdominal Pain, No Diarrhea, No Hematemesis, No Hemoptysis, No Unexpected Weight Loss, No Flank pain, No Melena, No Hematochezia, No Frequency, No Urgency, No Burning, No Hematuria, No Rashes, No Diaphoresis. Appetite is Normal Physical Exam Gen-AAO x 3, NAD, febrile last night, pleasant Head-NCAT, EOMI, PERRLA, Anicteric Sclera, No Posterior Pharyngeal Erythema Neck-Supple, No JVD, No Thyromegaly, No Masses, No LAD, No Bruits Lungs-Clear to Auscultation Bilaterally, No Rales, No Rhonchi, No Wheezing, No Crepitus Chest-No S4, +S1, +S2, No S3, No Murmurs, No Rubs, No Gallops, No Ectopy Abdomen-Soft, Bowel Sounds Present, Non Tender, Non Distended, No Hepatomegaly, No Splenomegaly, No Palpable Masses, No Rebound, No Rigidity, No Guarding Musculoskeletal-Full Range of Motion Bilaterally, No CVAT Extremities-No Cyanosis, No Clubbing, No Edema Nuero-Cranial Nerves II-XII grossly intact, Motor WNL, DTRs WNL, Strength WNL, Non Focal Psych-Normal Mood Admission and Anticipated Discharge Date Admission Date: April 12, 2020 Results & Data Results & Data ([facility]) Vital Signs (Past 12 Hours) Vital Signs Temp Pulse Resp BP Pulse Ox 04/20/20 06:00 98 H 20 04/20/20 05:14 36.6 C 99 H 18 124/85 94 04/20/20 03:22 37.2 C 103 H 18 120/82 94 04/19/20 23:47 37.8 C H 93 H 22 127/74 95 04/19/20 21:59 37.9 C H 96 H 23 136/89 95 04/19/20 20:01 37.6 C H 98 H 19 134/86 96 (1) Alcohol withdrawal Complication of substance-induced condition: with unspecified complication Qualified Code(s): F10.239 - Alcohol dependence with withdrawal, unspecified
--- NOTE | 2020-04-20 08:45 | Critical Care Progress Note ---
Date of Service April 20, 2020 Assessment & Plan (1) DTs (delirium tremens): 34-year-old male with past medical history of alcohol abuse were admitted because of alcohol withdrawal, patient went into DTs and was upgraded to the ICU. Delirium tremens: Improved -Precedex discontinued -Oral phenobarbital at this time for empiric treatment -Currently on 2 days of 32.4 mg oral dosing -- VDRF secondary to metabolic encephalopathy: Resolved --Bacterial tracheitis Levaquin for Haemophilus beta-lactamase positive from sputum specimen --Seizure: Improved CT head negative Neurology on board --Transaminitis: Improved --Status post thrombocytopenia Thiamine and folic acid supplementation --Prophylaxis VTE: Heparin given the patient is no more thrombocytopenic GI: Protonix Diet: Regular diet Lines: Peripheral, right arm picc discontinued 04/18/2020, self extubated 04/14/2020, reintubated 04/15/2020 -Peripheral IVs Disposition: Stable for downgrade out of ICU (2) Seizure: Admission and Anticipated Discharge Date Admission Date: April 12, 2020 Subjective Mental status improved/encephalopathy resolved. Does not remember events of the last several days. Review of Systems Review of Systems: No chest pain or shortness of breath Physical Exam Physical Exam: General: Alert. nontoxic. Skin: Warm, dry, Head: Atraumatic Ears, nose, mouth and throat: airway patent Cardiovascular: Normal peripheral perfusion Respiratory: no respiratory distress Gastrointestinal: Non distended Musculoskeletal: No deformity Results & Data Results & Data ([facility]) Vital Signs (Past 12 Hours) Vital Signs Temp Pulse Resp BP Pulse Ox 04/20/20 06:00 98 H 20 04/20/20 05:14 36.6 C 99 H 18 124/85 94 04/20/20 03:22 37.2 C 103 H 18 120/82 94 04/19/20 23:47 37.8 C H 93 H 22 127/74 95 04/19/20 21:59 37.9 C H 96 H 23 136/89 95 Laboratory Results 04/20/20 04/20/20 Range/Units 04:27 04:27 WBC 8.45 (4.8-10.8) K/uL RBC 3.86 L (4.7-6.1) M/uL Hgb 12.5 L (14.0-18.0) g/dL Hct 38.2 L (42-52) % MCV 99.0 (80-100) fL MCH 32.4 (25-34) pg MCHC 32.7 (32-36) g/dL RDW Std Deviation 46.6 H (36.4-46.3) fL RDW Coeff of Joan 12.9 (11.5-14.5) % Plt Count 236 (130-400) K/uL MPV 10.1 (7.4-10.4) fL Immature Gran % (Auto) 0.8 % Neut % (Auto) 46.3 % Lymph % (Auto) 20.9 % [place] % (Auto) 25.6 % Eos % (Auto) 5.2 % Baso % (Auto) 1.2 % Neut # (Auto) 3.91 (1.4-6.5) K/uL Lymph # (Auto) 1.77 (1.2-3.4) K/uL [place] # (Auto) 2.16 H (0.11-0.59) K/uL Eos # (Auto) 0.44 (0-0.5) K/uL Baso # (Auto) 0.10 (0-0.2) K/uL Immature Gran # (Auto) 0.07 H (0.00-0.02) K/uL Sodium 141 (136-145) mmol/L Potassium 3.5 (3.5-5.1) mmol/L Chloride 110 H (98-107) mmol/L Carbon Dioxide 26 (21-32) mmol/L Anion Gap 5.0 (3-11) BUN 5 L (7-18) mg/dl Creatinine 0.68 (0.6-1.4) mg/dl Est Cr Clr Drug Dosing 135.3 ml/min Est GFR ( Amer) 144.4 Est GFR (Non-Af Amer) 124.6 BUN/Creatinine Ratio 7.9 L (10-20) Glucose 88 (70-99) mg/dl Calcium 9.0 (8.5-10.1) mg/dl Phosphorus 3.9 (2.5-4.9) mg/dl Magnesium 1.9 (1.8-2.4) mg/dl Total Bilirubin 0.8 (0.2-1) mg/dl AST 66 H (15-37) U/L ALT 48 (12-78) U/L Alkaline Phosphatase 66 (45-117) U/L Total Protein 6.7 (6.4-8.2) gm/dl Albumin 2.9 L (3.4-5.0) gm/dl Globulin 3.8 (2.5-4.0) gm/dl Albumin/Globulin Ratio 0.8 L (0.9-2) Coding Level of Care Code 57515 Subseq Hosp Care Lvl 2 Diagnoses DTs (delirium tremens) F10.231 Seizure R56.9
[2020-04-20] MEDS: DEXMEDETOMIDINE HCL 400 MCG in 0.9 % SODIUM CHLORIDE 96 ML IV SCH (09:07)
[2020-04-20] MEDS: THIAMINE HCL 100 MG TAB PO SCH (09:10)
[2020-04-20] MEDS: MULTIVITAMIN TAB PO SCH (09:10)
[2020-04-20] MEDS: FOLIC ACID 1 MG TAB PO SCH (09:10)
[2020-04-20] MEDS: NICOTINE 21 MG/24 HR TDSY TD SCH (09:11)
[2020-04-20] MEDS: HEPARIN SOD 5,000 UNIT/0.5 ML VIAL SQ SCH ×2 (09:12→21:20)
[2020-04-20] MEDS: LEVOFLOXACIN/D5W 750 MG/150 ML BAG IV SCH (14:38)
[2020-04-20] MEDS: ACETAMINOPHEN SUSP 325 MG/10.15 ML UDC PO PRN (19:22)
[2020-04-21] MEDS: NICOTINE 21 MG/24 HR TDSY TD SCH ×2 (08:29→21:03)
[2020-04-21] MEDS: MULTIVITAMIN TAB PO SCH (08:30)
[2020-04-21] MEDS: HEPARIN SOD 5,000 UNIT/0.5 ML VIAL SQ SCH ×2 (08:30→21:03)
[2020-04-21] MEDS: FOLIC ACID 1 MG TAB PO SCH (08:30)
[2020-04-21] MEDS: THIAMINE HCL 100 MG TAB PO SCH (08:30)
[2020-04-21 08:36] LABS: Calcium 9.5 mg/dl (8.5-10.1); Creatinine Clr Calc Pharmacy 146.8 ml/min; Est GFR (African American) 148.1; Est GFR (Non-African American) 127.7; Potassium 3.4 mmol/L (3.5-5.1)
--- NOTE | 2020-04-21 08:36 | Hospitalist Progress Note ---
Date of Service April 21, 2020 Assessment & Plan (1) DTs (delirium tremens): (2) Seizure: (3) Alcohol withdrawal: Seizure episode, delirium tremens Per admitting service notes Pt is 34 y/o M with PMH ETOH abuse, seizure in 2018 presented to ER with C/O seizure. 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 Co-workers were able to make sure pt did not fall and lower him to the ground. Pt does not remember incident. It is reported pt was post-ictal after event. Upon ER arrival pt is awake, alert, shaky and anxious. Pt reports drinks 8-12 beers daily. Last drink 7pm on 04/11/2020 Reported h/o seizure in 2018 that pt reports was ETOH withdrawal seizure. CT head: No acute process EEG: No evidence for focal or generalized encephalopathy and without evidence for potentially epileptogenic activity Neuro consulted, does not recommend starting any antiepileptics at this time, recommend brain MRI-pending However, patient's withdrawal symptoms escalated on hospital day #2, 04/13/2020 Transferred to ICU, subsequently intubated Was on Precedex drip, Versed and propofol Self extubated 04/14/2020 Reintubated 04/15/2020 Extubated 04/18/2020 Off Precedex drip, Versed, and Propofol, given phenobarbital Mental status improving gradually No recurrence of seizures Advance diet accordingly DC to alcohol rehab from hospital if able Brain MRI not needed unless he has more seizures (4) Fever: Likely from bacterial tracheitis tmax 39.4, still febrile last night greenish secretions per ET CXR no infiltrates, effusion urine culture coag negative staph sputum culture positive Haemophilus influenza blood cultures negative so far --Continue Levaquin (5) Alcohol abuse: Patient expressed interest in joining alcohol rehab program during admission Case management consulted, plan to transition from hospital directly to alcohol rehab when medically stable (6) Superficial venous thrombosis of arm: Left arm superficial venous thrombosis Doppler ultrasound left upper arm: 1. No evidence of left upper extremity DVT 2. Superficial thrombus involving the left basilic and cephalic veins. --Continue heparin subcutaneous for DVT prophylaxis (7) Hypomagnesemia: Monitor (8) Hypophosphatemia: Monitor (9) Transaminitis: -Secondary to alcoholism, resolved DVT Prophylaxis -Heparin subcutaneous every 12 Full Code Pt previously followed with Dr Kaur, however has not seen 10/2018 Inpatient Alcohol Rehab on DC Likely today or tomorrow ROS-No Headache, No Visual Changes, No Nausea, No Vomiting, No Fever, No Chills, No Neck Pain or Stiffness, No Chest Pain, No Palpitations, No SOB, No RAND, No Cough, No Sputum, No Wheezing, No Abdominal Pain, No Diarrhea, No Hematemesis, No Hemoptysis, No Unexpected Weight Loss, No Flank pain, No Melena, No Hematochezia, No Frequency, No Urgency, No Burning, No Hematuria, No Rashes, No Diaphoresis. Appetite is Normal Physical Exam Gen-AAO x 3, NAD, febrile last night, pleasant Head-NCAT, EOMI, PERRLA, Anicteric Sclera, No Posterior Pharyngeal Erythema Neck-Supple, No JVD, No Thyromegaly, No Masses, No LAD, No Bruits Lungs-Clear to Auscultation Bilaterally, No Rales, No Rhonchi, No Wheezing, No Crepitus Chest-No S4, +S1, +S2, No S3, No Murmurs, No Rubs, No Gallops, No Ectopy Abdomen-Soft, Bowel Sounds Present, Non Tender, Non Distended, No Hepatomegaly, No Splenomegaly, No Palpable Masses, No Rebound, No Rigidity, No Guarding Musculoskeletal-Full Range of Motion Bilaterally, No CVAT Extremities-No Cyanosis, No Clubbing, No Edema Nuero-Cranial Nerves II-XII grossly intact, Motor WNL, DTRs WNL, Strength WNL, Non Focal Psych-Normal Mood Admission and Anticipated Discharge Date Admission Date: April 12, 2020 Results & Data Results & Data ([facility]) Vital Signs (Past 12 Hours) Vital Signs Temp Pulse Pulse Resp BP Pulse Ox 04/21/20 07:34 85 04/21/20 07:11 36.7 C 81 16 128/85 93 04/21/20 04:22 36.9 C 85 16 139/83 96 04/21/20 00:44 85 04/20/20 23:24 37 C 84 16 153/90 H 97 (1) Alcohol withdrawal Complication of substance-induced condition: with unspecified complication Qualified Code(s): F10.239 - Alcohol dependence with withdrawal, unspecified
[2020-04-21 08:43] LABS: Phosphorus 4.6 mg/dl (2.5-4.9)
[2020-04-21] MEDS: LEVOFLOXACIN/D5W 750 MG/150 ML BAG IV SCH (13:49)
[2020-04-22 07:15] LABS: Hematocrit (blood only) 40.5 % (42-52); Hemoglobin 13.3 g/dL (14.0-18.0); Mean Corpuscular Hemoglobin 32.5 pg (25-34); Mean Corpuscular Hgb Conc 32.8 g/dL (32-36); Mean Platelet Volume 9.9 fL (7.4-10.4); Platelet Count 324 K/uL (130-400); RDW Coefficient of Variation 12.9 % (11.5-14.5); RDW Standard Deviation 46.9 fL (36.4-46.3); Red Blood Count 4.09 M/uL (4.7-6.1); White Blood Count 8.24 K/uL (4.8-10.8)
[2020-04-22 07:42] LABS: Calcium 9.7 mg/dl (8.5-10.1); Creatinine Clr Calc Pharmacy 134.8 ml/min; Est GFR (African American) 143.6; Est GFR (Non-African American) 123.9; Phosphorus 4.7 mg/dl (2.5-4.9)
[2020-04-22] MEDS: MULTIVITAMIN TAB PO SCH (08:00)
[2020-04-22] MEDS: THIAMINE HCL 100 MG TAB PO SCH (08:00)
[2020-04-22] MEDS: FOLIC ACID 1 MG TAB PO SCH (08:01)
[2020-04-22] MEDS: HEPARIN SOD 5,000 UNIT/0.5 ML VIAL SQ SCH (08:01)
--- NOTE | 2020-04-22 09:46 | Discharge Summary ---
Date of Service April 22, 2020 Admission HPI Per Admitting Provider Pt is 34 y/o M with PMH ETOH abuse, seizure in 2018 presented to ER with C/O seizure. 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 Co-workers were able to make sure pt did not fall and lower him to the ground. Pt does not remember incident. It is reported pt was post-ictal after event. Upon ER arrival pt is awake, alert, shaky and anxious. Pt reports drinks 8-12 beers daily. Last drink 7pm last night. Reports h/o seizure in 2018 that pt reports was ETOH withdrawal seizure. He denies any recurrent seizure like activity until today. Denies fever/chills, diaphoresis, N/V/D/C, DOTY, dizziness, syncope, vision changes, neck pain, CP, SOB, orthopnea, palpitations, cough, sore throat, choking, otalgia, rhinorrhea, abdominal pain, paresthesias, weakness, extremity weakness, extremity edema, rashes, hallucinations, urinary symptoms. Denies recreational drug use. Admission Exam Per Admitting Provider General: +anxious appearing, +shaky, WDWN Head: normocephalic, atraumatic Eyes: PERRL, EOM's intact, conjunctiva non-injected, anicteric ENT: normal inspection external ears, nose, mucous membranes moist Neck: supple, trachea midline Lungs: clear, no respiratory distress, no wheezing/rhonchi/rales CV: RRR, no murmur, no pretibial edema Abd: normal BS, soft, non-tender Ext: no cyanosis, no calf tenderness Neuro: Alert, oriented to person, place, month and year, +shaking, no other focal deficits noted, normal affect Skin: warm, dry Principal Diagnosis (1) DTs (delirium tremens): (2) Seizure: (3) Alcohol withdrawal: Discharge Exam See below Discharge Data Allergies Allergy/AdvReac Type Severity Reaction Status Date / Time No Known Allergies Allergy Verified 04/12/20 16:47 Consultations 04/12/20 16:49 ED Decision to Admit Stat 04/12/20 19:27 Consult Case Management - Discharge Planning Routine Consult Neurology Routine 04/13/20 20:22 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 Ordered Studies 04/12/20 15:33 CT head/brain wo con Stat 04/19/20 16:04 US venous doppler UE LT Urgent 04/22/20 04/22/20 Range/Units 06:48 06:48 WBC 8.24 (4.8-10.8) K/uL RBC 4.09 L (4.7-6.1) M/uL Hgb 13.3 L (14.0-18.0) g/dL Hct 40.5 L (42-52) % MCV 99.0 (80-100) fL MCH 32.5 (25-34) pg MCHC 32.8 (32-36) g/dL RDW Std Deviation 46.9 H (36.4-46.3) fL RDW Coeff of Joan 12.9 (11.5-14.5) % Plt Count 324 (130-400) K/uL MPV 9.9 (7.4-10.4) fL Sodium 141 (136-145) mmol/L Potassium 4.0 D (3.5-5.1) mmol/L Chloride 107 (98-107) mmol/L Carbon Dioxide 28 (21-32) mmol/L Anion Gap 6.0 (3-11) BUN 7 (7-18) mg/dl Creatinine 0.69 (0.6-1.4) mg/dl Est Cr Clr Drug Dosing 134.8 ml/min Est GFR ( Amer) 143.6 Est GFR (Non-Af Amer) 123.9 BUN/Creatinine Ratio 10.0 (10-20) Glucose 86 (70-99) mg/dl Calcium 9.7 (8.5-10.1) mg/dl Phosphorus 4.7 (2.5-4.9) mg/dl Magnesium 2.0 (1.8-2.4) mg/dl Hospital Course (1) DTs (delirium tremens): (2) Seizure: (3) Alcohol withdrawal: Seizure episode, delirium tremens Per admitting service notes Pt is 34 y/o M with PMH ETOH abuse, seizure in 2018 presented to ER with C/O seizure. 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 Co-workers were able to make sure pt did not fall and lower him to the ground. Pt does not remember incident. It is reported pt was post-ictal after event. Upon ER arrival pt is awake, alert, shaky and anxious. Pt reports drinks 8-12 beers daily. Last drink 7pm on 04/11/2020 Reported h/o seizure in 2018 that pt reports was ETOH withdrawal seizure. CT head: No acute process EEG: No evidence for focal or generalized encephalopathy and without evidence for potentially epileptogenic activity Neuro consulted, does not recommend starting any antiepileptics at this time, recommend brain MRI-pending However, patient's withdrawal symptoms escalated on hospital day #2, 04/13/2020 Transferred to ICU, subsequently intubated Was on Precedex drip, Versed and propofol Self extubated 04/14/2020 Reintubated 04/15/2020 Extubated 04/18/2020 Off Precedex drip, Versed, and Propofol, given phenobarbital Mental status improving gradually No recurrence of seizures Advance diet accordingly DC to alcohol rehab from hospital if able Brain MRI not needed unless he has more seizures (4) Fever: Likely from bacterial tracheitis tmax 39.4, still febrile last night greenish secretions per ET CXR no infiltrates, effusion urine culture coag negative staph sputum culture positive Haemophilus influenza blood cultures negative so far --Continue Levaquin (5) Alcohol abuse: Patient expressed interest in joining alcohol rehab program during admission Case management consulted, plan to transition from hospital directly to alcohol rehab today (6) Superficial venous thrombosis of arm: Left arm superficial venous thrombosis Doppler ultrasound left upper arm: 1. No evidence of left upper extremity DVT 2. Superficial thrombus involving the left basilic and cephalic veins. --Continue heparin subcutaneous for DVT prophylaxis (7) Hypomagnesemia: Monitor (8) Hypophosphatemia: Monitor (9) Transaminitis: -Secondary to alcoholism, resolved Full Code Pt previously followed with Dr Kaur, however has not seen 10/2018 Inpatient Alcohol Rehab on DC Likely today ROS-No Headache, No Visual Changes, No Nausea, No Vomiting, No Fever, No Chills, No Neck Pain or Stiffness, No Chest Pain, No Palpitations, No SOB, No RAND, No Cough, No Sputum, No Wheezing, No Abdominal Pain, No Diarrhea, No Hematemesis, No Hemoptysis, No Unexpected Weight Loss, No Flank pain, No Melena, No Hematochezia, No Frequency, No Urgency, No Burning, No Hematuria, No Rashes, No Diaphoresis. Appetite is Normal Physical Exam Gen-AAO x 3, NAD, febrile last night, pleasant Head-NCAT, EOMI, PERRLA, Anicteric Sclera, No Posterior Pharyngeal Erythema Neck-Supple, No JVD, No Thyromegaly, No Masses, No LAD, No Bruits Lungs-Clear to Auscultation Bilaterally, No Rales, No Rhonchi, No Wheezing, No Crepitus Chest-No S4, +S1, +S2, No S3, No Murmurs, No Rubs, No Gallops, No Ectopy Abdomen-Soft, Bowel Sounds Present, Non Tender, Non Distended, No Hepatomegaly, No Splenomegaly, No Palpable Masses, No Rebound, No Rigidity, No Guarding Musculoskeletal-Full Range of Motion Bilaterally, No CVAT Extremities-No Cyanosis, No Clubbing, No Edema Nuero-Cranial Nerves II-XII grossly intact, Motor WNL, DTRs WNL, Strength WNL, Non Focal Psych-Normal Mood Total Time Total Time Spent Total Time Spent (In Minutes): 45 mins Total Time Includes: Examination of the Patient, Discharge Planning, Medication Reconciliation and Communication With Other Providers Discharge Plan Discharge Items Patient Disposition: Drug & Alcohol Rehab Reason For Visit: SEIZURE Discharge Diagnosis: (1) DTs (delirium tremens): (2) Seizure: (3) Alcohol withdrawal: Condition on Discharge: Good Activity: Resume your previous activity Lifting: None and Gradually increase as tolerated Bathing: No limitations Sexual Activity: When tolerated Exercise/Sports: Gradually increase as tolerated Driving/Machine Use: No limitations Weightbearing: Full weightbearing Non-emergency contact: Primary Care Provider and [employer] Call non-emergency contact if: you have any medication questions Follow-up/Referrals: PCP,NO [Primary Care Provider] - Diet: Regular Addtl Attending Provider Instructions: None Pending Studies at Discharge: No Stand-Alone Forms: My [facility] Skilled Items Patient informed of condition?: Yes DNR: No Discharge Level of Care: Other Communicable Disease: No Discharge Prognosis: Stable Lines: None Urinary Catheter: No Medications and DC Order Prescriptions: New multivitamin [Daily-Aliyah] Tablet 1 tab PO QAM Qty: 100 RF: 0 thiamine HCl (vitamin B1) [Vitamin B-1] 100 mg Tablet 100 mg PO QAM Qty: 30 RF: 0 folic acid 1 mg Tablet 1 mg PO QAM Qty: 30 RF: 0 No Action No Known Home Medications RF: 0 Discharge Orders: Discharge Order (Routine); Ordered 04/22/20 Ordered By: Peter Sosa Admission Data Admit Date/Time: 04/12/20 17:52 Attending Provider: Peter Sosa Admit Provider: Belgica Wu I. Primary Care Provider: PCP,NO Other Providers: Belgica Wu I. ; Ruddy Bethea Muqueet
[2020-04-22] MEDS: NICOTINE 21 MG/24 HR TDSY TD SCH (11:00)
[2020-04-22] MEDS: LEVOFLOXACIN/D5W 750 MG/150 ML BAG IV SCH (13:17)
== END 2020-04-22 17:00 | disposition home or self-care (01) | DRG 896 ==
LOC: ED 15:01 → SUATTDRO 17:52 → 2S 17:52 → 1E 04-13 18:14 → 2N 04-20 11:38